=== PATIENT | female | born 1930 | race Caucasian/White ===

== ENCOUNTER → 2016-06-08 | Outpatient (CLI) | payer OTHER ==
[~2016-06-08] MED LIST: ADVIN25/60 INH; ATOR-54 PO; B-COTAB18 PO; CEFP100T7 PO; CHOL100010 PO; CHOL20007 PO; CLOP1TAB54 PO; CMD5 PO; DIGO0.1219 PO; FLUT0.15 NAE; FURO-85 PO; ISOS-11 PO; LISI-725 PO; MAGN400T6 PO; METO25TA3 PO; NITR0.4S UT; PANT1TAB3 PO; PHEN-876 PO; POTA1CAP2 PO; SENN8.6C PO; TPRSR/25 PO; TPRSR50 PO; TRAZ50TA35 PO; TYLOTC500 PO; VNTHFA/IN INH; WARF4TAB8 PO; ZNTT/150 PO
[2016-06-08 10:20] LABS: INR 3.4 (0.9-1.1); PROTHROMBIN TIME (PATIENT) 38.3 SECONDS (9.0-12.0)
== END ==
LOC: C.LABFOXMH 09:32
PROVIDERS: ATTEND Internal Medicine
DX: Z79.01 Long term (current) use of anticoagulants (principal); Z51.81 Encounter for therapeutic drug level monitoring

== ENCOUNTER → 2016-06-22 | Outpatient (CLI) | payer OTHER ==
[~2016-06-22] MED LIST changes: -B-COTAB18 PO; -CEFP100T7 PO; -CHOL20007 PO; -DIGO0.1219 PO; -METO25TA3 PO; -PANT1TAB3 PO; +PANT1TAB48 PO; -PHEN-876 PO; -WARF4TAB8 PO; -ZNTT/150 PO
[2016-06-22 10:04] LABS: PROTHROMBIN TIME (PATIENT) 56.7 SECONDS (9.0-12.0)
== END | disposition home or self-care (01) ==
LOC: C.LABFOXMH 09:07
PROVIDERS: ATTEND Internal Medicine
DX: Z51.81 Encounter for therapeutic drug level monitoring (principal); Z79.01 Long term (current) use of anticoagulants

== ENCOUNTER → 2016-06-29 | Outpatient (CLI) | payer OTHER ==
[2016-06-29 08:57] LABS: ALT/SGPT 24 U/L (12-78); BLOOD UREA NITROGEN 16 mg/dl (7-18); BUN/CREATININE RATIO 20.9 (10-20); CALCIUM 8.9 mg/dl (8.5-10.1); CARBON DIOXIDE 28 mmol/L (21-32); CHLORIDE 109 mmol/L (98-107); CREATININE 0.75 mg/dl (0.60-1.20); GLUCOSE 83 mg/dl (70-99); INR 2.4 (0.9-1.1); POTASSIUM 3.9 mmol/L (3.5-5.1); PROTHROMBIN TIME (PATIENT) 26.3 SECONDS (9.0-12.0); SODIUM 148 mmol/L (136-145)
[2016-06-29 09:00] LABS: ALB/GLOB RATIO 1.3 (0.9-2); ALKALINE PHOSPHATASE 62 U/L (45-117); AST/SGOT 24 U/L (15-37)
== END | disposition home or self-care (01) ==
LOC: C.LABFOXMH 08:29
PROVIDERS: ATTEND Internal Medicine
DX: Z51.81 Encounter for therapeutic drug level monitoring (principal); Z79.01 Long term (current) use of anticoagulants; I10 Essential (primary) hypertension

== ENCOUNTER → 2016-07-13 | Outpatient (CLI) | payer OTHER ==
[2016-07-13 09:53] LABS: INR 2.2 (0.9-1.1); PROTHROMBIN TIME (PATIENT) 24.9 SECONDS (9.0-12.0)
== END | disposition home or self-care (01) ==
LOC: C.LABFOXMH 09:00
PROVIDERS: ATTEND Internal Medicine
DX: Z51.81 Encounter for therapeutic drug level monitoring (principal); Z79.01 Long term (current) use of anticoagulants

== ENCOUNTER → 2016-07-27 | Outpatient (CLI) | payer OTHER ==
[2016-07-27 10:01] LABS: INR 1.8 (0.9-1.1); PROTHROMBIN TIME (PATIENT) 20.1 SECONDS (9.0-12.0)
== END ==
LOC: C.LABFOXMH 08:53
PROVIDERS: ATTEND Internal Medicine
DX: Z79.01 Long term (current) use of anticoagulants (principal)

== ENCOUNTER → 2016-08-10 | Outpatient (CLI) | payer OTHER ==
[2016-08-10 08:51] LABS: PROTHROMBIN TIME (PATIENT) 21.7 SECONDS (9.0-12.0)
== END ==
LOC: C.LABFOXMH 08:20
PROVIDERS: ATTEND Internal Medicine
DX: Z79.01 Long term (current) use of anticoagulants (principal)

== ENCOUNTER → 2016-08-17 | Outpatient (CLI) | payer OTHER | END | disposition home or self-care (01) | LOC: C.LABFOXMH 16:39 | PROVIDERS: ATTEND Internal Medicine | DX: R30.0 Dysuria (principal) ==

== ENCOUNTER → 2016-08-31 | Outpatient (CLI) | payer OTHER ==
[2016-08-31 09:52] LABS: INR 1.9 (0.9-1.1); PROTHROMBIN TIME (PATIENT) 20.7 SECONDS (9.0-12.0)
== END | disposition home or self-care (01) ==
LOC: C.LABFOXMH 09:02
PROVIDERS: ATTEND Internal Medicine
DX: Z79.01 Long term (current) use of anticoagulants (principal)

== ENCOUNTER → 2016-09-21 | Outpatient (CLI) | payer OTHER ==
[~2016-09-21] MED LIST changes: +B-COTAB18 PO; +CEFP100T7 PO; +CHOL20007 PO; +DIGO0.1219 PO; +METO25TA3 PO; +PHEN-876 PO; +WARF4TAB8 PO; +ZNTT/150 PO
[2016-09-21 09:40] LABS: INR 1.5 (0.9-1.1); PROTHROMBIN TIME (PATIENT) 16.2 SECONDS (9.0-12.0)
== END | disposition home or self-care (01) ==
LOC: C.LABFOXMH 08:45
PROVIDERS: ATTEND Internal Medicine
DX: Z79.01 Long term (current) use of anticoagulants (principal)

== ENCOUNTER → 2016-10-05 | Outpatient (CLI) | payer OTHER ==
[2016-10-05 09:05] LABS: BLOOD UREA NITROGEN 11 mg/dl (7-18); BUN/CREATININE RATIO 12.7 (10-20); CARBON DIOXIDE 32 mmol/L (21-32); CHLORIDE 103 mmol/L (98-107); CREATININE 0.83 mg/dl (0.60-1.20); GLUCOSE 99 mg/dl (70-99); INR 2.4 (0.9-1.1); POTASSIUM 3.7 mmol/L (3.5-5.1); SODIUM 142 mmol/L (136-145)
[2016-10-05 09:18] LABS: CALCIUM 9.1 mg/dl (8.5-10.1)
== END | disposition home or self-care (01) ==
LOC: C.LABFOXMH 08:33
PROVIDERS: ATTEND Internal Medicine
DX: Z51.81 Encounter for therapeutic drug level monitoring (principal); Z79.01 Long term (current) use of anticoagulants; I50.30 Unspecified diastolic (congestive) heart failure

== ENCOUNTER → 2016-10-08 | Outpatient (CLI) | payer OTHER ==
--- NOTE | 2016-10-08 15:11 | DIAGNOSTIC IMAGING REPORT ---
CHEST 2 VIEWS ROUTINE CLINICAL HISTORY: Cough. COMPARISON STUDY: Chest radiograph May 07, 2016. FINDINGS: An electronic device projects over the chest. Cardiomediastinal silhouette is stable. There is no evidence of pulmonary edema. There is no pneumothorax or pleural effusion. Mild reticulonodular interstitial thickening is noted within the right lung and left lower lung. There is no confluence consolidation. IMPRESSION: Mild scattered reticulonodular interstitial thickening which may reflect tree-in-bud opacities. No lobar consolidation. Electronically signed by: Charan Echavarria M.D. 10/08/2016 3:10 PM Dictated Date/Time: 10/08/2016 3:08 PM
== END | disposition home or self-care (01) ==
LOC: C.RADBC 14:27
PROVIDERS: ATTEND Internal Medicine
DX: R05 Cough (principal); R91.8 Other nonspecific abnormal finding of lung field

== ENCOUNTER → 2016-10-26 | Outpatient (CLI) | payer OTHER ==
[2016-10-26 11:11] LABS: INR 2.3 (0.9-1.1); PROTHROMBIN TIME (PATIENT) 25.1 SECONDS (9.0-12.0)
== END | disposition home or self-care (01) ==
LOC: C.LABFOXMH 09:37
PROVIDERS: ATTEND Internal Medicine
DX: Z51.81 Encounter for therapeutic drug level monitoring (principal); Z79.01 Long term (current) use of anticoagulants

== ENCOUNTER → 2016-11-16 | Outpatient (CLI) | payer OTHER ==
[2016-11-16 10:39] LABS: INR 2.3 (0.9-1.1); PROTHROMBIN TIME (PATIENT) 25.3 SECONDS (9.0-12.0)
== END | disposition home or self-care (01) ==
LOC: C.LABFOXMH 08:38
PROVIDERS: ATTEND Internal Medicine
DX: Z51.81 Encounter for therapeutic drug level monitoring (principal); Z79.01 Long term (current) use of anticoagulants

== ENCOUNTER → 2016-11-30 | Outpatient (CLI) | payer OTHER | END | disposition home or self-care (01) | LOC: C.LABFOXMH 14:57 | PROVIDERS: ATTEND Internal Medicine | DX: R35.0 Frequency of micturition (principal) ==

== ENCOUNTER → 2016-12-06 | Outpatient (CLI) | payer OTHER ==
[~2016-12-06] MED LIST changes: -B-COTAB18 PO; -CEFP100T7 PO; -CHOL20007 PO; -DIGO0.1219 PO; -METO25TA3 PO; -PHEN-876 PO; -WARF4TAB8 PO; -ZNTT/150 PO
[2016-12-06 08:55] LABS: BLOOD UREA NITROGEN 19 mg/dl (7-18); BUN/CREATININE RATIO 21.6 (10-20); CARBON DIOXIDE 30 mmol/L (21-32); CHLORIDE 107 mmol/L (98-107); CREATININE 0.88 mg/dl (0.60-1.20); GLUCOSE 92 mg/dl (70-99); SODIUM 143 mmol/L (136-145)
[2016-12-06 09:04] LABS: INR 1.7 (0.9-1.1); PARTIAL THROMBOPLASTIN RATIO 1.2; PROTHROMBIN TIME (PATIENT) 18.7 SECONDS (9.0-12.0)
[2016-12-06 09:09] LABS: HEMATOCRIT 41.9 % (37-47); MEAN CELL VOLUME 91.5 fL (80-100); MEAN CORPUSCULAR HEMOGLOBIN 29.9 pg (25-34); MEAN CORPUSCULAR HGB CONC 32.7 g/dl (32-36); PLATELET COUNT 146 K/uL (130-400); RED BLOOD COUNT 4.58 M/uL (4.2-5.4)
== END | disposition home or self-care (01) ==
LOC: C.LABFOXMH 07:54
PROVIDERS: ATTEND Internal Medicine Cardiovascular Disease
DX: Z01.818 Encounter for other preprocedural examination (principal)

== ENCOUNTER 2016-12-09 06:30 | Observation (INO) | payer OTHER ==
[~2016-12-09] VITALS: Ht 157.5 cm; Wt 47.0 kg
[2016-12-09] VITALS (13 sets, daily range): BP systolic 103–172; BP diastolic 62–86; PULSE 52–62; TEMP 36.4–36.8; O2SAT 93–100; Ht 157.5 cm; Wt 47.0 kg
[~2016-12-09 06:30] MED LIST changes: -TPRSR/25 PO
[2016-12-09] MEDS ORDERED: KEFZOL SPECIAL PROCEDURE STOCK 1 GM ADDVIAL IV ONE (07:37)
[2016-12-09] MEDS ORDERED: TPRSR/25 PO (07:41)
[2016-12-09] MEDS ORDERED: BACITRACIN 50000 UNIT VIAL ONE (08:27)
[2016-12-09] MEDS ORDERED: MIDAZOLAM HCL 1 MG/ML 2ML VIAL ONE (08:27)
[2016-12-09] MEDS ORDERED: BACITRACIN OINT 0.9 GM PKT ONE (08:27)
[2016-12-09] MEDS ORDERED: LIDOCAINE HCL 1% 20 ML VIAL ONE ×2 (08:27→09:30)
[2016-12-09] MEDS ORDERED: FENTANYL CITRATE INJ 50 MCG/1 ML 2 ML VIAL ONE (08:27)
--- NOTE | 2016-12-09 08:32 | History & Physical Bridge Note ---
H&P Re-Evaluation Bridge Note: I have examined the patient, reviewed the History & Physical and in the interval since the performance of the History & Physical I have noted the following changes of clinical significance: No changes noted. I reviewed the indications, procedure, risks and alternatives with her and her daughter and they understand and she agrees to proceed. Consent obtained.
--- NOTE | 2016-12-09 08:33 | Procedure Note ---
Pre-Mod Sedation Assessment General Date of Moderate Sedation: Dec 09, 2016. Vital Signs: Vital Signs Past 12 Hours Date Time Temp Pulse Resp B/P (MAP) Pulse Ox O2 Delivery O2 Flow Rate FiO2 12/09/16 07:12 36.4 52 16 154/72 97 Room Air Review Cardiovascular: regular rate, rhythm, + bradycardia Abdomen: normal bowel sounds Lungs: lungs clear Pre-Sedation Airway Assessment Oral Cavity: Capped Teeth Short Thick Neck: No Hx of Sleep Apnea: No Smoking Status: Never Smoker Procedure Planning Contraindications-for Mod Sed: None Yes Notes The planned sedation has been discussed with the patient and consent obtained. I have identified the patient, determined the appropriateness of sedation and have assessed the patient immediately prior to the procedure. All medicine(s) and interventions are by my order.
[2016-12-09] MEDS ORDERED: KETOROLAC TROMETHAMINE 10 MG TAB PO PRN (10:15)
[2016-12-09] MEDS ORDERED: NITROGLYCERIN 0.4 MG SL PER TAB CHARGE UT PRN (10:15)
[2016-12-09] MEDS ORDERED: TRAZODONE HCL 50 MG TAB PO PRN (10:15)
--- NOTE | 2016-12-09 10:16 | Procedure Note ---
Post-Mod Sedation Assessment General Date of Moderate Sedation Dec 09, 2016. Vital Signs: Vital Signs Past 12 Hours Date Time Temp Pulse Resp B/P (MAP) Pulse Ox O2 Delivery O2 Flow Rate FiO2 12/09/16 10:00 59 10 137/71 (93) 99 Mask 4 12/09/16 07:12 36.4 52 16 154/72 97 Room Air Review - Discharge Criteria Vital Signs Stable: Yes Alert/Oriented/Conversant: Yes Returned to Baseline Mental St: Yes Nausea Absent/Minimal: Yes Pain/Discomfort/Absent/Minimal: Yes Normal/Baseline Respirations: Yes Active Bleeding?: No
--- NOTE | 2016-12-09 10:17 | Cardiology Procedure Brief Nt ---
Preliminary Cardiology Note Procedure Date Dec 09, 2016. 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
[2016-12-09] MEDS ORDERED: KETOROLAC TROMETHAMINE 10 MG TAB PO ONE (10:38)
[2016-12-09] MEDS ORDERED: IV FLUIDS COMPLETED PRN (12:15)
[2016-12-09 13:34] LABS: INR 1.1 (0.9-1.1); PROTHROMBIN TIME (PATIENT) 11.6 SECONDS (9.0-12.0)
[2016-12-09] MEDS: METOPROLOL SUCC 25MG EXT REL TAB PO SCH (13:48)
[2016-12-09] MEDS ORDERED: WARFARIN SOD 5 MG TAB PO SCH (16:00)
[2016-12-09] MEDS: CEFAZOLIN IV 1,000 MG in DEXTROSE 5% 50ML 50 ML IV SCH (16:20)
[2016-12-09] MEDS: FLUTICASONE/SALMETEROL 250/50 (ADVAIR) 14 PUFF/1 INHALER INH SCH (21:00)
[2016-12-09] MEDS: ACETAMINOPHEN 325 MG TAB PO PRN (21:50)
[2016-12-10] MEDS: CEFAZOLIN IV 1,000 MG in DEXTROSE 5% 50ML 50 ML IV SCH ×2 (00:06→08:59)
[2016-12-10 04:30] VITALS: BP 174/91; PULSE 61; TEMP 36.8; O2SAT 96
[2016-12-10] MEDS: ACETAMINOPHEN 325 MG TAB PO PRN (06:33)
[2016-12-10 06:51] LABS: INR 1.1 (0.9-1.1); PROTHROMBIN TIME (PATIENT) 11.4 SECONDS (9.0-12.0)
[2016-12-10 07:52] VITALS: BP 161/89; PULSE 60; TEMP 36.4; O2SAT 93
[2016-12-10] MEDS: METOPROLOL SUCC 25MG EXT REL TAB PO SCH (07:56)
[2016-12-10] MEDS: FLUTICASONE/SALMETEROL 250/50 (ADVAIR) 14 PUFF/1 INHALER INH SCH (07:56)
[2016-12-10] MEDS ORDERED: LISINOPRIL 20 MG TAB PO SCH (09:00)
[2016-12-10] MEDS ORDERED: FUROSEMIDE 20 MG TAB PO SCH (09:00)
[2016-12-10] MEDS ORDERED: PANTOprazole SOD 40 MG TAB PO SCH (09:00)
[2016-12-10] MEDS ORDERED: CLOPIDOGREL BISULFATE 75 MG TAB PO SCH (09:00)
[2016-12-10] MEDS ORDERED: ATORVASTATIN 20 MG TAB PO SCH (09:00)
--- NOTE | 2016-12-10 09:29 | DIAGNOSTIC IMAGING REPORT ---
CHEST 2 VIEWS ROUTINE HISTORY:86 yearsFemaleEXACT TIME ORDERED Evaluate for pneumothorax and lead placement COMPARISON: Chest radiographs 10/08/2016. TECHNIQUE: Frontal and lateral views of the chest. FINDINGS: There has been interval removal of the previously described electronic device over the left chest. Interval placement of left pectoral dual-lead pacer with leads overlying the right atrial appendage and right ventricle. The leads appear to be intact. No postprocedural pneumothorax is identified. The cardiac silhouette is enlarged. Bronchiectasis with mild degree of background reticular opacities in a multilobar distribution again noted. The bones appear to be grossly intact. Mild hyperinflation. There is atherosclerosis of the aorta. IMPRESSION: 1. Interval placement of left pectoral dual-lead pacer with leads appearing to be in appropriate position. No postprocedural pneumothorax. 2. Pulmonary hyperinflation with unchanged bronchiectasis and chronic reticular opacities. The above report was generated using voice recognition software. It may contain grammatical, syntax or spelling errors. Electronically signed by: Jg Cowan 12/10/2016 9:28 AM Dictated Date/Time: 12/10/2016 9:25 AM
[2016-12-10] MEDS ORDERED: TPRSR/25 PO (09:30)
--- NOTE | 2016-12-10 09:55 | Discharge Instructions ---
Discharge Instructions Date of Service Dec 10, 2016. Admission Sick Sinus Syndrome Discharge Discharge Diagnosis / Problem: Loop recorder explantation and dual-chamber pacemaker implantation Discharge Goals Goal(s): Improve disease control Activity Recommendations Activity Limitations: as noted below ACTIVITY RECOMMENDATIONS: * Do not raise affected arm over head for 2 weeks. SPECIAL CARE INSTRUCTIONS: * If bleeding occurs, apply direct pressure to area for 5 minutes. * Call your doctor if you have severe pain, fever, drainage or bleeding at site. * Keep dressing on and dry for 48 hours then remove. * Keep any scheduled doctor's appointment. * Implant Card - hand held device with website information given. SKIN IRRITATION: * You may experience some redness and/or swelling in the area where radiation was administered. If any skin irritation occurs, please contact your family physician. FOLLOW UP VISIT: 12/13/2016 @ 10:00 am for incision check 12/29/2016 @ 1:00 pm for pacemaker check . Current Hospital Diet Patient's current hospital diet: AHA Diet (Heart Healthy) Discharge Diet Recommended Diet: AHA Diet (Heart Healthy) Pending Studies Studies pending at discharge: no Medical Emergencies . Who to Call and When: Medical Emergencies: If at any time you feel your situation is an emergency, please call 911 immediately. . Non-Emergent Contact Non-Emergency issues call your: Rag Baler . . "Provider Documentation" section prepared by Radha Hutchinson. . VTE Core Measure Inpt VTE Proph given/why not?: Treatment not indicated
--- NOTE | 2016-12-10 10:09 | Discharge Summary ---
Discharge Summary Admission Date: Dec 09, 2016 at 10:10 Discharge Date: Dec 10, 2016 Discharge Disposition: intermediate facility Primary Diagnosis: Sick sinus syndrome Secondary Diagnoses/Problems: Medical Problems: (1) Atrial fibrillation with RVR Status: Acute (2) Bradycardia Status: Acute (3) Bronchitis Status: Acute (4) Precordial chest pain Status: Acute Procedures: Loop recorder explantation and dual-chamber pacemaker implantation Discharge Instructions Last Recorded Wt (Kilograms): 47.000 Activity Recommendations: limitations as noted below Diet At Discharge: resume previous diet Allergies: Coded Allergies: Alendronate (Unverified Allergy, Mild, GI SYMPTOMS, 05/07/16) Prednisone (Unverified Allergy, Unknown, UNKOWN , 05/07/16) Additional Instructions: ACTIVITY RECOMMENDATIONS: * Do not raise affected arm over head for 2 weeks. SPECIAL CARE INSTRUCTIONS: * If bleeding occurs, apply direct pressure to area for 5 minutes. * Call your doctor if you have severe pain, fever, drainage or bleeding at site. * Keep dressing on and dry for 48 hours then remove. * Keep any scheduled doctor's appointment. * Implant Card - hand held device with website information given. SKIN IRRITATION: * You may experience some redness and/or swelling in the area where radiation was administered. If any skin irritation occurs, please contact your family physician. FOLLOW UP VISIT: Keep any scheduled doctor appointments. Special Care: Call your doctor if: * Temperature above 101 degrees * Pain not relieved by pain medicine ordered * There is increased drainage or redness from any incision * You have any unanswered questions or concerns. Avoid all tobacco products. If you need help to stop smoking, call [place]'s FREE QUITLINE at . This is a free call. Admission HPI The patient returns today for cardiology follow-up. She is accompanied by her daughter. They would like to discuss having the patient set up for implantation of a permanent pacemaker. They would like to discuss the indications, benefits, risks, and alternatives of the pacemaker with me. Patient states that she continues to have episodes of lightheadedness. These are more prominent after quick activities such as playing ping-pong. 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 This can last for several seconds. No syncope. No associated palpitations. She denies any palpitations. No orthopnea or PND. No chest pain or other anginal type pains. She does have occasional lower leg, ankle, and pedal edema. This improved with diuretic therapy. No symptoms suggestive of a CVA or TIA. No symptoms suggestive of a thromboembolic event. Stable appetite. No abdominal pain or nausea. Occasional bright red blood in her stools which she attributes to bleeding hemorrhoids. No black stools. No pulmonary complaints. No urinary complaints. No fevers or chills. She complains of dry skin. No other skin complaints. No HEENT complaints. Daughter states that her mother's cognitive function had decreased after her October 2015 admission. Since then her cognitive function has improved. The patient is again living in her apartment. She had been in assisted following her discharge in October. Admission Physical Exam General appearance is normal. No distress. Head: Normal. Eyes: Anicteric. Conjunctiva pale. No xanthelasma. Pupils equal and round. Neck: Jugular venous pressure less than 7 cm .Carotids 2/2 bilaterally. Normal upstroke. No bruits. Lungs: Clear. No rales or wheezes. Normal respiratory effort. Heart: PMI is normal.No lifts or heaves. Regular rate and rhythm. S1-S2 normal. No S3 or S4. No murmur or rub. Abdomen: Soft and nontender. Normal bowel sounds. No bruits. No palpable masses or organomegaly. Extremities:Trace pretibial edema. No cyanosis or clubbing. Neurologic: Alert and oriented x3. Motor grossly intact. Affect is normal. She walks with use of a cane. Pulses: Distal pulses palpable in all extremities. Skin: No rashes. Hospital Course Patient is an 86-year-old female with paroxysmal atrial fibrillation and sinus node dysfunction who underwent loop recorder explantation and dual-chamber pacemaker implantation on 12/09/[address] Mckeon. She tolerated the procedure well. CXR following device insertion showed no pneumothorax. Device check showed excellent sensing and pacing characteristics. She was hypertensive throughout her hospital stay, therefore, her Metoprolol succinate was increased from 100 to 150 mg daily. Her other medications remained unchanged. She was deemed stable for discharge on 12/10/2016. She will have follow-up for incision check in 3 days and device check in 1 month. Total time spent on discharge = This includes examination of the patient, discharge planning, medication reconciliation, and communication with other providers.
[2016-12-10 10:10] VITALS: BP 153/83; PULSE 60; TEMP 36.4; O2SAT 95
--- NOTE | 2016-12-10 17:31 | Cardiology Follow-Up ---
Subjective Date of Service: Dec 10, 2016. Pt evaluation today including: conversation w/ patient, physical exam, lab review, review of studies, review of inpatient medication list History of Present Illness Feeling well post-pacemaker implantation, no significant discomfort. Social History Smoking Status: Never Smoker History of Alcohol Use: Yes Review of Systems Respiratory: No shortness of breath Cardiac: No chest pain Objective Vital Signs Past 12 Hours Date Time Temp Pulse Resp B/P (MAP) Pulse Ox O2 Delivery O2 Flow Rate FiO2 12/10/16 10:10 36.4 60 18 95 Room Air 12/10/16 08:00 Room Air 12/10/16 07:52 36.4 60 16 161/89 (113) 93 Room Air Last Recorded Weight-Kilograms: 47.000 Physical Exam Constitutional: Level of Distress: NAD Lungs: Auscultation: breath sounds normal Extremities: no edema Pacemaker site is clean and dry, no hematoma or swelling. Data Laboratory Results: Last 24 Hours Test 12/10/16 06:01 Prothrombin Time 11.4 SECONDS Prothromb Time International Ratio 1.1 Imaging: Chest x-ray shows good lead position, no pneumothorax Telemetry reviewed: Normal pacemaker operation Pacemaker evaluation: Excellent pacing and sensing characteristics. Assessment and Plan Doing well post-pacemaker implantation, lead position looks good, pacer interrogation shows excellent function. Stable for discharge. Procedures: Loop recorder explantation and dual-chamber pacemaker implantation
--- NOTE | 2016-12-21 08:42 | [facility] Operative Report ---
Operative Report Date of Service Dec 09, 2016. Operative Report Procedure Date Dec 09, 2016. Pre-Procedure Diagnosis sick sinus syndrome Post-Procedure Diagnosis same Procedure(s) Performed Dual chamber pacemaker implantation Loop recorder explantation Staff Registered Nurse Dr. Mckeon Health Plan Advisor(s) none Estimated Blood Loss 20 cc Preliminary Findings Good lead position, good measurements Recommendations Monitor overnight Specimens Old loop recorder, return to Medtronic Anesthesia local with sedation Description of procedure After obtaining informed consent for the procedure, the patient was brought to the laboratory and prepped and draped in the standard sterile manner. The left prepectoral region was anesthetized with 1% lidocaine local anesthetic and left axillary venipuncture was performed by percutaneous technique and a guidewire placed through the left subclavian vein into the superior vena cava. The area was further infiltrated with 1% lidocaine local anesthetic and a 5 cm incision was made parallel to the left clavicle and 2 cm below it and carried down to the anterior pectoralis fascia. A pacemaker pocket was formed by blunt dissection anterior to the pectoralis fascia and a bacitracin-soaked sponge (50, 000 units in 50 cc normal saline solution) was placed in the pocket. An 8 [place] Medtronic lead introducer was placed over the guidewire into the left subclavian vein, the dilator and guidewire were removed and a bipolar active fixation steroid tipped ventricular lead was advanced through the introducer into the superior vena cava. A guidewire was placed through the introducer and the introducer was stripped from the lead and guidewire. Another 8 Swedish Medtronic lead introducer was placed over the guidewire into the left subclavian vein, the dilator and guidewire were removed and a bipolar active fixation steroid tipped atrial lead was advanced through the introducer into the superior vena cava. A guidewire was placed back through the introducer and the introducer was stripped from the lead and guidewire. Using a curved stylette the ventricular lead was advanced through the right ventricular outflow tract into the pulmonary artery and then using a straight stylette was positioned in the right ventricular apex. The screw was extended fixing the lead in position. Pacing and sensing thresholds were evaluated in bipolar configuration and are recorded on the implant data sheet. Using a curved stylette the atrial lead was positioned in the region of the atrial appendage and the screw extended fixing the lead in position. Pacing and sensing thresholds were evaluated in bipolar configuration and are recorded on the implant data sheet. Once the leads were in position they were attached to the anterior pectoralis fascia using 2 sutures of 2-0 silk around each lead collar. The bacitracin- soaked sponge was removed from the pocket, hemostasis was obtained, the pacemaker was attached to the leads and placed in the pocket with the leads coiled beneath it. The incision was closed with a running double subcutaneous closure of 3-0 V-Lock absorbable suture, followed by running subcuticular skin closure of 4-0 V-Lock absorbable suture. Bacitracin ointment was placed on the incision and a pressure dressing applied. The area of the loop recorder was within the sterile field, therefore the site was anesthetized with 1% lidocaine local anesthetic at the site of the implant scar. A 1 cm incision was made and carried down to the loop recorder. Loop recorder was dissected free of tissue and explanted. The incision was closed with a subcutaneous closure of 4-0 Vicryl followed by a subcuticular skin closure of 4-0 Vicryl. Bacitracin ointment was placed on the incision and a dressing applied. Complication(s) None Disposition Data Processing Auditor recovery I attest to the content of the Intraoperative Record and any orders documented therein. Any exceptions are noted below.
== END 2016-12-10 11:44 ==
LOC: C.ACU 06:30 → C.2T 10:10 → ENRESERV 11:04 → C.2T 17:40
PROVIDERS: ADMIT Internal Medicine Cardiovascular Disease; ATTEND Internal Medicine Cardiovascular Disease
DX: I49.5 Sick sinus syndrome (principal); I44.0 Atrioventricular block, first degree; I48.0 Paroxysmal atrial fibrillation; I25.10 Atherosclerotic heart disease of native coronary artery without angina pectoris; E78.5 Hyperlipidemia, unspecified; F41.8 Other specified anxiety disorders; J45.909 Unspecified asthma, uncomplicated; I42.9 Cardiomyopathy, unspecified; M15.9 Polyosteoarthritis, unspecified; M81.0 Age-related osteoporosis without current pathological fracture; Z86.711 Personal history of pulmonary embolism; Z79.01 Long term (current) use of anticoagulants; Z79.899 Other long term (current) drug therapy

== ENCOUNTER → 2016-12-11 | Outpatient (CLI) | payer OTHER ==
[~2016-12-11] MED LIST changes: -ISOS-11 PO; -MAGN400T6 PO; +TPRSR/25 PO; -TPRSR50 PO; -TYLOTC500 PO; -VNTHFA/IN INH
[2016-12-11 01:42] LABS: URINE APPEARANCE CLEAR (CLEAR); URINE BILIRUBIN NEG (NEG); URINE COLOR YELLOW; URINE EPITHELIAL CELL AUTO >30 /lpf (0-5); URINE NITRITE NEG (NEG); URINE SPECIFIC GRAVITY 1.009 (1.000-1.030); UROBILINOGEN NEG (NEG)
[2016-12-11 01:49] LABS: MANUAL MICROSCOPIC REQUIRED? NO; REVIEW REQ? NO
== END | disposition home or self-care (01) ==
LOC: C.LABFOXMH 15:21
PROVIDERS: ATTEND Internal Medicine
DX: N39.0 Urinary tract infection, site not specified (principal)

== ENCOUNTER → 2016-12-13 | Outpatient (CLI) | payer OTHER ==
[2016-12-13 10:04] LABS: INR 1.2 (0.9-1.1); PROTHROMBIN TIME (PATIENT) 13.4 SECONDS (9.0-12.0)
== END | disposition home or self-care (01) ==
LOC: C.LABFOXDH 09:16
PROVIDERS: ATTEND Internal Medicine
DX: I48.0 Paroxysmal atrial fibrillation (principal)

== ENCOUNTER → 2016-12-21 | Outpatient (CLI) | payer OTHER ==
[2016-12-21 08:50] LABS: INR 2.4 (0.9-1.1); PROTHROMBIN TIME (PATIENT) 26.8 SECONDS (9.0-12.0)
== END ==
LOC: C.LABFOXDH 08:08
PROVIDERS: ATTEND Internal Medicine
DX: I48.0 Paroxysmal atrial fibrillation (principal)

== ENCOUNTER → 2017-01-14 | Outpatient (CLI) | payer OTHER ==
[2017-01-14 09:23] LABS: INR 1.5 (0.9-1.1); PROTHROMBIN TIME (PATIENT) 16.1 SECONDS (9.0-12.0)
== END | disposition home or self-care (01) ==
LOC: C.LABFOXMH 08:53
PROVIDERS: ATTEND Nurse Practitioner Family
DX: Z79.01 Long term (current) use of anticoagulants (principal)

== ENCOUNTER → 2017-01-21 | Outpatient (CLI) | payer OTHER ==
[2017-01-21 10:10] LABS: PROTHROMBIN TIME (PATIENT) 34.1 SECONDS (9.0-12.0)
== END | disposition home or self-care (01) ==
LOC: C.LABFOXMH 09:23
PROVIDERS: ATTEND Internal Medicine
DX: Z79.01 Long term (current) use of anticoagulants (principal)

== ENCOUNTER → 2017-02-04 | Outpatient (CLI) | payer OTHER ==
[2017-02-04 10:33] LABS: BLOOD UREA NITROGEN 19 mg/dl (7-18); BUN/CREATININE RATIO 21.9 (10-20); CALCIUM 9.2 mg/dl (8.5-10.1); CARBON DIOXIDE 32 mmol/L (21-32); CHLORIDE 107 mmol/L (98-107); CREATININE 0.85 mg/dl (0.60-1.20); GLUCOSE 101 mg/dl (70-99); POTASSIUM 4.1 mmol/L (3.5-5.1); SODIUM 142 mmol/L (136-145)
[2017-02-04 10:38] LABS: INR 3.3 (0.9-1.1); PROTHROMBIN TIME (PATIENT) 36.8 SECONDS (9.0-12.0)
== END | disposition home or self-care (01) ==
LOC: C.LABFOXMH 09:53
PROVIDERS: ATTEND Nurse Practitioner Family
DX: R53.83 Other fatigue (principal); I10 Essential (primary) hypertension; Z79.01 Long term (current) use of anticoagulants

== ENCOUNTER → 2017-02-09 | Outpatient (CLI) | payer OTHER | LOC: C.LABFOXMH 14:29 | PROVIDERS: ATTEND Internal Medicine Hospice and Palliative Medicine | DX: R35.0 Frequency of micturition (principal) ==

== ENCOUNTER → 2017-02-11 | Outpatient (CLI) | payer OTHER ==
[2017-02-11 10:04] LABS: INR 3.3 (0.9-1.1); PROTHROMBIN TIME (PATIENT) 37.1 SECONDS (9.0-12.0)
== END ==
LOC: C.LABFOXMH 09:35
PROVIDERS: ATTEND Nurse Practitioner Family
DX: Z79.01 Long term (current) use of anticoagulants (principal)

== ENCOUNTER → 2017-02-25 | Outpatient (CLI) | payer OTHER ==
[2017-02-25 12:56] LABS: INR 2.6 (0.9-1.1); PROTHROMBIN TIME (PATIENT) 29.5 SECONDS (9.0-12.0)
== END ==
LOC: C.LABFOXMH 12:19
PROVIDERS: ATTEND Internal Medicine
DX: R42 Dizziness and giddiness (principal); Z79.01 Long term (current) use of anticoagulants; Z51.81 Encounter for therapeutic drug level monitoring

== ENCOUNTER → 2017-03-08 | Outpatient (CLI) | payer OTHER ==
[2017-03-08 09:59] LABS: INR 2.3 (0.9-1.1); PROTHROMBIN TIME (PATIENT) 25.8 SECONDS (9.0-12.0)
== END | disposition home or self-care (01) ==
LOC: C.LABFOXMH 09:32
PROVIDERS: ATTEND Nurse Practitioner Family
DX: Z51.81 Encounter for therapeutic drug level monitoring (principal); Z79.01 Long term (current) use of anticoagulants

== ENCOUNTER → 2017-03-11 | Outpatient (CLI) | payer OTHER | END | disposition home or self-care (01) | LOC: C.LABFOXAC 13:34 | PROVIDERS: ATTEND Internal Medicine Hospice and Palliative Medicine | DX: R35.0 Frequency of micturition (principal) ==

== ENCOUNTER → 2017-03-15 | Outpatient (CLI) | payer OTHER | END | disposition home or self-care (01) | LOC: C.LABFOXMH 10:32 | PROVIDERS: ATTEND Internal Medicine | DX: R35.0 Frequency of micturition (principal) ==

== ENCOUNTER → 2017-03-24 | Outpatient (CLI) | payer OTHER | END | disposition home or self-care (01) | LOC: C.LABFOXMH 14:43 | PROVIDERS: ATTEND Internal Medicine Hospice and Palliative Medicine | DX: R35.0 Frequency of micturition (principal) ==

== ENCOUNTER → 2017-03-29 | Outpatient (CLI) | payer OTHER ==
[~2017-03-29] MED LIST changes: +B-COTAB18 PO; +CEFP100T7 PO; +CHOL20007 PO; +DIGO0.1219 PO; +MAGN400T6 PO; +METO25TA3 PO; +PHEN-876 PO; +VNTHFA/IN INH; +WARF4TAB8 PO; +ZNTT/150 PO
[2017-03-29 09:53] LABS: INR 2.1 (0.9-1.1); PROTHROMBIN TIME (PATIENT) 23.4 SECONDS (9.0-12.0)
== END | disposition home or self-care (01) ==
LOC: C.LABFOXMH 09:29
PROVIDERS: ATTEND Internal Medicine
DX: Z51.81 Encounter for therapeutic drug level monitoring (principal); Z79.01 Long term (current) use of anticoagulants

== ENCOUNTER → 2017-03-30 | Outpatient (CLI) | payer OTHER ==
--- NOTE | 2017-03-30 12:34 | DIAGNOSTIC IMAGING REPORT ---
CT HEAD WITHOUT CONTRAST (CT) CLINICAL HISTORY: R41.3 Memory [id number] ISCHEMIA COMPARISON STUDY: No previous studies for comparison. TECHNIQUE: Axial CT of the brain is performed from the vertex to the skull base. IV contrast was not administered for this examination. A dose lowering technique was utilized adhering to the principles of ALARA. CT DOSE: 776.86 mGycm FINDINGS: No intra or extra-axial mass lesions are visualized. There is no CT evidence of acute cortical infarction. There is no evidence of midline shift. There is no acute hemorrhage. No calvarial fractures are visualized. There are patchy white matter hypodensities likely on a small vessel basis. There is no evidence of pathologic ventricular dilatation. There is no evidence of acute sinusitis IMPRESSION: No acute intracranial findings Electronically signed by: Odilon Miguel M.D. 03/30/2017 12:33 PM Dictated Date/Time: 03/30/2017 12:32 PM
--- NOTE | 2017-03-30 13:33 | DIAGNOSTIC IMAGING REPORT ---
BILATERAL CAROTID DOPPLER STUDY HISTORY: Cerebral ischemia. COMPARISON: Carotid Doppler 08/13/2013. TECHNIQUE: Real-time, grayscale, and color Doppler sonography of the carotid arteries was performed. Imaging reviewed in the transverse and longitudinal planes. All measurements were calculated based on NASCET criteria. FINDINGS: Antegrade flow is seen in the bilateral vertebral arteries. The brachial pressures are hemodynamically similar. The peak systolic velocity within the right ICA is 87 cm/s. The right systolic ratio is 1.8. The peak systolic velocity within the left ICA is 66 cm/s. The left systolic ratio is 1.3. IMPRESSION: No hemodynamically significant stenosis seen within the carotid arteries. Electronically signed by: Olivier Godoy M.D. 03/30/2017 1:31 PM Dictated Date/Time: 03/30/2017 1:30 PM
== END | disposition home or self-care (01) ==
LOC: C.CTS 11:51
PROVIDERS: ATTEND Psychiatry & Neurology Neurology
DX: I67.82 Cerebral ischemia (principal); R41.3 Other amnesia

== ENCOUNTER → 2017-04-19 | Outpatient (CLI) | payer OTHER ==
[~2017-04-19] MED LIST changes: -CEFP100T7 PO; -CHOL100010 PO; -FURO-85 PO; -LISI-725 PO; -PANT1TAB48 PO; -POTA1CAP2 PO; -TPRSR/25 PO
[2017-04-19 09:53] LABS: INR 2.6 (0.9-1.1)
== END | disposition home or self-care (01) ==
LOC: C.LABFOXMH 08:56
PROVIDERS: ATTEND Internal Medicine
DX: Z51.81 Encounter for therapeutic drug level monitoring (principal); Z79.01 Long term (current) use of anticoagulants

== ENCOUNTER → 2017-05-10 | Outpatient (CLI) | payer OTHER ==
[2017-05-10 10:17] LABS: INR 2.2 (0.9-1.1); PROTHROMBIN TIME (PATIENT) 22.8 SECONDS (9.0-12.0)
== END | disposition home or self-care (01) ==
LOC: C.LABFOXMH 09:06
PROVIDERS: ATTEND Internal Medicine
DX: Z79.01 Long term (current) use of anticoagulants (principal); Z51.81 Encounter for therapeutic drug level monitoring

== ENCOUNTER → 2017-05-27 | Outpatient (CLI) | payer OTHER | END | disposition home or self-care (01) | LOC: C.LABFOXMH 11:32 | PROVIDERS: ATTEND Internal Medicine Hospice and Palliative Medicine | DX: R42 Dizziness and giddiness (principal) ==

== ENCOUNTER → 2017-05-31 | Outpatient (CLI) | payer OTHER ==
[~2017-05-31] MED LIST changes: +ACET-1047 PO; +AMOX1TAB43 PO; +CLC100 PO; +ERGO500011 PO; +GUAI100S66 PO; +LDDP5 TD; +MELATAB2 PO; +NRV5 PO; +OXYC-57 PO; +RANI150T85 PO; +SACC250C3 PO; +ULT50X PO; -ZNTT/150 PO
[2017-05-31 08:22] LABS: INR 1.5 (0.9-1.1)
== END ==
LOC: C.LABFOXMH 08:00
PROVIDERS: ATTEND Internal Medicine
DX: Z51.81 Encounter for therapeutic drug level monitoring (principal); Z79.01 Long term (current) use of anticoagulants; R42 Dizziness and giddiness

== ENCOUNTER → 2017-06-14 | Outpatient (CLI) | payer OTHER ==
[~2017-06-14] MED LIST changes: -ACET-1047 PO; -AMOX1TAB43 PO; -CLC100 PO; -ERGO500011 PO; -GUAI100S66 PO; -LDDP5 TD; -MELATAB2 PO; -NRV5 PO; -OXYC-57 PO; -RANI150T85 PO; -SACC250C3 PO; -ULT50X PO; +ZNTT/150 PO
[2017-06-14 10:13] LABS: INR 2.6 (0.9-1.1)
== END | disposition home or self-care (01) ==
LOC: C.LABFOXMH 09:07
PROVIDERS: ATTEND Internal Medicine
DX: Z51.81 Encounter for therapeutic drug level monitoring (principal); Z79.01 Long term (current) use of anticoagulants

== ENCOUNTER 2017-06-30 12:20 | Inpatient (IN) | payer OTHER ==
[~2017-06-30] VITALS: Ht 157.5 cm; Wt 51.3 kg
[2017-06-30] MEDS ORDERED: ACETAMINOPHEN 325 MG TAB PO STA (12:56)
[2017-06-30] MEDS ORDERED: GUAI100S16 PO (13:29)
[2017-06-30] MEDS ORDERED: MELATAB2 PO (13:29)
--- NOTE | 2017-06-30 13:45 | DIAGNOSTIC IMAGING REPORT ---
CERVICAL SPINE W/O CT DOSE: 1566.45 mGy.cm HISTORY: Trauma. Pain. Fall, neck and low back/tailbone pain TECHNIQUE: Multiaxial CT images of the cervical spine were performed and reformatted in the sagittal and coronal plane without the use of contrast. A dose lowering technique was utilized adhering to the principles of ALARA. COMPARISON: None. FINDINGS: No fractures. No subluxation. Prevertebral soft tissues and the C1-C2 interval are intact. No pneumothorax. Generalized degenerative change. No evidence for compression deformity. IMPRESSION: No fractures within the cervical spine. Generalized degenerative change. No acute process. The above report was generated using voice recognition software. It may contain grammatical, syntax or spelling errors. Electronically signed by: Malcolm Sweeney M.D. 06/30/2017 1:44 PM Dictated Date/Time: 06/30/2017 1:42 PM
--- NOTE | 2017-06-30 13:50 | DIAGNOSTIC IMAGING REPORT ---
CT OF THE HEAD WITHOUT CONTRAST CLINICAL HISTORY: Fall. COMPARISON STUDY: Head CT March 30, 2017. TECHNIQUE: Helical axial images of the head were obtained without IV contrast. Automated exposure control was utilized for the study. A dose lowering technique was utilized adhering to the principles of ALARA. FINDINGS: No acute intracranial hemorrhage, midline shift or mass effect is present. Ventricular system is stable. Basilar cisterns are patent. There are no extra axial collections. Guzman-white differentiation is maintained. Mild white matter hypodensity suggests small vessel disease. There is no calvarial fracture. IMPRESSION: 1. No acute intracranial findings. 2. No calvarial fracture. Electronically signed by: Charan Echavarria M.D. 06/30/2017 1:49 PM Dictated Date/Time: 06/30/2017 1:39 PM
--- NOTE | 2017-06-30 13:57 | EMERGENCY ROOM VISIT NOTE ---
History First contact with patient: 12:46 Chief Complaint: FALL Stated Complaint: FALL History of Present Illness The patient is a 86 year old female who presents to the Emergency Room via ambulance with complaints of "fall". The patient states that earlier today she was walking from [facility] to the [facility] for breakfast, when she tripped on the ground, noting that she was off of the sidewalk and stepped into the swell. She states that she fell backward on her buttocks. She now complains of pain in the tailbone, and notes that the left side of her neck feels tight. She denies any chest pain, shortness of breath, syncope. She did not lose consciousness. She did not strike her head. She states that when she lies flat the pain in the tailbone is very minimal however when she goes to move or takes a deep breath the pain in the tailbone is excruciating. She rates that pain currently as a 10/10. She did have Tylenol earlier today. Review of Systems A complete 10-point Review of Systems was discussed with the patient, with pertinent positives and negatives listed in the History of Present Illness. All remaining Review of Systems questions can be considered negative unless otherwise specified. Past Medical/Surgical History Medical Problems: (1) Anticoagulant long-term use (2) chronic dizziness (3) Congestive heart failure (4) Coronary artery disease (5) Myocardial infarction (6) Pulmonary embolism (7) Retroperitoneal hemorrhage (8) Sick sinus syndrome Surgical Problems: (1) H/O cardiac catheterization (2) H/O percutaneous transluminal coronary angioplasty (3) Stented coronary artery Family History Diabetes mellitus FHx: heart disease Stroke Social History Smoking Status: Never Smoker Drug Use: none Marital Status: Housing Status: [facility] Occupation Status: unemployed, retired Current/Historical Medications Scheduled Atorvastatin (Lipitor), 20 MG PO QAM B-Complex Vitamins (Vitamin B Complex), 50 MG PO QAM Cholecalciferol (Vitamin D3), 2,000 UNITS PO DAILY Clopidogrel Bisulfate (Plavix), 75 MG PO QAM Digoxin (Digox), 125 MCG PO QAM Fluticasone Prop/Salmeterol (Advair Diskus 250/50 60 Dose), 1 PUFF INH BID Magnesium Oxide (Mag-Ox), 400 MG PO QAM Melatonin (Melatonin Maximum Strengt), 5 MG PO HS Metoprolol Succ (Toprol Xl) (Toprol-Xl), 25 MG PO BID Ranitidine (Zantac), 150 MG PO BID Sennosides (Senna), 8.6 MG PO 3XWK Warfarin Sod (Coumadin), 5 MG PO 4XWK Warfarin Sod (Jantoven), 4 MG PO 3XWK Scheduled PRN Albuterol Hfa (Ventolin Hfa), 2 PUFFS INH Q6H PRN for SOB/Wheezing Fluticasone Propionate (Nasal) (Flonase Allergy Relief), 1 SPRAY DWIGHT DAILY PRN for Seasonal Allergies Guaifenesin (Guaifenesin), 10 ML PO Q4H PRN for Cough Nitroglycerin (Nitrostat), 0.4 MG UT UD PRN for Chest Pain Phenazopyridine HCl (Pyridium), 200 MG PO TID PRN for Frequency/Burning w/ Urination Physical Exam Vital Signs Date Time Temp Pulse Resp B/P (MAP) Pulse Ox O2 Delivery O2 Flow Rate FiO2 06/30/17 15:25 70 15 93 06/30/17 15:20 68 18 92 06/30/17 15:15 70 24 92 06/30/17 15:10 69 21 93 06/30/17 15:05 66 21 93 06/30/17 15:00 68 13 91 06/30/17 14:55 66 16 92 06/30/17 14:50 70 24 91 06/30/17 14:45 93 Room Air 06/30/17 14:45 71 16 190/96 94 Room Air 06/30/17 14:45 69 15 06/30/17 14:40 70 20 06/30/17 14:35 70 20 06/30/17 14:30 70 16 94 06/30/17 14:27 69 06/30/17 14:24 190/96 06/30/17 12:34 36.5 71 18 196/102 94 Room Air Physical Exam VITAL SIGNS - Vital signs and nursing notes were reviewed. Stable. Hypertensive. GENERAL -86-year-old female appearing her stated age. Communicates well with provider and answers questions appropriately. SKIN - Gross examination of the entire body surface demonstrates no lacerations to the body surface. HEAD - Normocephalic, Atraumatic. No Sheldon's Sign or Raccoon's Eyes. No depressed skull fractures palpable. EYES - PERRL with EOMI bilaterally. Without subconjunctival hemorrhage. Palpebral conjunctiva pink and moist with no injection. EARS - No deformities of external structures noted on gross examination bilaterally. No hemotympanum present. No tympanic perforation noted. Handle of malleus, umbo, cone of light, pars tensa/flaccid all easily visualized. NOSE - Midline and without cyanosis. No epistaxis or clear watery discharge noted. Septum midline without deviation. No septal hematoma noted. No overlying ecchymosis noted. MOUTH/OROPHARYNX - Without perioral cyanosis. Tongue midline with equal elevation of palate bilaterally. No blood noted in the oropharynx. No tonsillar hypertrophy, erythema, or exudates noted. No dental fractures noted. NECK - no tenderness to palpation over the cervical spinous processes. No cervical paraspinal muscle tenderness noted. LUNGS - Chest wall symmetric without accessory muscle use, intercostals retractions, or central cyanosis. No flail chest or depressed fractures noted. No paradoxical chest wall movements noted. Normal vesicular breath sounds CTA B /L. No wheezes, rales, or rhonchi appreciated. CARDIAC - RRR with S1/S2. No murmur, rubs, or gallops appreciated. ABDOMEN - Abdominal contour normal and without pulsations or visible masses. BS normoactive all four quadrants. No rebound tenderness or guarding noted. EXTREMITIES - No gross deformities noted of the extremities. No tenderness to palpation of the extremities. +5/5 strength noted in UE/LE bilaterally. MUSCULOSKELETAL: There is tenderness to palpation overlying the tailbone. No other spinous tenderness. NEUROLOGIC - Cranial nerves II through XII grossly intact. Sensory intact to light touch throughout. PSYCH - A&Ox3 and cooperates fully with examiner. Pt is very pleasant and interacts well with examiner. Medical Decision & Procedures ER Provider Diagnostic Interpretation: CT OF THE HEAD WITHOUT CONTRAST CLINICAL HISTORY: Fall. COMPARISON STUDY: Head CT March 30, 2017. TECHNIQUE: Helical axial images of the head were obtained without IV contrast. Automated exposure control was utilized for the study. A dose lowering technique was utilized adhering to the principles of ALARA. FINDINGS: No acute intracranial hemorrhage, midline shift or mass effect is present. Ventricular system is stable. Basilar cisterns are patent. There are no extra axial collections. Guzman-white differentiation is maintained. Mild white matter hypodensity suggests small vessel disease. There is no calvarial fracture. IMPRESSION: 1. No acute intracranial findings. 2. No calvarial fracture. Electronically signed by: Charan Echavarria M.D. 06/30/2017 1:49 PM Dictated Date/Time: 06/30/2017 1:39 PM CERVICAL SPINE W/O CT DOSE: 1566.45 mGy.cm HISTORY: Trauma. Pain. Fall, neck and low back/tailbone pain TECHNIQUE: Multiaxial CT images of the cervical spine were performed and reformatted in the sagittal and coronal plane without the use of contrast. A dose lowering technique was utilized adhering to the principles of ALARA. COMPARISON: None. FINDINGS: No fractures. No subluxation. Prevertebral soft tissues and the C1-C2 interval are intact. No pneumothorax. Generalized degenerative change. No evidence for compression deformity. IMPRESSION: No fractures within the cervical spine. Generalized degenerative change. No acute process. The above report was generated using voice recognition software. It may contain grammatical, syntax or spelling errors. Electronically signed by: Malcolm Sweeney M.D. 06/30/2017 1:44 PM Dictated Date/Time: 06/30/2017 1:42 PM LUMBAR SPINE WITHOUT CLINICAL HISTORY: Fall, neck and low back/tailbone pain. COMPARISON STUDY: Lumbar spine radiographs January 08, 2015. FINDINGS: Moderate L3 compression fracture is unchanged. Grade I anterolisthesis of L4 and L5 is unchanged. There is no acute lumbar spine fracture. There is moderate multilevel degenerative disc disease and facet arthrosis. A right sacral ala fracture is partially imaged on this exam. This is better depicted on the CT of the pelvis. There is an associated presacral hematoma. Paravertebral soft tissues are otherwise unremarkable. IMPRESSION: 1. Acute right sacral ala fracture which is better depicted on the CT of the pelvis. Associated presacral hematoma. 2. No acute lumbar spine fracture. 3. Old L3 compression fracture. Electronically signed by: Charan Echavarria M.D. PELVIS CT CT DOSE: HISTORY: Pelvic pain. Fall, neck and low back/tailbone pain TECHNIQUE: Multiaxial CT images of the pelvis were performed and reformatted in the sagittal and coronal plane without the use of contrast. A dose lowering technique was utilized adhering to the principles of ALARA. COMPARISON: Abdomen and pelvis CT 04/03/2017. FINDINGS: Subtle nondisplaced fracture within the anterior cortex of the S2 vertebral body best seen on sagittal image 29. This extends into the right sacral ala no fracture or dislocation within the bilateral hips. Small amount of presacral/retroperitoneal hemorrhage adjacent to the right sacral fracture. This measures up to 1.2 cm in thickness. IMPRESSION: Nondisplaced sacral fracture as described above with a small amount of right presacral/retroperitoneal hemorrhage. Electronically signed by: Olivier Godoy M.D. Laboratory Results 06/30/17 14:30 Red Blood Count 4.83, Mean Corpuscular Volume 91.9, Mean Corpuscular Hemoglobin 30.8, Mean Corpuscular Hemoglobin Concent 33.6, Mean Platelet Volume 9.7, Neutrophils (%) (Auto) 72.3, Lymphocytes (%) (Auto) 14.4, Monocytes (%) (Auto) 10.3, Eosinophils (%) (Auto) 1.9, Basophils (%) (Auto) 0.2, Neutrophils # (Auto ) 4.13, Lymphocytes # (Auto) 0.82, Monocytes # (Auto) 0.59, Eosinophils # (Auto ) 0.11, Basophils # (Auto) 0.01 06/30/17 14:30 Test 06/30/17 14:30 06/30/17 15:11 White Blood Count 5.71 K/uL (4.8-10.8) Red Blood Count 4.83 M/uL (4.2-5.4) Hemoglobin 14.9 g/dL (12.0-16.0) Hematocrit 44.4 % (37-47) Mean Corpuscular Volume 91.9 fL (80-100) Mean Corpuscular Hemoglobin 30.8 pg (25-34) Mean Corpuscular Hemoglobin Concent 33.6 g/dl (32-36) Platelet Count 132 K/uL (130-400) Mean Platelet Volume 9.7 fL (7.4-10.4) Neutrophils (%) (Auto) 72.3 % Lymphocytes (%) (Auto) 14.4 % Monocytes (%) (Auto) 10.3 % Eosinophils (%) (Auto) 1.9 % Basophils (%) (Auto) 0.2 % Neutrophils # (Auto) 4.13 K/uL (1.4-6.5) Lymphocytes # (Auto) 0.82 K/uL (1.2-3.4) Monocytes # (Auto) 0.59 K/uL (0.11-0.59) Eosinophils # (Auto) 0.11 K/uL (0-0.5) Basophils # (Auto) 0.01 K/uL (0-0.2) RDW Standard Deviation 48.6 fL (36.4-46.3) RDW Coefficient of Variation 14.4 % (11.5-14.5) Immature Granulocyte % (Auto) 0.9 % Immature Granulocyte # (Auto) 0.05 K/uL (0.00-0.02) Anion Gap 6.0 mmol/L (3-11) Est Creatinine Clear Calc Drug Dose 46.8 ml/min Estimated GFR () 91.6 Estimated GFR (Non- 79.0 BUN/Creatinine Ratio 25.9 (10-20) Calcium Level 9.4 mg/dl (8.5-10.1) Total Bilirubin 0.9 mg/dl (0.2-1) Aspartate Amino Transf (AST/SGOT) 35 U/L (15-37) Alanine Aminotransferase (ALT/SGPT) 33 U/L (12-78) Alkaline Phosphatase 76 U/L (45-117) Total Protein 6.6 gm/dl (6.4-8.2) Albumin 3.6 gm/dl (3.4-5.0) Globulin 3.0 gm/dl (2.5-4.0) Albumin/Globulin Ratio 1.2 (0.9-2) Prothrombin Time 15.1 SECONDS (9.0-12.0) Prothromb Time International Ratio 1.4 (0.9-1.1) Activated Partial Thromboplast Time 30.1 SECONDS (21.0-31.0) Partial Thromboplastin Ratio 1.2 Medications Administered Medications (Trade) Dose Ordered Sig/Samia Route Start Time Stop Time Status Last Admin Dose Admin Acetaminophen (Tylenol Tab) 325 mg NOW STAT PO 06/30/17 12:56 06/30/17 12:58 DC 06/30/17 13:10 325 MG Sodium Chloride 500 ml @ 100 mls/hr Q5H STAT IV 06/30/17 14:17 06/30/17 19:16 DC 06/30/17 14:41 100 MLS/HR Morphine Sulfate (MoRPHine SULFATE INJ) 1 mg NOW STAT IV 06/30/17 14:17 06/30/17 14:20 DC 06/30/17 14:41 1 MG Medical Decision Patient was seen and evaluated as above. She presents to us today status post fall with pain in the sacral region. She notes no loss of consciousness or syncope. There is no chest pain or shortness of breath. She notes minimal pain in the left side of her neck posteriorly and in the sacral region. Benefits versus risk of obtaining imaging was discussed and the decision was made to obtain a CT scan the patient's head, C-spine, L-spine and pelvis. This was without the use of intravenous contrast. There is no acute process noted in the patient's head or neck however there is an S2 fracture with a small amount of hemorrhage. She is well on exam. IV access was initiated, and the above workup was also performed. There is no concern of leukocytosis or anemia. INR is 1.4. This appears to be subtherapeutic. She is also on Plavix. At this time I will refrain from reversing her coagulation secondary to her low INR. Patient's metabolic panel reveals no evidence of kidney or liver failure. Troponin negative. Urine reveals high pH, 1+ ketones, small amount of leukocyte esterase, greater than 30 epithelial cells and 3+ urine bacteria. This is likely a contaminated sample given the amount of epithelial cells however culture is pending. With the image revealing a fracture, the patient not doing well with ambulation despite Tylenol and morphine I do believe that inpatient management is warranted secondary to a ventilatory dysfunction, the amount of pain she is experiencing, and perhaps observation of the fracture with small hemorrhage to ensure that this does not progress. Potential repeat CT scan in the a.m. is recommended. I spoke with the attending physician, and subsequently the hospitalist, Dr. Braga. He will personally evaluated the patient. The patient will be admitted for further evaluation and management. Please refer to further documentation regarding her stay. In the evaluation and treatment of this patient the following differential diagnoses entertained: Fracture, dislocation, hemorrhage, among others. Patient's medication list was reviewed. Patient was found to be hypotensive I believe secondary to situational and the pain she is experiencing from the fracture today. Impression Primary Impression: Fall Additional Impression: Sacral fracture, closed Departure Information Referrals Alfreda Montalvo (PCP) Patient Instructions My [facility] Problem Qualifiers
--- NOTE | 2017-06-30 14:02 | DIAGNOSTIC IMAGING REPORT ---
LUMBAR SPINE WITHOUT CLINICAL HISTORY: Fall, neck and low back/tailbone pain. COMPARISON STUDY: Lumbar spine radiographs January 08, 2015. FINDINGS: Moderate L3 compression fracture is unchanged. Grade I anterolisthesis of L4 and L5 is unchanged. There is no acute lumbar spine fracture. There is moderate multilevel degenerative disc disease and facet arthrosis. A right sacral ala fracture is partially imaged on this exam. This is better depicted on the CT of the pelvis. There is an associated presacral hematoma. Paravertebral soft tissues are otherwise unremarkable. IMPRESSION: 1. Acute right sacral ala fracture which is better depicted on the CT of the pelvis. Associated presacral hematoma. 2. No acute lumbar spine fracture. 3. Old L3 compression fracture. Electronically signed by: Charan Echavarria M.D. 06/30/2017 2:00 PM Dictated Date/Time: 06/30/2017 1:52 PM
[2017-06-30] MEDS ORDERED: SODIUM CHLORIDE 0.9% 500ML 500 ML IV STA (14:17)
[2017-06-30] MEDS ORDERED: MoRPHine SULFATE 4 MG/ML 1 ML CARP\\VIAL IV STA ×2 (14:17→16:02)
--- NOTE | 2017-06-30 14:28 | EMERGENCY ROOM VISIT NOTE ---
ED Visit Note First contact with patient: 12:46 The patient was seen and examined with Nagi Cheema PA-C. I agree with the history, physical and findings. Please see the note for disposition and details.
[2017-06-30 14:42] LABS: BASO % 0.2 %; BASO ABS # 0.01 K/uL (0-0.2); EOS % 1.9 %; EOS ABS # 0.11 K/uL (0-0.5); HEMATOCRIT 44.4 % (37-47); HEMOGLOBIN 14.9 g/dL (12.0-16.0); IG# 0.05 K/uL (0.00-0.02); LYMPH % 14.4 %; LYMPH ABS # 0.82 K/uL (1.2-3.4); MEAN CELL VOLUME 91.9 fL (80-100); MEAN CORPUSCULAR HEMOGLOBIN 30.8 pg (25-34); MEAN CORPUSCULAR HGB CONC 33.6 g/dl (32-36); MEAN PLATELET VOLUME 9.7 fL (7.4-10.4); MONO % 10.3 %; MONO ABS # 0.59 K/uL (0.11-0.59); NEUT % 72.3 %; NEUT ABS # 4.13 K/uL (1.4-6.5); PLATELET COUNT 132 K/uL (130-400); RED CELL DISTRIBUTION WIDTH CV 14.4 % (11.5-14.5); RED CELL DISTRIBUTION WIDTH SD 48.6 fL (36.4-46.3); WHITE BLOOD COUNT 5.71 K/uL (4.8-10.8)
[2017-06-30 14:59] LABS: ALBUMIN 3.6 gm/dl (3.4-5.0); CALCIUM 9.4 mg/dl (8.5-10.1); CREATININE 0.67 mg/dl (0.60-1.20); POTASSIUM 3.6 mmol/L (3.5-5.1)
[2017-06-30 15:02] LABS: TOTAL PROTEIN 6.6 gm/dl (6.4-8.2)
[2017-06-30 15:33] LABS: INR 1.4 (0.9-1.1); PTT PATIENT 30.1 SECONDS (21.0-31.0)
[2017-06-30] MEDS ORDERED: ALBUTEROL HFA 8 GM INHALER INH PRN (16:00)
[2017-06-30] MEDS ORDERED: MAGNESIUM HYDROXIDE SUSP 30 ML UDC PO PRN (16:00)
[2017-06-30] MEDS ORDERED: NITROGLYCERIN 0.4 MG SL PER TAB CHARGE UT PRN (16:00)
[2017-06-30] MEDS ORDERED: ALUMINUM/MAGNESIUM/SIMETH (MAALOX MAX) 30 ML UDC PO PRN (16:00)
[2017-06-30] MEDS ORDERED: POLYETHYLENE (MIRALAX) 17 GM PACK PO PRN ×2 (16:00→16:30)
[2017-06-30] MEDS ORDERED: ONDANSETRON INJ 2 MG/ML 2 ML VIAL IV PRN (16:00)
--- NOTE | 2017-06-30 16:01 | History and Physical ---
History & Physical Date & Time of Service: Jun 30, 2017 at 15:56 Chief Complaint: FALL Primary Care Physician: Alfreda Montalvo History of Present Illness Source: patient, family 86 y/o F Hx systolic CHF, CAD, PAF, asthma, HTN, HPL. Pt is anticoagulated with Coumadin. She sustained a mechanical fall today and could not ambulate following. Trauma was primarily to her lower back. She arrived on the ER where a lumbar and pelvic CT confirmed a sacral fracture in addition to a small retroperitoneal hemorrhage. Her INR is fortunately subtherapeutic. She denies any symptoms preceding her fall such as palpitations, CP, SOB or lightheadedness. She does suffer from chronic vertigo. She may have c/o CP briefly after falling. 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 Family History Diabetes mellitus FHx: heart disease Stroke Brother with history of CVA Father with history of DM Social History Does not smoke - occasional ETOH - resides in assisted living Smoking Status: Never Smoker Drug Use: none Marital Status: Housing status: assisted living Occupational Status: unemployed, retired Immunizations History of Influenza Vaccine: Yes Influenza Vaccine Date: Feb 23, 2010 History of Tetanus Vaccine?: Yes History of Pneumococcal: Yes Pneumococcal Date: Mar 10, 2007 History of Hepatitis B Vaccine: No Multi-Drug Resistant Organisms History of MDRO: Yes Type of MDRO: MRSA Allergies Coded Allergies: Alendronate (Unverified Allergy, Mild, GI SYMPTOMS, 06/30/17) Prednisone (Unverified Allergy, Unknown, UNKOWN , 06/30/17) Home Medications Scheduled Atorvastatin (Lipitor), 20 MG PO QAM B-Complex Vitamins (Vitamin B Complex), 50 MG PO QAM Cholecalciferol (Vitamin D3), 2,000 UNITS PO DAILY Clopidogrel Bisulfate (Plavix), 75 MG PO QAM Digoxin (Digox), 125 MCG PO QAM Fluticasone Prop/Salmeterol (Advair Diskus 250/50 60 Dose), 1 PUFF INH BID Magnesium Oxide (Mag-Ox), 400 MG PO QAM Melatonin (Melatonin Maximum Strengt), 5 MG PO HS Metoprolol Succ (Toprol Xl) (Toprol-Xl), 25 MG PO BID Ranitidine (Zantac), 150 MG PO BID Sennosides (Senna), 8.6 MG PO 3XWK Warfarin Sod (Coumadin), 5 MG PO 4XWK Warfarin Sod (Jantoven), 4 MG PO 3XWK Scheduled PRN Albuterol Hfa (Ventolin Hfa), 2 PUFFS INH Q6H PRN for SOB/Wheezing Fluticasone Propionate (Nasal) (Flonase Allergy Relief), 1 SPRAY DWIGHT DAILY PRN for Seasonal Allergies Guaifenesin (Guaifenesin), 10 ML PO Q4H PRN for Cough Nitroglycerin (Nitrostat), 0.4 MG UT UD PRN for Chest Pain Phenazopyridine HCl (Pyridium), 200 MG PO TID PRN for Frequency/Burning w/ Urination Review of Systems Constitutional: No fever, No chills, No sweats Eyes: No worsening of vision ENT: No hearing loss, No unusual epistaxis, No nasal symptoms Respiratory: No cough, No sputum, No wheezing Cardiovascular: No chest pain, No orthopnea, No PND Abdomen: No pain, No nausea, No vomiting Musculoskeletal: + joint pain (Back pain as above ) Genitourinary - Female: No dysuria, No urinary frequency, No urinary urgency Neurologic: + memory loss (chronic), + weakness, + vertigo (chronic), No paralysis Psychiatric: No depression symptoms Endocrine: No fatigue Hematologic / Lymphatic: No abnormal bleeding/bruising Integumentary: No rash Allergic / Immunologic: No environmental allergies Physical Exam Vital Signs Date Time Temp Pulse Resp B/P (MAP) Pulse Ox O2 Delivery O2 Flow Rate FiO2 06/30/17 14:45 93 Room Air 06/30/17 14:45 71 16 190/96 94 Room Air 06/30/17 14:27 69 06/30/17 12:34 36.5 71 18 196/102 94 Room Air General Appearance: WD/WN, no apparent distress Head: normocephalic Eyes: normal inspection, EOMI ENT: normal ENT inspection, pharynx normal Neck: supple, no JVD Respiratory/Chest: chest non-tender, lungs clear, normal breath sounds Cardiovascular: regular rate, rhythm, no edema, no gallop Abdomen/GI: normal bowel sounds, non tender, soft Back: normal inspection, no CVA tenderness Extremities/Musculoskelatal: normal inspection, no calf tenderness, normal capillary refill, + pertinent finding (There was no tenderness to palpation of the lower back) Neurologic/Psych: engineer design and construction II-XII nml as tested, no motor/sensory deficits, alert Skin: normal color Diagnostics Laboratory Results Results Past 24 Hours Test 06/30/17 14:30 06/30/17 15:11 Range/Units White Blood Count 5.71 4.8-10.8 K/uL Red Blood Count 4.83 4.2-5.4 M/uL Hemoglobin 14.9 12.0-16.0 g/dL Hematocrit 44.4 37-47 % Mean Corpuscular Volume 91.9 80-100 fL Mean Corpuscular Hemoglobin 30.8 25-34 pg Mean Corpuscular Hemoglobin Concent 33.6 32-36 g/dl Platelet Count 132 130-400 K/uL Mean Platelet Volume 9.7 7.4-10.4 fL Neutrophils (%) (Auto) 72.3 % Lymphocytes (%) (Auto) 14.4 % Monocytes (%) (Auto) 10.3 % Eosinophils (%) (Auto) 1.9 % Basophils (%) (Auto) 0.2 % Neutrophils # (Auto) 4.13 1.4-6.5 K/uL Lymphocytes # (Auto) 0.82 1.2-3.4 K/uL Monocytes # (Auto) 0.59 0.11-0.59 K/uL Eosinophils # (Auto) 0.11 0-0.5 K/uL Basophils # (Auto) 0.01 0-0.2 K/uL RDW Standard Deviation 48.6 36.4-46.3 fL RDW Coefficient of Variation 14.4 11.5-14.5 % Immature Granulocyte % (Auto) 0.9 % Immature Granulocyte # (Auto) 0.05 0.00-0.02 K/uL Sodium Level 139 136-145 mmol/L Potassium Level 3.6 3.5-5.1 mmol/L Chloride Level 106 98-107 mmol/L Carbon Dioxide Level 28 21-32 mmol/L Anion Gap 6.0 3-11 mmol/L Blood Urea Nitrogen 17 7-18 mg/dl Creatinine 0.67 0.60-1.20 mg/dl Est Creatinine Clear Calc Drug Dose 46.8 ml/min Estimated GFR () 91.6 Estimated GFR (Non- 79.0 BUN/Creatinine Ratio 25.9 10-20 Random Glucose 87 70-99 mg/dl Calcium Level 9.4 8.5-10.1 mg/dl Total Bilirubin 0.9 0.2-1 mg/dl Aspartate Amino Transf (AST/SGOT) 35 15-37 U/L Alanine Aminotransferase (ALT/SGPT) 33 12-78 U/L Alkaline Phosphatase 76 45-117 U/L Total Protein 6.6 6.4-8.2 gm/dl Albumin 3.6 3.4-5.0 gm/dl Globulin 3.0 2.5-4.0 gm/dl Albumin/Globulin Ratio 1.2 0.9-2 Prothrombin Time 15.1 9.0-12.0 SECONDS Prothromb Time International Ratio 1.4 0.9-1.1 Activated Partial Thromboplast Time 30.1 21.0-31.0 SECONDS Partial Thromboplastin Ratio 1.[address] lumbar: 1. Acute right sacral ala fracture which is better depicted on the CT of the pelvis. Associated presacral hematoma. 2. No acute lumbar spine fracture. 3. Old L3 compression fracture. CT pelvis: Nondisplaced sacral fracture as described above with a small amount of right presacral/retroperitoneal hemorrhage. Normal EKG Impression Assessment and Plan 86 y/o F Hx systolic CHF, CAD, PAF, asthma, HTN, HPL. Pt is anticoagulated with Coumadin. She sustained a mechanical fall today and could not ambulate following. Trauma was primarily to her lower back. She arrived on the ER where a lumbar and pelvic CT confirmed a sacral fracture in addition to a small retroperitoneal hemorrhage. Her INR is fortunately subtherapeutic. She denies any symptoms preceding her fall such as palpitations, CP, SOB or lightheadedness. 1) Fall, low back pain, sacral fracture, retroperitoneal hematoma. The pt cannot currently ambulate and will need transfer to rehab. PT/OT eval is requested. As she developed a small hematoma, we will re-image AM to evaluate for expansion. Her Coumadin and Plavix are held. INR is subtherapeutic on admission. 2) CAD - per daughter, after falling she may have c/o CP - there are no EKG changes to support ischemia - we will check a trop. Resume Plavix at earliest time - cont Statin, Bblocker 3) CHF - euvolemic on admission - received IVF in ER - does not normally require diuretics - monitor volume status - cont Metoprolol 4) PAF - paced rhythm currently - resume COumdin when possible - cont B yudi , Dig Full code - SCDs Total time for this admit including review pf labs, meds, imaging, records - discussion with pt, daughter and ER attending - 33 min Level of Care Med/Surg Resuscitation Status FULL RESUSCITATION VTE Prophylaxis VTE Risk Assessment Done? Y/N: Yes Risk Level: Moderate Given or contraindicated: SCD's
[2017-06-30 16:23] VITALS: Ht 157.5 cm; Wt 51.3 kg
[2017-06-30] MEDS ORDERED: IV FLUIDS COMPLETED PRN (16:30)
[2017-06-30] MEDS ORDERED: DOCUSATE SODIUM 100 MG CAP PO ONE (16:30)
[2017-06-30] MEDS ORDERED: OXYCODONE/ACETAMINOPHEN 5-325 TAB ONE (17:01)
[2017-06-30] MEDS: OXYCODONE/ACETAMINOPHEN 5-325 TAB PO PRN ×2 (17:06→23:59)
[2017-06-30 17:30] VITALS: BP_SYST 201; BP_SYST 206; BP_DIAS 104; BP_DIAS 95; PULSE 74; TEMP 37.3; O2SAT 92
[2017-06-30 17:52] VITALS: BP 189/93
[2017-06-30] MEDS: FLUTICASONE/SALMETEROL 250/50 (ADVAIR) 14 PUFF/1 INHALER INH SCH (20:58)
[2017-06-30] MEDS: RANITIDINE HCL 150 MG TAB PO SCH (21:01)
[2017-06-30] MEDS: METOPROLOL SUCC 25MG EXT REL TAB PO SCH (21:01)
[2017-06-30] MEDS: DOCUSATE SODIUM 100 MG CAP PO SCH (21:02)
[2017-06-30] MEDS: TRAZODONE HCL 50 MG TAB PO SCH (21:02)
[2017-06-30] MEDS ORDERED: SODIUM CHLORIDE 0.65% NA SOLN 45 ML (OCEAN) ONE (21:27)
[2017-06-30 22:21] VITALS: BP 202/81; PULSE 72; TEMP 37; O2SAT 90
[2017-06-30] MEDS ORDERED: HydrALAZINE HCL 20 MG/ML VIAL IV. PRN (23:30)
[2017-06-30 23:41] VITALS: BP 182/93; PULSE 76
[2017-07-01] VITALS (7 sets, daily range): BP systolic 131–176; BP diastolic 75–92; PULSE 66–85; TEMP 36.8–37.3; O2SAT 91–94
--- NOTE | 2017-07-01 08:18 | DIAGNOSTIC IMAGING REPORT ---
CT SCAN OF THE PELVIS WITHOUT IV CONTRAST CLINICAL HISTORY: Sacral fracture. Follow-up retroperitoneal hemorrhage. COMPARISON STUDY: Pelvic CT dated 04/03/2017 and 06/30/2017. TECHNIQUE: CT scan of the pelvis is performed from the pelvic inlet to the proximal femora. Images are reviewed in the axial, sagittal, and coronal planes. IV contrast was not administered for this examination. A dose lowering technique was utilized adhering to the principles of ALARA. CT DOSE: 160.93 mGy.cm FINDINGS: The skeletal structures are osteopenic. Again seen is a nondistracted fracture of S2 which also involves the right sacral ala. No new fracture is seen. The remainder of the bony pelvis and the proximal femora appear maintained. Lumbosacral spondylosis is partially imaged. There is trace presacral/retroperitoneal hemorrhage identified, not significantly changed from previous. There is advanced atherosclerotic calcification of the visualized abdominal aorta and the iliac vessels. No intramuscular hematoma is suggested within the psoas muscles. The bladder wall appears circumferentially thickened. The uterus and adnexa are normal as visualized. The cervix appears enlarged, similar to previous. There is evidence of pelvic floor prolapse. No pelvic sidewall, inguinal, or iliac chain adenopathy is seen. The visualized bowel loops are normal in caliber. IMPRESSION: 1. Unchanged appearance of a nondistracted right sacral fracture as above. 2. Trace presacral/retroperitoneal blood is unchanged from previous. No enlarging hematoma is identified. 3. Mild circumferential bladder wall thickening is suggested. Correlation with urinalysis will be required. Dictated: 07/01/2017 8:01 AM Transcribed: 07/01/2017 8:18 AM Satinder Electronically signed by: Agus Jo M.D. 07/01/2017 8:23 AM Dictated Date/Time: 07/01/2017 8:01 AM
[2017-07-01] MEDS: ACETAMINOPHEN 325 MG TAB PO PRN (08:38)
[2017-07-01] MEDS: MAGNESIUM OXIDE 400 MG TAB PO SCH (08:40)
[2017-07-01] MEDS: RANITIDINE HCL 150 MG TAB PO SCH ×2 (08:40→21:05)
[2017-07-01] MEDS: DOCUSATE SODIUM 100 MG CAP PO SCH ×2 (08:40→21:05)
[2017-07-01] MEDS: METOPROLOL SUCC 25MG EXT REL TAB PO SCH ×2 (08:40→21:05)
[2017-07-01] MEDS: ATORVASTATIN 20 MG TAB PO SCH (08:41)
[2017-07-01] MEDS: FLUTICASONE/SALMETEROL 250/50 (ADVAIR) 14 PUFF/1 INHALER INH SCH ×2 (08:41→21:04)
[2017-07-01] MEDS ORDERED: NURSING VERBAL MED ORDER ONE (12:30)
[2017-07-01] MEDS: TRAMADOL HCL 50 MG TAB PO PRN ×2 (14:19→23:52)
--- NOTE | 2017-07-01 16:44 | Orthopedic Consultation ---
Orthopedic Consultation Date of Consultation: Jul 01, 2017. Attending Physician: Xander Manzo MD Reason for Consultation: Sacral fx History of Present Illness Ayanna is a 86 y/o female who was walking from [facility] when she fell. She was unable to get up and was brought by ambulance to the ER. She had ct scans which showed a right sided sacral ala fx and hematoma. She complains of pain in the sacral area at this time. She has had some neck pain. Denies hip or groin pain. Past Medical/Surgical History Medical Problems: (1) Atrial fibrillation with RVR Status: Acute (2) Bradycardia Status: Acute (3) Bronchitis Status: Acute (4) Fall Status: Acute (5) Precordial chest pain Status: Acute (6) Sacral fracture, closed Status: Acute (7) Urinary tract infection Status: Acute Family History Diabetes mellitus FHx: heart disease Stroke Social History Smoking Status: Never Smoker Drug Use: none Marital Status: Housing Status: [facility] Occupation Status: unemployed, retired Allergies Coded Allergies: Alendronate (Unverified Allergy, Mild, GI SYMPTOMS, 06/30/17) Prednisone (Unverified Allergy, Unknown, UNKOWN , 06/30/17) Home Medications Scheduled Atorvastatin (Lipitor), 20 MG PO QAM B-Complex Vitamins (Vitamin B Complex), 50 MG PO QAM Cholecalciferol (Vitamin D3), 2,000 UNITS PO DAILY Clopidogrel Bisulfate (Plavix), 75 MG PO QAM Digoxin (Digox), 125 MCG PO QAM Fluticasone Prop/Salmeterol (Advair Diskus 250/50 60 Dose), 1 PUFF INH BID Magnesium Oxide (Mag-Ox), 400 MG PO QAM Melatonin (Melatonin Maximum Strengt), 5 MG PO HS Metoprolol Succ (Toprol Xl) (Toprol-Xl), 25 MG PO BID Ranitidine (Zantac), 150 MG PO BID Sennosides (Senna), 8.6 MG PO 3XWK Warfarin Sod (Coumadin), 5 MG PO 4XWK Warfarin Sod (Jantoven), 4 MG PO 3XWK Scheduled PRN Albuterol Hfa (Ventolin Hfa), 2 PUFFS INH Q6H PRN for SOB/Wheezing Fluticasone Propionate (Nasal) (Flonase Allergy Relief), 1 SPRAY DWIGHT DAILY PRN for Seasonal Allergies Guaifenesin (Guaifenesin), 10 ML PO Q4H PRN for Cough Nitroglycerin (Nitrostat), 0.4 MG UT UD PRN for Chest Pain Phenazopyridine HCl (Pyridium), 200 MG PO TID PRN for Frequency/Burning w/ Urination Current Inpatient Medications Current Inpatient Medications Medications (Trade) Dose Ordered Sig/Samia Route Start Time Stop Time Status Last Admin Dose Admin Albuterol (Ventolin Hfa Inhaler) 2 puffs Q6H PRN INH 06/30/17 16:00 07/30/17 15:59 Atorvastatin Calcium (Lipitor Tab) 20 mg QAM PO 07/01/17 09:00 07/31/17 08:59 07/01/17 08:41 20 MG Digoxin (Lanoxin Tab) 0.125 mg DAILY@1600 PO 07/01/17 16:00 07/31/17 15:59 Salmeterol Xinafoate/ Fluticasone (Advair Diskus 250/50 Inh) 1 puff BID INH 06/30/17 21:00 07/30/17 20:59 07/01/17 08:41 1 PUFF Magnesium Oxide (Mag-Ox Tab) 400 mg QAM PO 07/01/17 09:00 07/31/17 08:59 07/01/17 08:40 400 MG Metoprolol Succinate (Toprol Xl Tab) 25 mg BID PO 06/30/17 21:00 07/30/17 20:59 07/01/17 08:40 25 MG Nitroglycerin (Nitrostat Tab) 0.4 mg UD PRN UT 06/30/17 16:00 07/30/17 15:59 Ranitidine HCl (zANTac TAB) 150 mg BID PO 06/30/17 21:00 07/30/17 20:59 07/01/17 08:40 150 MG Acetaminophen (Tylenol Tab) 650 mg Q4H PRN PO 06/30/17 16:00 07/30/17 15:59 07/01/17 08:38 650 MG Al Hydrox/Mg Hydrox/Simethicone (Maalox Max Susp) 15 ml Q4H PRN PO 06/30/17 16:00 07/30/17 15:59 Magnesium Hydroxide (Milk Of Magnesia Susp) 30 ml Q6H PRN PO 06/30/17 16:00 07/30/17 15:59 Polyethylene (Miralax Powder Packet) 17 gm DAILY PRN PO 06/30/17 16:00 07/30/17 15:59 Ondansetron HCl (Zofran Inj) 4 mg Q6H PRN IV 06/30/17 16:00 07/30/17 15:59 Miscellaneous (Iv Fluids Completed) 1 ea PRN PRN N/A 06/30/17 16:30 06/30/18 16:29 Oxycodone/ Acetaminophen (Percocet 5-325mg Tab) 1 tab Q4H PRN PO 06/30/17 16:30 07/14/17 16:29 06/30/17 23:59 1 TAB Docusate Sodium (coLACE CAP) 100 mg BID PO 06/30/17 21:00 07/30/17 20:59 07/01/17 08:40 100 MG Trazodone HCl (Desyrel Tab) 50 mg HSZ PO 06/30/17 22:00 07/30/17 21:59 06/30/17 21:02 50 MG Hydralazine HCl (HydrALAZINE INJ) 5 mg Q6H PRN IV. 06/30/17 23:30 07/30/17 23:29 06/30/17 23:42 5 MG Tramadol HCl (Ultram Tab) 50 mg Q6H PRN PO 07/01/17 13:15 07/31/17 13:14 07/01/17 14:19 50 MG Physical Exam Date Time Temp Pulse Resp B/P (MAP) Pulse Ox O2 Delivery O2 Flow Rate FiO2 07/01/17 15:31 36.8 74 16 169/92 (117) 92 Room Air 07/01/17 11:45 Room Air 07/01/17 08:00 94 Room Air 07/01/17 07:39 36.8 66 15 176/78 (110) 94 Room Air 07/01/17 04:57 71 131/75 (93) 06/30/17 23:41 76 182/93 (122) 06/30/17 23:30 Room Air 06/30/17 23:04 Room Air 06/30/17 22:21 37.0 72 18 202/81 (121) 90 Room Air 06/30/17 17:52 189/93 (125) 06/30/17 17:30 201/104 (136) 06/30/17 17:30 37.3 74 16 206/95 (132) 92 Room Air 06/30/17 17:28 89 169/81 96 She is alert, NAD. She has some pain of her neck. She has painless ROM of BUE. No swelling or tenderness. She has no groin pain with ROM of Bilat hips. Good hip motion. She does have some pain around the sacrum with motion of her hips. CT scan of the cervical, lumbar spine, and pelvis were reviewed and show an old lumbar compression fx. She has right sided sacral ala fx and hematoma. No other fractures are seen. Laboratory Results Last 24 Hours Test 06/30/17 18:17 Troponin I < 0.015 ng/ml Assessment & Plan Assessment: Right sacral ala fracture Plan: She was seen and examined by Dr. Weber today as well. We discussed the ct scan results and treatment with her and her son. This is a stable type of pelvis fracture. She can WBAT and will likely need a walker for a period of time , possibly 3 months. We did tell them that this can take 3 months to heal but it is okay to weightbear. We'd recommend KATYA's and SCD's for dvt prophylaxis. She is already on coumadin and plavix. She can follow up in clinic in approx 1 month.
[2017-07-01] MEDS: DIGOXIN 0.125 MG TAB PO SCH (16:46)
--- NOTE | 2017-07-01 20:40 | Progress Note ---
Subjective Date of Service: Jul 01, 2017. Subjective Pt evaluation today including: conversation w/ patient, physical exam, chart review, lab review, review of studies, review of inpatient medication list Pain: adequate PO Intake: tolerated oral intake well Voiding: no voiding problems Problem List Medical Problems: (1) Atrial fibrillation with RVR Status: Acute (2) Bradycardia Status: Acute (3) Bronchitis Status: Acute (4) Fall Status: Acute (5) Precordial chest pain Status: Acute (6) Sacral fracture, closed Status: Acute (7) Urinary tract infection Status: Acute Review of Systems Constitutional: No see HPI, No fever, No chills, No sweats, No weight loss, No weakness, No fatigue, No problem reported Eyes: No see HPI, No worsening of vision, No eye pain, No redness, No discharge , No diplopia, No problem reported ENT: No see HPI, No hearing loss, No unusual epistaxis, No nasal symptoms, No sore throat, No tinnitus, No dental problems, No trouble swallowing, No problem reported Respiratory: No see HPI, No cough, No sputum, No wheezing, No shortness of breath, No dyspnea on exertion, No dyspnea at rest, No hemoptysis, No problem reported Cardiac: No see HPI, No chest pain, No orthopnea, No PND, No edema, No claudication, No palpitations, No problem reported Breast: No see HPI, No breast lump, No change in shape, No nipple discharge, No breast pain, No problem reported Abdomen: No see HPI, No pain, No nausea, No vomiting, No diarrhea, No constipation, No GI bleeding, No problem reported Musculoskeletal: + joint pain, + problem reported (back pain), No see HPI, No muscle pain, No swelling, No calf pain Female : No see HPI, No dysuria, No urinary frequency, No hematuria, No incontinence, No abnormal vaginal bleeding, No vaginal discharge, No problem reported Neurologic: No see HPI, No memory loss, No paralysis, No weakness, No numbness/ tingling, No vertigo, No balance problems, No problem reported Psychiatric: No see HPI, No depression symptoms, No anhedonism, No anxiety, No insomnia, No substance abuse, No problem reported Heme: No see HPI, No abnormal bleeding/bruising, No clotting problems, No swollen lymph nodes, No night sweats, No problem reported Endo: No see HPI, No fatigue, No excessive thirst, No excessive urination, No problem reported Skin: No see HPI, No rash, No itch, No new/changing skin lesions, No color change, No bleeding, No problem reported Objective Vital Signs Date Time Temp Pulse Resp B/P (MAP) Pulse Ox O2 Delivery O2 Flow Rate FiO2 07/01/17 16:46 78 07/01/17 16:44 78 07/01/17 15:31 36.8 74 16 169/92 (117) 92 Room Air 07/01/17 11:45 Room Air 07/01/17 08:00 94 Room Air 07/01/17 07:39 36.8 66 15 176/78 (110) 94 Room Air 07/01/17 04:57 71 131/75 (93) 06/30/17 23:41 76 182/93 (122) 06/30/17 23:30 Room Air 06/30/17 23:04 Room Air 06/30/17 22:21 37.0 72 18 202/81 (121) 90 Room Air Physical Exam General Appearance: WD/WN, no apparent distress Eyes: normal inspection, EOMI ENT: normal ENT inspection, hearing grossly normal Neck: supple Respiratory/Chest: chest non-tender, lungs clear, normal breath sounds, no respiratory distress, no accessory muscle use Cardiovascular: regular rate, rhythm, no edema, no gallop, no JVD, no murmur Abdomen: normal bowel sounds, non tender, soft, no organomegaly, no pulsatile mass Extremities: normal range of motion, non-tender, normal inspection, no pedal edema, no calf tenderness Neurologic/Psychiatric: ear flap binder II-XII nml as tested, no motor/sensory deficits, alert, normal mood/affect, oriented x 3 Skin: normal color, warm/dry, no rash Assessment and Plan 86 year old female with history of coronary artery disease, paroxysmal atrial fibrillation and Coumadin, asthma, hypertension, dyslipidemia and systolic congestive heart failure. Patient had a mechanical fall and came to the ED with lower back pain. CT scan confirmed sacral fracture and a small retroperitoneal hematoma. Her INR was 1.3 and Coumadin was held, patient was admitted to medical floor Assessment Retroperitoneal hematoma status post fall Sacral fracture status post fall, likely osteoporosis contributed to the fracture Status post mechanical fall from ground level Coronary artery disease Systolic congestive heart failure currently stable Paroxysmal atrial fibrillation on Coumadin, currently subtherapeutic Plan Orthopedic consult appreciated Recommended weightbearing as tolerated and possibly using a walker No orthopedic intervention is required at this point We'll start patient on vitamin D supplement We'll order physical therapy/occupational therapy Continue holding Coumadin/Plavix Repeat CT scan of abdomen was noted, no change in hematoma size Type and cross without transfusion Continue statin and beta yudi SCD boot for DVT prophylaxis Continued [facility] stay due to: ambulation difficulties, multiple IV medications needed
[2017-07-01] MEDS ORDERED: ERGOCALCIFEROL 50,000 INTER.UNIT CAP PO SCH (22:15)
[2017-07-01] MEDS: TRAZODONE HCL 50 MG TAB PO SCH (22:16)
[2017-07-02 06:07] VITALS: BP 161/81
[2017-07-02] MEDS: TRAMADOL HCL 50 MG TAB PO PRN (06:18)
[2017-07-02 07:10] VITALS: BP 172/91; PULSE 81; TEMP 36.7; O2SAT 92
[2017-07-02] MEDS: DOCUSATE SODIUM 100 MG CAP PO SCH ×2 (07:39→21:38)
[2017-07-02] MEDS: FLUTICASONE/SALMETEROL 250/50 (ADVAIR) 14 PUFF/1 INHALER INH SCH ×2 (07:39→21:38)
[2017-07-02] MEDS: ATORVASTATIN 20 MG TAB PO SCH (07:39)
[2017-07-02] MEDS: METOPROLOL SUCC 25MG EXT REL TAB PO SCH ×2 (07:40→21:38)
[2017-07-02] MEDS: MAGNESIUM OXIDE 400 MG TAB PO SCH (07:40)
[2017-07-02] MEDS: RANITIDINE HCL 150 MG TAB PO SCH ×2 (07:40→21:38)
[2017-07-02 08:00] VITALS: O2SAT 92
[2017-07-02 08:04] LABS: BASO % 0.3 %; BASO ABS # 0.02 K/uL (0-0.2); EOS % 3.4 %; EOS ABS # 0.25 K/uL (0-0.5); HEMATOCRIT 42.5 % (37-47); HEMOGLOBIN 14.8 g/dL (12.0-16.0); IG# 0.02 K/uL (0.00-0.02); LYMPH % 5.1 %; LYMPH ABS # 0.37 K/uL (1.2-3.4); MEAN CELL VOLUME 90.8 fL (80-100); MEAN CORPUSCULAR HEMOGLOBIN 31.6 pg (25-34); MEAN CORPUSCULAR HGB CONC 34.8 g/dl (32-36); MEAN PLATELET VOLUME 9.8 fL (7.4-10.4); MONO ABS # 1.09 K/uL (0.11-0.59); NEUT % 75.9 %; NEUT ABS # 5.52 K/uL (1.4-6.5); PLATELET COUNT 118 K/uL (130-400); RED CELL DISTRIBUTION WIDTH CV 14.2 % (11.5-14.5); RED CELL DISTRIBUTION WIDTH SD 47.7 fL (36.4-46.3); WHITE BLOOD COUNT 7.27 K/uL (4.8-10.8)
[2017-07-02 08:12] LABS: INR 2.1 (0.9-1.1)
[2017-07-02 08:33] LABS: ALBUMIN 3.2 gm/dl (3.4-5.0); CALCIUM 9.1 mg/dl (8.5-10.1); CREATININE 0.66 mg/dl (0.60-1.20); POTASSIUM 3.7 mmol/L (3.5-5.1)
[2017-07-02 08:36] LABS: TOTAL PROTEIN 6.4 gm/dl (6.4-8.2)
[2017-07-02] MEDS ORDERED: AMOXICILLIN/CLAVULANATE TAB 875 MG TAB PO ONE (10:30)
--- NOTE | 2017-07-02 10:46 | Hospitalist Progress Note ---
Hospitalist Progress Note Date of Service Jul 02, 2017. Subjective Pt evaluation today including: conversation w/ patient, conversation w/ family Voiding: no voiding problems Pt states pain in sacral region worse with cough and movement, pain meds help. Son is at bedside. When asked her name, she tells me her full maiden name and has to be reminded by her son that she goes by her name. All Other Systems: Reviewed and Negative Objective Vital Signs Date Time Temp Pulse Resp B/P (MAP) Pulse Ox O2 Delivery O2 Flow Rate FiO2 07/02/17 08:00 92 Room Air 07/02/17 07:10 36.7 81 16 172/91 (118) 92 Room Air 07/02/17 06:07 161/81 (107) 07/01/17 23:35 Room Air 07/01/17 23:05 37.3 85 18 163/78 (106) 91 Room Air 07/01/17 21:03 79 173/80 (111) 07/01/17 16:46 78 07/01/17 16:44 78 07/01/17 15:31 36.8 74 16 169/92 (117) 92 Room Air 07/01/17 11:45 Room Air Physical Exam General Appearance: no apparent distress, + thin Eyes: normal inspection, sclerae normal ENT: hearing grossly normal Neck: trachea midline Respiratory/Chest: lungs clear, normal breath sounds, no respiratory distress, no accessory muscle use Cardiovascular: regular rate, rhythm, no edema, no gallop, no murmur Abdomen: normal bowel sounds, non tender, soft, no organomegaly Extremities: non-tender, normal inspection, no pedal edema, no calf tenderness Neurologic/Psychiatric: alert, normal mood/affect Skin: normal color, warm/dry, no rash Laboratory Results Last 24 Hours Test 07/02/17 07:47 White Blood Count 7.27 K/uL Red Blood Count 4.68 M/uL Hemoglobin 14.8 g/dL Hematocrit 42.5 % Mean Corpuscular Volume 90.8 fL Mean Corpuscular Hemoglobin 31.6 pg Mean Corpuscular Hemoglobin Concent 34.8 g/dl Platelet Count 118 K/uL Mean Platelet Volume 9.8 fL Neutrophils (%) (Auto) 75.9 % Lymphocytes (%) (Auto) 5.1 % Monocytes (%) (Auto) 15.0 % Eosinophils (%) (Auto) 3.4 % Basophils (%) (Auto) 0.3 % Neutrophils # (Auto) 5.52 K/uL Lymphocytes # (Auto) 0.37 K/uL Monocytes # (Auto) 1.09 K/uL Eosinophils # (Auto) 0.25 K/uL Basophils # (Auto) 0.02 K/uL RDW Standard Deviation 47.7 fL RDW Coefficient of Variation 14.2 % Immature Granulocyte % (Auto) 0.3 % Immature Granulocyte # (Auto) 0.02 K/uL Prothrombin Time 21.8 SECONDS Prothromb Time International Ratio 2.1 Sodium Level 137 mmol/L Potassium Level 3.7 mmol/L Chloride Level 101 mmol/L Carbon Dioxide Level 31 mmol/L Anion Gap 6.0 mmol/L Blood Urea Nitrogen 13 mg/dl Creatinine 0.66 mg/dl Est Creatinine Clear Calc Drug Dose 47.5 ml/min Estimated GFR () 92.1 Estimated GFR (Non- 79.4 BUN/Creatinine Ratio 18.9 Random Glucose 106 mg/dl Calcium Level 9.1 mg/dl Magnesium Level 2.3 mg/dl Total Bilirubin 1.2 mg/dl Aspartate Amino Transf (AST/SGOT) 19 U/L Alanine Aminotransferase (ALT/SGPT) 21 U/L Alkaline Phosphatase 69 U/L Total Protein 6.4 gm/dl Albumin 3.2 gm/dl Globulin 3.2 gm/dl Albumin/Globulin Ratio 1.0 Assessment and Plan Pt is an 86 year old female with history of coronary artery disease, paroxysmal atrial fibrillation on Coumadin, asthma, hypertension, dyslipidemia and systolic congestive heart failure. Patient had a mechanical fall and came to the ED with lower back pain. CT scan confirmed sacral fracture and a small retroperitoneal hematoma. Her INR was 1.3 and Coumadin was held, patient was admitted to medical floor Retroperitoneal hematoma status post fall/Sacral fracture status post mechanical fall, likely osteoporosis contributed to the fracture -stable hematoma on repeat pelvis CT the following day, H&H remains stable Orthopedic consult appreciated Recommended weightbearing as tolerated and using a walker x 3 months at least F/u in Ortho office in [address] Reggie Weber No orthopedic intervention is required at this point - started patient on vitamin D supplement 90320 units once weekly x 8 weeks -consider outpt evaluation for Prolia or Forteo for osteoporosis tx given h/o allergy to Fosamax -PT/OT recommending SNF placement -Continue holding Coumadin/Plavix today and if H/H remains stable, can restart likely tomorrow. INR 2.4 today but expect will drop tomorrow since being held CAD/Chronic systolic CHF-stable, no acute issues -continue home meds-Toprol XL, atorvastatin -holding Plavix for now HTN-uncontrolled BPs here could be secondary to pain -continue Toprol -IV hydralazine prn -may need to add amlodipine if not improving with pain control PAF on Coumadin, with PPM-in regular rhythm here, has atrial pacer, coumadin held for retroperitoneal hematoma as above. -continue Toprol, digoxin -restart coumadin tomorrow if H/H remains stable as above UTI POA, unclear if contributed to fall or not. With thickened bladder on pelvis CT. Proteus spp on Ur cx -treat with 3 day course of Augmentin SCD boot for DVT prophylaxis Dispo-to SNF after 3 midnight stay on Tuesday to [facility] FULL CODE
[2017-07-02] MEDS: OXYCODONE/ACETAMINOPHEN 5-325 TAB PO PRN (15:02)
[2017-07-02] MEDS: DIGOXIN 0.125 MG TAB PO SCH (15:03)
[2017-07-02 15:06] VITALS: BP 178/77; PULSE 69; TEMP 36.8; O2SAT 91
[2017-07-02] MEDS: AMOXICILLIN/CLAVULANATE TAB 875 MG TAB PO SCH (17:57)
[2017-07-02 21:36] VITALS: BP 134/76; PULSE 69
[2017-07-02] MEDS: TRAZODONE HCL 50 MG TAB PO SCH (21:38)
[2017-07-02 22:47] VITALS: BP 129/70; PULSE 79; TEMP 36.7; O2SAT 92
[2017-07-03] MEDS: TRAMADOL HCL 50 MG TAB PO PRN ×4 (03:21→23:49)
[2017-07-03 06:10] LABS: BASO % 0.1 %; BASO ABS # 0.01 K/uL (0-0.2); EOS ABS # 0.41 K/uL (0-0.5); HEMATOCRIT 42.4 % (37-47); HEMOGLOBIN 14.2 g/dL (12.0-16.0); IG# 0.02 K/uL (0.00-0.02); LYMPH % 8.2 %; LYMPH ABS # 0.56 K/uL (1.2-3.4); MEAN CELL VOLUME 91.6 fL (80-100); MEAN CORPUSCULAR HEMOGLOBIN 30.7 pg (25-34); MEAN CORPUSCULAR HGB CONC 33.5 g/dl (32-36); MEAN PLATELET VOLUME 9.9 fL (7.4-10.4); MONO % 18.9 %; MONO ABS # 1.29 K/uL (0.11-0.59); NEUT % 66.5 %; NEUT ABS # 4.53 K/uL (1.4-6.5); PLATELET COUNT 116 K/uL (130-400); RED CELL DISTRIBUTION WIDTH CV 14.4 % (11.5-14.5); RED CELL DISTRIBUTION WIDTH SD 48.6 fL (36.4-46.3); WHITE BLOOD COUNT 6.82 K/uL (4.8-10.8)
[2017-07-03 06:40] LABS: INR 1.5 (0.9-1.1)
[2017-07-03 07:10] VITALS: BP 155/81; PULSE 72; TEMP 37.2; O2SAT 92
[2017-07-03] MEDS ORDERED: FLUTICASONE PROPIONATE NA SPR 16 GM BTL NAE PRN (08:45)
[2017-07-03] MEDS: FLUTICASONE/SALMETEROL 250/50 (ADVAIR) 14 PUFF/1 INHALER INH SCH ×2 (09:27→20:33)
[2017-07-03] MEDS: AMOXICILLIN/CLAVULANATE TAB 875 MG TAB PO SCH ×2 (09:28→17:59)
[2017-07-03] MEDS: RANITIDINE HCL 150 MG TAB PO SCH ×2 (09:28→20:33)
[2017-07-03] MEDS: DOCUSATE SODIUM 100 MG CAP PO SCH ×2 (09:28→20:33)
[2017-07-03] MEDS: METOPROLOL SUCC 25MG EXT REL TAB PO SCH ×2 (09:28→20:34)
[2017-07-03] MEDS: MAGNESIUM OXIDE 400 MG TAB PO SCH (09:29)
[2017-07-03] MEDS: ATORVASTATIN 20 MG TAB PO SCH (09:29)
[2017-07-03] MEDS ORDERED: VITAMIN B COMPLEX TAB PO SCH (09:30)
[2017-07-03] MEDS: CHOLECALCIFEROL 1000 INTER.UNIT TAB PO SCH (09:34)
[2017-07-03] MEDS: POLYETHYLENE (MIRALAX) 17 GM PACK PO SCH (10:29)
[2017-07-03] MEDS: DOCUSATE SODIUM/SENNA 50/8.6MG TAB PO SCH ×2 (10:29→20:33)
[2017-07-03] MEDS ORDERED: SACCHAROMYCES BOUL (FLORASTOR) 250 MG CAP PO ONE (12:22)
[2017-07-03 14:55] VITALS: BP 131/76; PULSE 74; TEMP 37; O2SAT 92
[2017-07-03] MEDS: DIGOXIN 0.125 MG TAB PO SCH (15:52)
[2017-07-03 16:00] VITALS: O2SAT 92
[2017-07-03] MEDS ORDERED: WARFARIN SOD 5 MG TAB PO SCH (16:00)
--- NOTE | 2017-07-03 17:30 | Hospitalist Progress Note ---
Hospitalist Progress Note Date of Service Jul 03, 2017. Subjective Pt evaluation today including: conversation w/ patient, conversation w/ family (daughter at bedside) Pt having a lot of pain in sacral region especially with ambulating. Did have a BM just recently. Is ed[place] po. No N/V, no CP or SOB. Hgb remains stable All Other Systems: Reviewed and Negative Objective Vital Signs Date Time Temp Pulse Resp B/P (MAP) Pulse Ox O2 Delivery O2 Flow Rate FiO2 07/03/17 16:00 92 Room Air 07/03/17 15:52 76 07/03/17 14:55 37.0 74 18 131/76 (94) 92 Room Air 07/03/17 07:30 Room Air 07/03/17 07:10 37.2 72 16 155/81 (105) 92 Room Air 07/02/17 23:30 Room Air 07/02/17 22:47 36.7 79 16 129/70 (89) 92 Room Air 07/02/17 21:36 69 134/76 (95) 07/02/17 20:10 Room Air Physical Exam General Appearance: WD/WN, no apparent distress Eyes: normal inspection, sclerae normal ENT: hearing grossly normal Neck: trachea midline Respiratory/Chest: lungs clear, normal breath sounds, no respiratory distress, no accessory muscle use Cardiovascular: regular rate, rhythm, no edema, no gallop, no murmur Abdomen: normal bowel sounds, non tender, soft Extremities: normal inspection, no pedal edema, no calf tenderness Neurologic/Psychiatric: alert, normal mood/affect Skin: normal color, warm/dry, no rash Laboratory Results Last 24 Hours Test 07/03/17 05:43 White Blood Count 6.82 K/uL Red Blood Count 4.63 M/uL Hemoglobin 14.2 g/dL Hematocrit 42.4 % Mean Corpuscular Volume 91.6 fL Mean Corpuscular Hemoglobin 30.7 pg Mean Corpuscular Hemoglobin Concent 33.5 g/dl Platelet Count 116 K/uL Mean Platelet Volume 9.9 fL Neutrophils (%) (Auto) 66.5 % Lymphocytes (%) (Auto) 8.2 % Monocytes (%) (Auto) 18.9 % Eosinophils (%) (Auto) 6.0 % Basophils (%) (Auto) 0.1 % Neutrophils # (Auto) 4.53 K/uL Lymphocytes # (Auto) 0.56 K/uL Monocytes # (Auto) 1.29 K/uL Eosinophils # (Auto) 0.41 K/uL Basophils # (Auto) 0.01 K/uL RDW Standard Deviation 48.6 fL RDW Coefficient of Variation 14.4 % Immature Granulocyte % (Auto) 0.3 % Immature Granulocyte # (Auto) 0.02 K/uL Prothrombin Time 15.2 SECONDS Prothromb Time International Ratio 1.5 Assessment and Plan Pt is an 86 year old female with history of coronary artery disease, paroxysmal atrial fibrillation on Coumadin, asthma, hypertension, dyslipidemia and systolic congestive heart failure. Patient had a mechanical fall and came to the ED with lower back pain. CT scan confirmed left S2 ala sacral fracture and a small retroperitoneal hematoma. Her INR was 1.3 and Coumadin was held, patient was admitted to medical floor Retroperitoneal hematoma status post fall/Sacral fracture right S2 ala status post mechanical fall, likely osteoporosis contributed to the fracture -stable hematoma on repeat pelvis CT the following day, H&H continues to remain stable Orthopedic consult appreciated Recommended weightbearing as tolerated and using a walker x 3 months at least F/u in Ortho office in [address] Reggie Weber No orthopedic intervention is required at this point - started patient on vitamin D supplement 81949 units once weekly x 8 weeks -consider outpt evaluation for Prolia or Forteo for osteoporosis tx given h/o allergy to Fosamax -PT/OT recommending SNF placement -ok to restart Coumadin/Plavix today -follow INR CAD/Chronic systolic CHF-stable, no acute issues -continue home meds-Toprol XL, atorvastatin -restart Plavix HTN-uncontrolled BPs here could be secondary to pain, now improving -continue Toprol -IV hydralazine prn -may need to add amlodipine if not improving with pain control PAF on Coumadin, with PPM-in regular rhythm here, has atrial pacer, coumadin was held for retroperitoneal hematoma as above. -continue Toprol, digoxin -restarting coumadin as above UTI POA, unclear if contributed to fall or not. With thickened bladder on pelvis CT. Proteus spp on Ur cx -treat with 3 day course of Augmentin, today day #2/3 SCDs, Coumadin for DVT prophylaxis Dispo-to SNF after 3 midnight stay on Tuesday to [facility], will need litter transport arranged FULL CODE
[2017-07-03 20:30] VITALS: BP 152/79; PULSE 78
[2017-07-03] MEDS: TRAZODONE HCL 50 MG TAB PO SCH (21:41)
[2017-07-03 23:25] VITALS: BP 151/77; PULSE 77; TEMP 36.9; O2SAT 91
[2017-07-04] MEDS: TRAMADOL HCL 50 MG TAB PO PRN (06:21)
[2017-07-04 07:21] LABS: BASO % 0.6 %; BASO ABS # 0.03 K/uL (0-0.2); EOS % 6.6 %; EOS ABS # 0.35 K/uL (0-0.5); HEMATOCRIT 39.8 % (37-47); HEMOGLOBIN 13.7 g/dL (12.0-16.0); IG# 0.04 K/uL (0.00-0.02); LYMPH % 11.1 %; LYMPH ABS # 0.59 K/uL (1.2-3.4); MEAN CELL VOLUME 91.3 fL (80-100); MEAN CORPUSCULAR HEMOGLOBIN 31.4 pg (25-34); MEAN CORPUSCULAR HGB CONC 34.4 g/dl (32-36); MONO % 18.2 %; MONO ABS # 0.97 K/uL (0.11-0.59); NEUT % 62.7 %; NEUT ABS # 3.34 K/uL (1.4-6.5); PLATELET COUNT 122 K/uL (130-400); RED CELL DISTRIBUTION WIDTH CV 14.4 % (11.5-14.5); RED CELL DISTRIBUTION WIDTH SD 48.4 fL (36.4-46.3); WHITE BLOOD COUNT 5.32 K/uL (4.8-10.8)
[2017-07-04 07:32] LABS: INR 1.2 (0.9-1.1)
[2017-07-04] MEDS: DOCUSATE SODIUM/SENNA 50/8.6MG TAB PO SCH (07:46)
[2017-07-04] MEDS: OXYCODONE/ACETAMINOPHEN 5-325 TAB PO PRN (07:46)
[2017-07-04] MEDS: ATORVASTATIN 20 MG TAB PO SCH (07:46)
[2017-07-04] MEDS: MAGNESIUM OXIDE 400 MG TAB PO SCH (07:46)
[2017-07-04] MEDS: CHOLECALCIFEROL 1000 INTER.UNIT TAB PO SCH (07:46)
[2017-07-04] MEDS: POLYETHYLENE (MIRALAX) 17 GM PACK PO SCH (07:47)
[2017-07-04] MEDS: RANITIDINE HCL 150 MG TAB PO SCH (07:47)
[2017-07-04] MEDS: FLUTICASONE/SALMETEROL 250/50 (ADVAIR) 14 PUFF/1 INHALER INH SCH (07:47)
[2017-07-04] MEDS: AMOXICILLIN/CLAVULANATE TAB 875 MG TAB PO SCH (07:47)
[2017-07-04] MEDS: METOPROLOL SUCC 25MG EXT REL TAB PO SCH (07:47)
[2017-07-04] MEDS: DOCUSATE SODIUM 100 MG CAP PO SCH (07:48)
[2017-07-04 07:51] LABS: CALCIUM 8.7 mg/dl (8.5-10.1); CREATININE 0.51 mg/dl (0.60-1.20); POTASSIUM 3.9 mmol/L (3.5-5.1)
[2017-07-04 07:52] VITALS: BP 184/95; PULSE 68; TEMP 36.8; O2SAT 91
[2017-07-04] MEDS: ACETAMINOPHEN 325 MG TAB PO PRN (08:45)
[2017-07-04] MEDS ORDERED: CLOPIDOGREL BISULFATE 75 MG TAB PO SCH (09:00)
[2017-07-04] MEDS ORDERED: SACCHAROMYCES BOUL (FLORASTOR) 250 MG CAP PO SCH (09:00)
[2017-07-04] MEDS ORDERED: VITAMIN B COMPLEX TAB PO SCH (09:00)
[2017-07-04] MEDS ORDERED: AMOX1TAB43 PO (10:03)
[2017-07-04] MEDS ORDERED: SACC250C3 PO (10:03)
[2017-07-04] MEDS ORDERED: CLC100 PO (10:03)
[2017-07-04] MEDS ORDERED: ULT50X PO ×3 (10:03→10:26)
[2017-07-04] MEDS ORDERED: OXYC-57 PO ×3 (10:03→10:26)
[2017-07-04] MEDS ORDERED: ACET-1047 PO (10:03)
[2017-07-04] MEDS ORDERED: ERGO500011 PO (10:03)
--- NOTE | 2017-07-04 10:14 | Clinical Documentation Query ---
CLINICAL DOCUMENTATION QUERY Dr. ARROYO, In your clinical opinion is this patient being managed for: ( ) Metabolic encephalopathy ( ) Not Agree ( ) Other explanation of clinical findings (Please Explain) ( ) Unable to determine (Please Define) ( ) Need to Discuss The medical record reflects the following clinical findings, treatment, and risk factors. Clinical Indicators: 87 yo female presenting after a fall. Subsequently diagnosed with a UTI. Social work and nursing documentation indicating pt presented with some confusion early in hospital stay. Treatment: IV fluids, augmentin Risk Factors: UTI Please clarify and document your clinical opinion in the progress notes and discharge summary. Terms such as "probable", "suspected", "likely", "questionable", "possible", or "still to be ruled out" are acceptable. IF IN AGREEMENT, YOU MUST DOCUMENT ABOVE DIAGNOSTIC STATEMENT IN DAILY PROGRESS NOTES AND DISCHARGE SUMMARY. This document is not part of the patient's record. Thank You, Arleth Altman RN [phone]
[2017-07-04 10:30] VITALS: BP 122/70
[2017-07-04] MEDS ORDERED: AMLODIPINE BESYLATE 5 MG TAB PO ONE (10:38)
[2017-07-04] MEDS ORDERED: LIDODERM (LIDOCAINE) PATCH 5% TD ONE (10:38)
--- NOTE | 2017-07-04 10:38 | Discharge Instructions ---
Discharge Instructions Date of Service Jul 04, 2017. Admission Reason for Admission: Retroperitoneal Hemorrhage. Sacral Fracture,Closed Discharge Discharge Diagnosis / Problem: Closed Sacral Fx with Retroperitoneal Hemorrhage Discharge Goals Goal(s): Decrease discomfort, Improve function, Increase independence Activity Recommendations Activity Level: Assistance Required Therapies: Physical Therapy, Occupational Therapy Weightbearing Status: Left weightbearing (as tolerated), Right weightbearing ( as tolerated) . Additional Information Patient informed of condition: Yes Advance Directives: Yes DNR: No Level of Care: Skilled Communicable Disease: No Prognosis: Improving Instructions / Follow-Up Instructions / Follow-Up Pt is an 86 year old female with history of coronary artery disease, paroxysmal atrial fibrillation on Coumadin, asthma, hypertension, dyslipidemia and systolic congestive heart failure. Patient had a mechanical fall and came to the ED with lower back pain. CT scan confirmed left S2 ala sacral fracture and a small retroperitoneal hematoma.Her INR was 1.3 and Coumadin was held, patient was admitted to medical floor Retroperitoneal Hematoma with Sacral Fracture R S2 Ala S/P Mechanical Fall Complicated by Likely Osteoporosis Contribution: - Stable hematoma on repeat pelvic CT - H&H remains stable - will continue Coumadin and Plavix -- INR subtherapeutic and will need INR and CBC checked in 1-2 days and Coumadin adjusted accordingly - Orthopedics following - plan to utilize walker at least for 3 months but is weightbearing as tolerated -- F/U with orthopedics in 1 month - Dr. Weber - [place] [address] units once weekly for 7 more weeks - take this on Tuesday - Recommend outpatient follow-up for evaluation of Prolia or Forteo for osteoporosis due to allergy to Flomax - Can continue to use padded dressing on sacral region if necessary given hematoma CAD/Chronic Systolic CHF: STABLE - Continue Toprol XL and Atorvastatin as previously prescribed - Resumed Plavix HTN: BPs have been running high - possibly pain response - Continue medications as above - Will start low dose amlodipine for better BP control PAF on Coumadin, with PPM S/P Atrial Pacer - NSR currently - Toprol XL and Digoxin as previously prescribed - Trend INRs given subtherapeutic - Continue Coumadin, no need for bridge therapy as she is in NSR UTI POA - unclear if contributed to fall or not. With thickened bladder on pelvis CT. Proteus spp on Ur cx - Needs last dose of Augmentin tonight on 07/04 and will complete course Disposition: - Recommend INR and CBC check in 1-2 days - F/U with PCP in 5-7 days if possible Current Hospital Diet Patient's current hospital diet: AHA Diet (Heart Healthy) Discharge Diet Recommended Diet: AHA Diet (Heart Healthy) Procedures Procedures Performed: CT Pelvis x [address] Cervical spine CT Head Pending Studies Studies pending at discharge: no Physician Orders On Transfer Special Precautions: Fall risk Vital Signs: Routine Weigh: Routine Medical Emergencies . Who to Call and When: Medical Emergencies: If at any time you feel your situation is an emergency, please call 911 immediately. . Non-Emergent Contact Non-Emergency issues call your: Primary Care Provider Call Non-Emergent contact if: you have a fever, your pain is concerning you, you have any medication questions . . "Provider Documentation" section prepared by Eboni Rivera. . Core Measure Problem Core Measures: None [place] Drug Monitoring Program Search Results: patient reviewed within database, no issues identified
[2017-07-04 10:39] VITALS: BP 122/70; PULSE 68; TEMP 36.8; O2SAT 91
[2017-07-04] MEDS ORDERED: LDDP5 TD (10:41)
[2017-07-04] MEDS ORDERED: NRV5 PO (10:41)
[2017-07-04] MEDS ORDERED: NURSING VERBAL MED ORDER ONE (12:30)
[2017-07-04] MEDS ORDERED: WARFARIN SOD 4 MG TAB PO SCH (16:00)
--- NOTE | 2017-07-04 23:02 | Discharge Summary ---
Discharge Summary Date of Service Jul 04, 2017. Discharge Summary Admission Date: Jul 01, 2017 at 14:14 Discharge Date: Jul 04, 2017 Discharge Disposition: custodial facility Principal Diagnosis: Retroperitoneal Hematoma and Non-Displaced Sacral Fx Problems/Secondary Diagnoses: UTI 1) CAD - ant AR 2009 - 95% LAD stenosis prior to cath - may have had an additional AR - refused further catheterization per cardiology records 2) Chronic systolic CHF - EF 35% echo 2015 3) Paroxysmal AF on half-way anticoagulation 4) Atrial pacer 5) Multiple near-syncopal episodes and chronic vertigo 6) HPL 7) HTN 8) Asthma 9) Depression 10) History of PE 11) GERD 12) 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 This extends into the right sacral ala no fracture or dislocation within the bilateral hips. Small amount of presacral/retroperitoneal hemorrhage adjacent to the right sacral fracture. This measures up to 1.2 cm in thickness. IMPRESSION: Nondisplaced sacral fracture as described above with a small amount of right presacral/retroperitoneal hemorrhage. CT SCAN OF THE PELVIS WITHOUT IV CONTRAST FINDINGS: The skeletal structures are osteopenic. Again seen is a nondistracted fracture of S2 which also involves the right sacral ala. No new fracture is seen. The remainder of the bony pelvis and the proximal femora appear maintained. Lumbosacral spondylosis is partially imaged. There is trace presacral/retroperitoneal hemorrhage identified, not significantly changed from previous. There is advanced atherosclerotic calcification of the visualized abdominal aorta and the iliac vessels. No intramuscular hematoma is suggested within the psoas muscles. The bladder wall appears circumferentially thickened. The uterus and adnexa are normal as visualized. The cervix appears enlarged, similar to previous. There is evidence of pelvic floor prolapse. No pelvic sidewall, inguinal, or iliac chain adenopathy is seen. The visualized bowel loops are normal in caliber. IMPRESSION: 1. Unchanged appearance of a nondistracted right sacral fracture as above. 2. Trace presacral/retroperitoneal blood is unchanged from previous. No enlarging hematoma is identified. 3. Mild circumferential bladder wall thickening is suggested. Correlation with urinalysis will be required. LUMBAR SPINE WITHOUT FINDINGS: Moderate L3 compression fracture is unchanged. Grade I anterolisthesis of L4 and L5 is unchanged. There is no acute lumbar spine fracture. There is moderate multilevel degenerative disc disease and facet arthrosis. A right sacral ala fracture is partially imaged on this exam. This is better depicted on the CT of the pelvis. There is an associated presacral hematoma. Paravertebral soft tissues are otherwise unremarkable. IMPRESSION: 1. Acute right sacral ala fracture which is better depicted on the CT of the pelvis. Associated presacral hematoma. 2. No acute lumbar spine fracture. 3. Old L3 compression fracture. Consultations: 1. Orthopedics 2. PT/OT Medication Reconciliation New Medications: Acetaminophen (Mapap) 325 Mg Tab 650 MG PO Q4H PRN for Pain or Fever for 14 Days, #112 TAB Amlodipine Besylate (Amlodipine Besylate) 5 Mg Tab 5 MG PO QAM for 14 Days, #14 TAB Amoxicillin & Pot Clavulanate (Amoxicillin/Clavulanate P) 1 Tab Tab 875 MG PO BIDM, #1 TAB Take last dose tonight on 07/04. Docusate Sodium (Docusate Sodium) 100 Mg Cap 100 MG PO BID for 14 Days, #28 CAP Ergocalciferol (Vitamin D 83984 Unit) 50,000 Unit Cap 82910 INTERUNIT PO Q7D, #7 CAP Take on Sundays Lidocaine (Lidocaine) 1 Patch Tdsy 1 PATCH TD QAM for 14 Days, #14 PATCH Oxycodone/Acetaminophen 5MG/325MG (Percocet 5MG/325MG) Tab 1 TAB PO Q4H PRN for Pain for 3 Days, #10 TAB For severe pain. Saccharomyces Boulardii (Florastor) 250 Mg Cap 250 MG PO DAILY for 7 Days, #7 CAP Tramadol HCl (Tramadol HCl) 50 Mg Tab 50 MG PO Q6H PRN for Pain for 3 Days, #12 TAB For moderate pain. Continued Medications: Albuterol Hfa (Ventolin Hfa) 200 Puffs/33021 Mcg Aers 2 PUFFS INH Q6H PRN for SOB/Wheezing, #1 INHALER Atorvastatin (Lipitor) 20 Mg Tab 20 MG PO QAM B-Complex Vitamins (Vitamin B Complex) 1 Tab Tab 50 MG PO QAM Cholecalciferol (Vitamin D3) 2,000 Unit Tab 2000 UNITS PO DAILY for 90 Days, TAB 3 Refills Clopidogrel Bisulfate (Plavix) 75 Mg Tab 75 MG PO QAM Digoxin (Digox) 125 Mcg Tab 125 MCG PO QAM Fluticasone Prop/Salmeterol (Advair Diskus 250/50 60 Dose) 1 Ea Aerp 1 PUFF INH BID, INHALER Fluticasone Propionate (Nasal) (Flonase Allergy Relief) 50 Mcg/Act Spr 1 SPRAY DWIGHT DAILY PRN for Seasonal Allergies Guaifenesin (Guaifenesin) Unknown Strength Syp 10 ML PO Q4H PRN for Cough Magnesium Oxide (Mag-Ox) 400 Mg Tab 400 MG PO QAM, TAB Melatonin (Melatonin Maximum Strengt) 5 Mg Tab 5 MG PO HS, TAB 1 Refill Metoprolol Succ (Toprol Xl) (Toprol-Xl) 25 Mg Tabcr 25 MG PO BID, #30 TAB Nitroglycerin (Nitrostat) 0.4 Mg Sub 0.4 MG UT UD PRN for Chest Pain Phenazopyridine HCl (Pyridium) 200 Mg Tab 200 MG PO TID PRN for Frequency/Burning w/Urination, #6 TAB Ranitidine (Zantac) 150 Mg Tab 150 MG PO BID, TAB Sennosides (Senna) 8.6 Mg Cap 8.6 MG PO 3XWK TUESDAY, TUESDAY, TUESDAY Warfarin Sod (Coumadin) 5 Mg Tab 5 MG PO 4XWK MORNINGS-TUESDAY, TUESDAY, TUESDAY, TUESDAY Warfarin Sod (Jantoven) 4 Mg Tab 4 MG PO 3XWK, TAB MORNINGS-TUESDAY, TUESDAY, TUESDAY Discharge Exam General/Constitutional: Denies fever/chills, fatigue, weakness ENT: Denies visual changes, nasal drainage, hearing loss, sore throat, trouble swallowing Cardiovascular: Denies chest pain, palpitations, edema Respiratory: Denies cough, sputum, SOB, wheezing, orthopnea GI: Denies nausea, vomiting, abdominal pain, constipation, diarrhea, melena/ hematochezia : Denies dysuria, frequency, hematuria Musculoskeletal: + low back pain; Denies swelling Neurologic: Denies dizziness/lightheadedness, numbness/tingling, weakness, saddle paresthesias, loss of bowel/bladder Hematologic/Lymphatic: Denies bleeding/clotting abnormalities Skin: Denies rash, itch, new skin changes, easy bruising General Appearance: WDWN in NAD HEENT: Head is normocephalic/atraumatic Neck: Supple; Trachea midline; Neg JVD; Neg lymphadenopathy Heart: RRR with no M/G/R Lungs: CTA in all lung parekh bilaterally; Respirations unlabored; Neg accessory muscle use Abdomen: Soft, non-tender, non-distended; Positive BS x 4 quadrants Extremities: Neg cyanosis or edema Neurological: Speech clear; Gross motor/sensory function intact; Neg focal neurologic deficits; gait is slow but steady no witness imbalances Psychiatric: Appropriate mood/affect Skin: Normal Color; Warm/Dry; Neg rashes, ecchymosis, lacerations/ulcerations Hospital Course ADMISSION: 86 y/o F Hx systolic CHF, CAD, PAF, asthma, HTN, HPL. Pt is anticoagulated with Coumadin. She sustained a mechanical fall today and could not ambulate following. Trauma was primarily to her lower back. She arrived on the ER where a lumbar and pelvic CT confirmed a sacral fracture in addition to a small retroperitoneal hemorrhage. Her INR is fortunately subtherapeutic. She denies any symptoms preceding her fall such as palpitations, CP, SOB or lightheadedness. She does suffer from chronic vertigo. She may have c/o CP briefly after falling. HOSPITAL COURSE: Ms. Cohen was admitted for a mechanical fall resulting in a non-displaced sacral fx S2 ala and retroperitoneal hematoma. Likely osteoporosis playing a role in injury. No surgical intervention at this point from orthopedics. Recommended to ambulate with walker for at least 3 months and can weightbear as tolerated. Hematoma on F/U imaging is stable and Plavix and Coumadin resumed. She was started on Vitamin D 69073 units weekly x 8 weeks total. Could consider evaluation for possible Prolia or Forteo given allergy to Fosamax. Home medications continued as previously prescribed. Due to significant hypertension she was also started on Amlodipine 5 mg daily. She was also found to have a UTI which may have possibly contributed to a fall and she will complete a course of Augmentin. She required a 3 midnight stay to qualify for SNF and she was discharged to [facility] for rehab. Total Time Spent: Greater than 30 minutes This includes examination of the patient, discharge planning, medication reconciliation, and communication with other providers. Discharge Instructions Please refer to the electronic Patient Visit Report (Discharge Instructions) for additional information. Additional Copies To Alfreda Montalvo; Gray Keller M.D. Reviewed: Pt Seen/Exam by Me History Physician Distribution Analyst Supervision Note: I interviewed and examined the patient. Discussed with BRENDAN Rivera and agree with findings and plan as documented in the note. Any exceptions or clarifications are listed here: Pt having much improvement in her pain today. Had a BM today as well. Is ready for discharge. Hgb remains stable. Vitals reviewed NAD, sitting in chair RRR no mgr CTAB no wcr Abd +BS soft NT ND Ext no edema Pt is an 86 year old female with history of coronary artery disease, paroxysmal atrial fibrillation on Coumadin, asthma, hypertension, dyslipidemia and systolic congestive heart failure. Patient had a mechanical fall and came to the ED with lower back pain. CT scan confirmed left S2 ala sacral fracture and a small retroperitoneal hematoma. Her INR was 1.3 and Coumadin was held, patient was admitted to medical floor Retroperitoneal hematoma status post fall/Sacral fracture right S2 ala status post mechanical fall, likely osteoporosis contributed to the fracture -stable hematoma on repeat pelvis CT the following day, H&H continues to remain stable Orthopedic consult appreciated Recommended weightbearing as tolerated and using a walker x 3 months at least F/u in Ortho office in [address] Reggie Weber No orthopedic intervention is required at this point - started patient on vitamin D supplement 65684 units once weekly x 8 weeks -consider outpt evaluation for Prolia or Forteo for osteoporosis tx given h/o allergy to Fosamax -PT/OT recommending SNF placement - restarted Coumadin/Plavix and needs f/u INR and CBC in 2-3 days CAD/Chronic systolic CHF-stable, no acute issues -continue home meds-Toprol XL, atorvastatin -restart Plavix HTN-uncontrolled BPs here could be secondary to pain, now improving -continue Toprol -IV hydralazine prn -may need to add amlodipine if not improving with pain control PAF on Coumadin, with PPM-in regular rhythm here, has atrial pacer, coumadin was held for retroperitoneal hematoma as above. -continue Toprol, digoxin -restarted coumadin as above UTI POA, unclear if contributed to fall or not. With thickened bladder on pelvis CT. Proteus spp on Ur cx -treat with 3 day course of Augmentin, today day #3 [facility] Documented By: Helene Larsen
[2017-07-05] MEDS ORDERED: AMLODIPINE BESYLATE 5 MG TAB PO SCH (09:00)
[2017-07-05] MEDS ORDERED: LIDODERM (LIDOCAINE) PATCH 5% TD SCH (09:00)
== END 2017-07-04 14:44 | DRG 543 ==
LOC: EDBD 12:20 → C.EDB 12:21 → C.MSW 15:55 → EDBEDREQ 16:02 → ENRESERV 16:51 → OBSVTOIN 07-01 14:14
PROVIDERS: ADMIT Internal Medicine; ATTEND Family Medicine
DX: M84.48XA Pathological fracture, other site, initial encounter for fracture (principal); I50.20 Unspecified systolic (congestive) heart failure; S36.892A Contusion of other intra-abdominal organs, initial encounter; N39.0 Urinary tract infection, site not specified; I25.10 Atherosclerotic heart disease of native coronary artery without angina pectoris; I48.0 Paroxysmal atrial fibrillation; J45.909 Unspecified asthma, uncomplicated; I10 Essential (primary) hypertension; Z83.3 Family history of diabetes mellitus; Z82.49 Family history of ischemic heart disease and other diseases of the circulatory system; I25.2 Old myocardial infarction; N18.3 Chronic kidney disease, stage 3 (moderate)

== ENCOUNTER → 2017-07-08 | Outpatient (CLI) | payer OTHER ==
[~2017-07-08] MED LIST changes: +ACET-1047 PO; +AMOX1TAB43 PO; +CLC100 PO; +ERGO500011 PO; +GUAI100S16 PO; +LDDP5 TD; +MELATAB2 PO; +NRV5 PO; +OXYC-57 PO; +SACC250C3 PO; -TRAZ50TA35 PO; +ULT50X PO
[2017-07-08 08:45] LABS: HEMATOCRIT 42.9 % (37-47); HEMOGLOBIN 14.8 g/dL (12.0-16.0); MEAN CELL VOLUME 89.6 fL (80-100); MEAN CORPUSCULAR HEMOGLOBIN 30.9 pg (25-34); MEAN CORPUSCULAR HGB CONC 34.5 g/dl (32-36); MEAN PLATELET VOLUME 9.7 fL (7.4-10.4); PLATELET COUNT 198 K/uL (130-400); RED CELL DISTRIBUTION WIDTH CV 13.8 % (11.5-14.5); RED CELL DISTRIBUTION WIDTH SD 45.6 fL (36.4-46.3); WHITE BLOOD COUNT 6.07 K/uL (4.8-10.8)
[2017-07-08 08:53] LABS: INR 2.7 (0.9-1.1)
== END | disposition home or self-care (01) ==
LOC: C.LABFOXAE 07:39
PROVIDERS: ATTEND Internal Medicine
DX: D64.9 Anemia, unspecified (principal); I48.2 Chronic atrial fibrillation

== ENCOUNTER → 2017-07-11 | Outpatient (CLI) | payer OTHER ==
[2017-07-11 10:17] LABS: INR 3.4 (0.9-1.1)
== END | disposition home or self-care (01) ==
LOC: C.LABFOXAE 09:27
PROVIDERS: ATTEND Internal Medicine
DX: D64.9 Anemia, unspecified (principal); I48.2 Chronic atrial fibrillation

== ENCOUNTER → 2017-07-12 | Outpatient (CLI) | payer OTHER ==
[~2017-07-12] MED LIST changes: +RANI150T85 PO; -ZNTT/150 PO
[2017-07-12 09:16] LABS: INR 3.4 (0.9-1.1)
== END | disposition home or self-care (01) ==
LOC: C.LABFOXAE 08:52
PROVIDERS: ATTEND Internal Medicine
DX: D64.9 Anemia, unspecified (principal); I48.2 Chronic atrial fibrillation

== ENCOUNTER → 2017-07-12 | Outpatient (CLI) | payer OTHER ==
[2017-07-12 15:47] LABS: HEMATOCRIT 43.2 % (37-47); HEMOGLOBIN 14.8 g/dL (12.0-16.0); MEAN CELL VOLUME 90.2 fL (80-100); MEAN CORPUSCULAR HEMOGLOBIN 30.9 pg (25-34); MEAN CORPUSCULAR HGB CONC 34.3 g/dl (32-36); MEAN PLATELET VOLUME 9.1 fL (7.4-10.4); PLATELET COUNT 290 K/uL (130-400); RED CELL DISTRIBUTION WIDTH CV 14.1 % (11.5-14.5); RED CELL DISTRIBUTION WIDTH SD 46.4 fL (36.4-46.3); WHITE BLOOD COUNT 7.79 K/uL (4.8-10.8)
[2017-07-12 15:59] LABS: BLOOD UREA NITROGEN 18 mg/dl (7-18); CALCIUM 9.1 mg/dl (8.5-10.1); CARBON DIOXIDE 27 mmol/L (21-32); CREATININE 0.68 mg/dl (0.60-1.20); GLUCOSE 92 mg/dl (70-99); POTASSIUM 4.3 mmol/L (3.5-5.1); SODIUM 132 mmol/L (136-145)
== END | disposition home or self-care (01) ==
LOC: C.LABFOXAE 15:19
PROVIDERS: ATTEND Internal Medicine
DX: I10 Essential (primary) hypertension (principal)

== ENCOUNTER → 2017-07-14 | Outpatient (CLI) | payer OTHER ==
[2017-07-14 08:30] LABS: INR 1.6 (0.9-1.1)
== END | disposition home or self-care (01) ==
LOC: C.LABFOXAE 08:01
PROVIDERS: ATTEND Internal Medicine
DX: I48.2 Chronic atrial fibrillation (principal); D64.9 Anemia, unspecified

== ENCOUNTER → 2017-07-25 | Outpatient (CLI) | payer OTHER ==
[2017-07-25 08:44] LABS: INR 3.4 (0.9-1.1)
== END | disposition home or self-care (01) ==
LOC: C.LABFOXAE 07:50
PROVIDERS: ATTEND Internal Medicine Hospice and Palliative Medicine
DX: I48.2 Chronic atrial fibrillation (principal)

== ENCOUNTER → 2017-07-28 | Outpatient (CLI) | payer OTHER ==
[2017-07-28 08:31] LABS: INR 2.1 (0.9-1.1)
== END ==
LOC: C.LABFOXAE 07:54
PROVIDERS: ATTEND Internal Medicine
DX: I48.2 Chronic atrial fibrillation (principal)

== ENCOUNTER → 2017-08-01 | Outpatient (CLI) | payer OTHER ==
[2017-08-01 08:44] LABS: INR 1.8 (0.9-1.1)
== END | disposition home or self-care (01) ==
LOC: C.LABFOXDH 07:51
PROVIDERS: ATTEND Nurse Practitioner Family
DX: R79.1 Abnormal coagulation profile (principal)

== ENCOUNTER → 2017-08-04 | Outpatient (CLI) | payer OTHER ==
[2017-08-04 09:56] LABS: INR 2.1 (0.9-1.1)
== END | disposition home or self-care (01) ==
LOC: C.LABFOXDH 09:21
PROVIDERS: ATTEND Internal Medicine
DX: R79.1 Abnormal coagulation profile (principal)

== ENCOUNTER → 2017-08-11 | Outpatient (CLI) | payer OTHER ==
[2017-08-11 10:08] LABS: INR 1.7 (0.9-1.1)
== END | disposition home or self-care (01) ==
LOC: C.LABFOXDH 07:47
PROVIDERS: ATTEND Nurse Practitioner Family
DX: I48.0 Paroxysmal atrial fibrillation (principal)

== ENCOUNTER → 2017-08-18 | Outpatient (CLI) | payer OTHER ==
[2017-08-18 09:16] LABS: INR 1.9 (0.9-1.1)
== END | disposition home or self-care (01) ==
LOC: C.LABFOXDH 08:47
PROVIDERS: ATTEND Internal Medicine Hospice and Palliative Medicine
DX: I48.0 Paroxysmal atrial fibrillation (principal); M80.00XA Age-related osteoporosis with current pathological fracture, unspecified site, initial encounter for fracture

== ENCOUNTER → 2017-08-22 | Outpatient (CLI) | payer OTHER | LOC: C.MAMM 09:51 | PROVIDERS: ATTEND Internal Medicine | DX: M81.0 Age-related osteoporosis without current pathological fracture (principal) ==

== ENCOUNTER → 2017-08-29 | Outpatient (CLI) | payer OTHER ==
[2017-08-29 09:08] LABS: INR 1.3 (0.9-1.1)
== END ==
LOC: C.LABFOXDH 08:44
PROVIDERS: ATTEND Internal Medicine
DX: I48.0 Paroxysmal atrial fibrillation (principal)

== ENCOUNTER → 2017-09-05 | Outpatient (CLI) | payer OTHER ==
[2017-09-05 11:52] LABS: INR 1.4 (0.9-1.1)
== END | disposition home or self-care (01) ==
LOC: C.LABFOXDH 09:43
PROVIDERS: ATTEND Internal Medicine Hospice and Palliative Medicine
DX: I48.0 Paroxysmal atrial fibrillation (principal)

== ENCOUNTER → 2017-09-07 | Outpatient (CLI) | payer OTHER ==
[~2017-09-07] MED LIST changes: -GUAI100S16 PO; +GUAI100S66 PO
[2017-09-07 10:05] LABS: INR 1.1 (0.9-1.1)
== END | disposition home or self-care (01) ==
LOC: C.LABFOXDH 08:38
PROVIDERS: ATTEND Internal Medicine
DX: R79.1 Abnormal coagulation profile (principal)

== ENCOUNTER → 2017-09-15 | Outpatient (CLI) | payer OTHER ==
[2017-09-15 10:07] LABS: INR 1.4 (0.9-1.1)
== END | disposition home or self-care (01) ==
LOC: C.LABFOXDH 09:01
PROVIDERS: ATTEND Internal Medicine Hospice and Palliative Medicine
DX: I48.91 Unspecified atrial fibrillation (principal)

== ENCOUNTER → 2017-09-15 | Outpatient (CLI) | payer OTHER | END | disposition home or self-care (01) | LOC: C.PAPS 09:41 | PROVIDERS: ATTEND Obstetrics & Gynecology | DX: N81.4 Uterovaginal prolapse, unspecified (principal) ==

== ENCOUNTER → 2017-09-22 | Outpatient (CLI) | payer OTHER ==
[2017-09-22 09:42] LABS: INR 1.7 (0.9-1.1)
== END | disposition home or self-care (01) ==
LOC: C.LABFOXDH 09:23
PROVIDERS: ATTEND Internal Medicine
DX: I48.91 Unspecified atrial fibrillation (principal)

== ENCOUNTER → 2017-09-29 | Outpatient (CLI) | payer OTHER ==
[2017-09-29 09:04] LABS: INR 1.7 (0.9-1.1)
== END | disposition home or self-care (01) ==
LOC: C.LABFOXDH 08:43
PROVIDERS: ATTEND Internal Medicine Hospice and Palliative Medicine
DX: I48.91 Unspecified atrial fibrillation (principal)

== ENCOUNTER → 2017-10-06 | Outpatient (CLI) | payer OTHER ==
[~2017-10-06] MED LIST changes: -PHEN-876 PO
== END | disposition home or self-care (01) ==
LOC: C.LABFOXDH 08:19
PROVIDERS: ATTEND Nurse Practitioner Family
DX: I48.91 Unspecified atrial fibrillation (principal)

== ENCOUNTER → 2017-10-17 | Outpatient (CLI) | payer OTHER ==
[2017-10-17 09:46] LABS: INR 1.8 (0.9-1.1)
== END | disposition home or self-care (01) ==
LOC: C.LABFOXDH 08:51
PROVIDERS: ATTEND Internal Medicine
DX: I48.0 Paroxysmal atrial fibrillation (principal)

== ENCOUNTER → 2017-10-24 | Outpatient (CLI) | payer OTHER ==
[2017-10-24 09:19] LABS: INR 2.2 (0.9-1.1)
== END ==
LOC: C.LABFOXDH 08:48
PROVIDERS: ATTEND Internal Medicine
DX: I48.2 Chronic atrial fibrillation (principal)

== ENCOUNTER → 2018-01-10 | Outpatient (CLI) | payer OTHER | END | disposition home or self-care (01) | LOC: C.LABFOXDH 08:00 | PROVIDERS: ATTEND Internal Medicine | DX: I48.0 Paroxysmal atrial fibrillation (principal) ==

== ENCOUNTER 2019-05-08 03:54 | Inpatient (IN) ==
[2019-05-08] MEDS ORDERED: SODIUM CHLORIDE 0.9% 1000ML 1,000 ML IV SCH (04:30)
[2019-05-08] MEDS ORDERED: fentaNYL citrate 100 MCG/2 ML VIAL IV ONE (04:37)
[2019-05-08 04:40] LABS: Eosinophils # (auto) 0.05 K/uL (0-0.5); Eosinophils % (auto) 1.2 %; Hematocrit (blood only) 45.8 % (37-47); Hemoglobin 15.3 g/dL (12.0-16.0); Immature Granulocytes # (auto) 0.04 K/uL (0.00-0.02); Lymphocytes # (auto) 1.07 K/uL (1.2-3.4); Lymphocytes % (auto) 25.5 %; Mean Corpuscular Hemoglobin 31.1 pg (25-34); Mean Corpuscular Hgb Conc 33.4 g/dL (32-36); Mean Corpuscular Volume 93.1 fL (80-100); Mean Platelet Volume 9.6 fL (7.4-10.4); Monocytes # (auto) 0.47 K/uL (0.11-0.59); Monocytes % (auto) 11.2 %; Neutrophils # (auto) 2.56 K/uL (1.4-6.5); Neutrophils % (auto) 61.1 %; Platelet Count 173 K/uL (130-400); RDW Coefficient of Variation 13.5 % (11.5-14.5); RDW Standard Deviation 46.1 fL (36.4-46.3); Red Blood Count 4.92 M/uL (4.2-5.4); White Blood Count 4.19 K/uL (4.8-10.8)
[2019-05-08 04:51] LABS: Partial Thromboplastin Ratio 0.9; Partial Thromboplastin Time 24.7 Seconds (21.0-31.0); Prothrombin Time 10.6 Seconds (9.0-12.0)
[2019-05-08 04:59] LABS: BUN Creatinine Ratio 19.2 (10-20); Calcium 9.2 mg/dl (8.5-10.1); Creatinine Clr Calc Pharmacy 39.7 ml/min; Est GFR (African American) 80.6; Est GFR (Non-African American) 69.5; Potassium 3.9 mmol/L (3.5-5.1)
[2019-05-08 05:13] LABS: Appearance Urine Slightly Cloudy (Clear); Bilirubin Urine Negative (Negative); Blood Urine Negative (Negative); Color Urine Yellow; Glucose Urine UA Negative (Negative); Ketones Urine Negative (Negative); Leukocyte Esterase Urine Negative (Negative); Nitrite Urine Positive (Negative); Protein Urine Negative (Negative); Urobilinogen Urine Negative (Negative)
[2019-05-08 05:25] LABS: Bacteria Urine 2+ (Negative); Epithelial Cell Urine 0-5 /lpf (0-5); RBC Urine 0-4 /hpf (0-4)
[2019-05-08] MEDS ORDERED: LEVALBUTEROL HCL 0.63 MG/3 ML NEB INH PRN (05:38)
[2019-05-08] MEDS ORDERED: SIMETHICONE 80 MG CHEW PO PRN (05:38)
[2019-05-08] MEDS ORDERED: DICLOFENAC SOD 1% GEL 100 GM TUBE EXT PRN (05:38)
[2019-05-08] MEDS ORDERED: MECLIZINE HCL 25 MG TAB PO PRN (05:38)
[2019-05-08] MEDS ORDERED: bisacodyL 10 MG SUPP PR PRN (05:38)
[2019-05-08] MEDS ORDERED: ALBUTEROL HFA 8 GM INHALER INH PRN (05:38)
[2019-05-08] MEDS ORDERED: NITROGLYCERIN SL 0.4 MG/TAB TAB SL PRN (05:45)
--- NOTE | 2019-05-08 05:53 | History & Physical Report ---
Date of Service May 08, 2019 Assessment & Plan (1) Hip fracture, left: 88yo F PMH dementia, afib on eliquis, CAD s/p stent placement 2009, CHF (latest EF 35%), SSS s/p pacemaker placement, h/o PE (on eliquis), chronic vertigo with excess falls and near-syncopal events admitted for acute L hip fracture. L hip fracture -Received fentanyl in ER -Home tramadol and tylenol for pain, escalate in daytime prn -Ortho consulted, appreciate recs -Will keep NPO and hold eliquis/plavix for potential surgery; resume as deemed fit by day team -Will need PT/OT as appropriate; has not been ordered at this time -Head CT/Cervical spine CT reads pending CHF -Per previous documentation, most recent EF of 35% -No s/s of exacerbation -Continue home medications Afib/SSS -On eliquis; held currently as above -Currently rate controlled. -Pacemaker in situ CAD s/p stenting 2009 -Cont home meds Dyspnea -Chronic; cont home inhalers Dementia -Watch for symptoms of delirium while in hospital Code: DNR per foxtrini papers/living will Dispo: admit to [facility] DVTP: SCDs until plan for ppx determined (2) Congestive heart failure: (3) Atrial fibrillation: (4) Stented coronary artery: (5) Dyspnea: (6) CAD (coronary artery disease): (7) Atrial flutter with rapid ventricular response: (8) Weakness: (9) Pre-syncope: (10) Dementia: (11) Dysphagia: History of Present Illness Chief Complaint: L hip pain Primary Care Provider: Gray Keller MD 88yo F PMH dementia, afib on eliquis, CAD s/p stent placement 2009, CHF latest EF 35%, SSS s/p pacemaker placement, h/o PE, chronic vertigo with excess falls and near-syncopal events presents from [facility] after mechanical fall this morning. Patient unable to provide history, therefore information from [facility] and ER staff. Patient got up to use restroom this AM and reports she used her wheelchair/walker to get to the bathroom, but on her way fell from a standing position onto the ground/onto her L hip. Resulted in immediate L hip pain. Patient transported to ER where imaging confirmed a L hip fracture. Labwork otherwise grossly negative. Abnormal UA will be sent for culture. Allergies Allergy/AdvReac Type Severity Reaction Status Date / Time alendronate sodium Allergy Mild GI SYMPTOMS Verified 05/08/19 05:11 prednisone Allergy Unknown UNKOWN Verified 05/08/19 05:11 Home Medications Home Medications Medication Instructions Recorded Confirmed Type Lactobacillus acidophilus 1 tab PO DAILY 11/14/18 05/08/19 History acetaminophen [Tylenol] 650 mg PO TID PRN MDD 3g/24hr 11/14/18 05/08/19 History albuterol sulfate 2 inh INHALATION Q6H PRN 11/14/18 05/08/19 History apixaban [Eliquis] 2.5 mg PO BID 11/14/18 05/08/19 History atorvastatin 20 mg PO QPM 11/14/18 05/08/19 History bisacodyl [Dulcolax (bisacodyl)] 10 mg NV .Q48 PRN 11/14/18 05/08/19 History cholecalciferol (vitamin D3) 2,000 unit PO QAM 11/14/18 05/08/19 History [Vitamin D3] clopidogrel 75 mg PO QAM 11/14/18 05/08/19 History diclofenac sodium [Voltaren] 4 g TOPICAL BID PRN 11/14/18 05/08/19 History digoxin [Digox] 125 mcg PO QAM 11/14/18 05/08/19 History fluticasone propionate 2 spray INTRANASAL HS 11/14/18 05/08/19 History guaifenesin [Mucinex] 600 mg PO BID PRN 11/14/18 05/08/19 History levalbuterol HCl [Xopenex] 0.63 mg INHALATION QID PRN 11/14/18 05/08/19 History magnesium hydroxide [Milk of 30 ml PO .Q48H 11/14/18 05/08/19 History Magnesia] magnesium oxide 400 mg PO QPM 11/14/18 05/08/19 History melatonin 5 mg PO HS 11/14/18 05/08/19 History metoprolol tartrate 50 mg PO BID 11/14/18 05/08/19 History miscellaneous medical supply 11/14/18 03/06/19 History [Ocusoft Eyelid Cleansing Pads] [id number] 1,000 mg PO QAM 11/14/18 05/08/19 History [Airborne (lysine HCl)] [id number] 333 mg PO BID PRN 11/14/18 05/08/19 History [Airborne (ascorbate sodium)] nitroglycerin [Nitrostat] 0.4 mg SUBLINGUAL UD 11/14/18 05/08/19 History phenylephrine-witch susana 1 applic TOPICAL Q8H PRN 11/14/18 05/08/19 History [Preparation H(pe, witch susana)] ranitidine HCl 150 mg PO BID 11/14/18 05/08/19 History sennosides [senna] 8.6 mg PO 3XWK 11/14/18 05/08/19 History simethicone 80 mg PO TID PRN 11/14/18 05/08/19 History sodium chloride [Saline Nasal] 1 spray INTRANASAL Q6H PRN 11/14/18 05/08/19 History sodium phosphates [Fleet Enema] 118 ml NV Q72H 11/14/18 05/08/19 History wheat dextrin [Benefiber Sugar 3 g PO DAILY 11/14/18 05/08/19 History Free (dextrin)] witch susana [Tucks (witch susana)] 50 % TOPICAL Q8 PRN 11/14/18 05/08/19 History denosumab 60 mg/mL subcutaneous 60 mg SQ .COMPLEX ml 01/15/19 05/08/19 History syringe ascorbic acid (vitamin C) 500 mg 500 mg PO DAILY 01/29/19 05/08/19 History tablet amlodipine 2.5 mg tablet 2.5 mg PO DAILY 03/06/19 05/08/19 History Baby Shampoo 1 applic TOPICAL BID PRN 05/08/19 05/08/19 History fluticasone propion-salmeterol 1 inh INHALATION BID 05/08/19 05/08/19 History [Advair Diskus] hydrocortisone 1 applic TOPICAL BID PRN 05/08/19 05/08/19 History hydrocortisone 1 applic TOPICAL UD PRN MDD 14 05/08/19 05/08/19 History doses per month meclizine 25 mg PO TID PRN 05/08/19 05/08/19 History tramadol 25 mg PO Q4 PRN 05/08/19 05/08/19 History tramadol 25 mg PO QAM 05/08/19 05/08/19 History Past Med/Surg History Medical History Atrial fibrillation (Acute) CAD (coronary artery disease) (Acute) CAD (coronary artery disease) (Chronic) Congestive heart failure Dementia Heart attack (Resolved) Myocardial infarction (Acute) Pulmonary embolism (Resolved) Vertigo Vision disturbance (Chronic) Surgical History H/O cardiac catheterization (Resolved) H/O heart surgery H/O lumpectomy History of tonsillectomy Status post breast lumpectomy Status post placement of cardiac pacemaker Stented coronary artery (Chronic) Family History Father Diabetes Brother Stroke Father Diabetes Brother Stroke syndrome Social History Preferred Language: Upper Sorbian Communication Ability: Effective Jammer [place]er Required: No Beliefs That Will Affect Care: None marital status: / Current Living Situation: Personal Care Facility Feels Safe at Home: Yes Safety Concerns: Feels Safe At This Time Smoking Status: Never smoker Do You Dip or Chew Tobacco: No ; Hx Alcohol Use: No Hx Substance Use: No Review of Systems Review of Systems: Unobtainable due to cognitive status Physical Exam Physical Exam: General: Chronically ill-appearing female in no significant distress. HEENT: No scleral icterus, PERRLA, neck supple. Atraumatic. Cardiovascular: Regular rate and irregularly irregular rhythm, no extra sounds. Pulmonary: Clear to auscultation bilaterally, normal work of breathing. Abdomen: Soft, nontender, nondistended, positive bowel sounds. Musculoskeletal: Atraumatic, no peripheral edema. Pain with movement of L leg. Neurologic: Patient awake alert and oriented x self and place, No other neurological deficits noted. Skin: Warm, dry, no rash. Abrasion on L elbow noted Results & Data Vital Signs (Past 12 Hours) Vital Signs Temp Pulse Resp BP Pulse Ox 05/08/19 05:14 80 19 188/91 H 93 05/08/19 04:30 68 18 180/91 H 95 05/08/19 04:02 98.2 F 66 14 183/96 H 95 05/08/19 04:00 67 20 182/94 H 94 Laboratory Results 05/08/19 05/08/19 05/08/19 Range/Units 04:55 04:47 04:28 WBC (4.8-10.8) K/uL RBC (4.2-5.4) M/uL Hgb (12.0-16.0) g/dL Hct (37-47) % MCV (80-100) fL MCH (25-34) pg MCHC (32-36) g/dL RDW Std Deviation (36.4-46.3) fL RDW Coeff of Oleg (11.5-14.5) % Plt Count (130-400) K/uL MPV (7.4-10.4) fL Immature Gran % (Auto) % Neut % (Auto) % Lymph % (Auto) % [place] % (Auto) % Eos % (Auto) % Baso % (Auto) % Immature Gran # (Auto) (0.00-0.02) K/uL Neut # (Auto) (1.4-6.5) K/uL Lymph # (Auto) (1.2-3.4) K/uL [place] # (Auto) (0.11-0.59) K/uL Eos # (Auto) (0-0.5) K/uL Baso # (Auto) (0-0.2) K/uL PT (9.0-12.0) Seconds INR (0.9-1.1) APTT (21.0-31.0) Seconds PTT Ratio Sodium 137 (136-145) mmol/L Potassium 3.9 (3.5-5.1) mmol/L Chloride 103 (98-107) mmol/L Carbon Dioxide 31 (21-32) mmol/L Anion Gap 3.0 (3-11) BUN 15 (7-18) mg/dl Creatinine 0.76 (0.6-1.2) mg/dl Est Cr Clr Drug Dosing 39.7 ml/min Est GFR ( Amer) 80.6 Est GFR (Non-Af Amer) 69.5 BUN/Creatinine Ratio 19.2 (10-20) Glucose 107 H (70-99) mg/dl Calcium 9.2 (8.5-10.1) mg/dl Urine Color Yellow Urine Appearance Slightly Cloudy (Clear) Urine pH 8.0 H (4.5-7.5) Ur Specific [place] 1.010 (1.000-1.030) Urine Protein Negative (Negative) Urine Glucose (UA) Negative (Negative) Urine Ketones Negative (Negative) Urine Blood Negative (Negative) Urine Nitrite Positive A (Negative) Urine Bilirubin Negative (Negative) Urine Urobilinogen Negative (Negative) Ur Leukocyte Esterase Negative (Negative) Urine RBC 0-4 (0-4) /hpf Urine WBC 10-30 H (0-5) /hpf Ur Epithelial Cells 0-5 (0-5) /lpf Urine Bacteria 2+ H (Negative) Blood Type O Positive Antibody Screen NEGATIVE 05/08/19 05/08/19 Range/Units 04:28 04:28 WBC 4.19 L (4.8-10.8) K/uL RBC 4.92 (4.2-5.4) M/uL Hgb 15.3 (12.0-16.0) g/dL Hct 45.8 (37-47) % MCV 93.1 (80-100) fL MCH 31.1 (25-34) pg MCHC 33.4 (32-36) g/dL RDW Std Deviation 46.1 (36.4-46.3) fL RDW Coeff of Oleg 13.5 (11.5-14.5) % Plt Count 173 (130-400) K/uL MPV 9.6 (7.4-10.4) fL Immature Gran % (Auto) 1.0 % Neut % (Auto) 61.1 % Lymph % (Auto) 25.5 % [place] % (Auto) 11.2 % Eos % (Auto) 1.2 % Baso % (Auto) 0.0 % Immature Gran # (Auto) 0.04 H (0.00-0.02) K/uL Neut # (Auto) 2.56 (1.4-6.5) K/uL Lymph # (Auto) 1.07 L (1.2-3.4) K/uL [place] # (Auto) 0.47 (0.11-0.59) K/uL Eos # (Auto) 0.05 (0-0.5) K/uL Baso # (Auto) 0.00 (0-0.2) K/uL PT 10.6 (9.0-12.0) Seconds INR 1.0 (0.9-1.1) APTT 24.7 (21.0-31.0) Seconds PTT Ratio 0.9 Sodium (136-145) mmol/L Potassium (3.5-5.1) mmol/L Chloride (98-107) mmol/L Carbon Dioxide (21-32) mmol/L Anion Gap (3-11) BUN (7-18) mg/dl Creatinine (0.6-1.2) mg/dl Est Cr Clr Drug Dosing ml/min Est GFR ( Amer) Est GFR (Non-Af Amer) BUN/Creatinine Ratio (10-20) Glucose (70-99) mg/dl Calcium (8.5-10.1) mg/dl Urine Color Urine Appearance (Clear) Urine pH (4.5-7.5) Ur Specific [place] (1.000-1.030) Urine Protein (Negative) Urine Glucose (UA) (Negative) Urine Ketones (Negative) Urine Blood (Negative) Urine Nitrite (Negative) Urine Bilirubin (Negative) Urine Urobilinogen (Negative) Ur Leukocyte Esterase (Negative) Urine RBC (0-4) /hpf Urine WBC (0-5) /hpf Ur Epithelial Cells (0-5) /lpf Urine Bacteria (Negative) Blood Type Antibody Screen Code Status & VTE Plan Code Status DNR as per living will VTE Prophylaxis Plan VTE Prophylaxis will be ordered: Yes Supervising Physician Co-Signing Physician Notes Patient was seen and examined by myself at bedside. During my face to face encounter, i obtained a history and physical examination. I later returned and discussed the case with the patient's daughter. My exam did not differ from above note. I agree with above note except for the following: Patient will be admitted to med/surg fr her subcapital fracture of her left femur. At the moment will limit her plavix and eliquis. May consider heparin infusion depending on when surgery will be held. Still awaiting input from ortho in regards to surgery. 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 The patient is known to Dr. Thompson and the [place] [facility] group. Daughter would like cardiology involved if we ultimately decide on switching her medications. Resident Activity Tracking Resident Involvement: Resident Care Provided Care Provided: Adult [facility] Medicine
[2019-05-08] MEDS ORDERED: ALUMINUM/MAGNESIUM SUSP 30 ML UDC PO PRN (06:25)
[2019-05-08] MEDS ORDERED: POLYETHYLENE (MIRALAX) 17 GM PACK PO PRN (06:25)
[2019-05-08] MEDS ORDERED: MAGNESIUM HYDROXIDE SUSP 30 ML UDC PO PRN (06:25)
[2019-05-08] MEDS ORDERED: ONDANSETRON INJ 2 MG/ML 2 ML VIAL IV PRN (06:25)
--- NOTE | 2019-05-08 06:31 | CT Scan Report ---
CT head/brain wo con CLINICAL HISTORY: Head pain status post head trauma COMPARISON STUDY: 11/14/2018 TECHNIQUE: Axial CT of the brain is performed from the vertex to the skull base. IV contrast was not administered for this examination. A dose lowering technique was utilized adhering to the principles of ALARA. CT DOSE: FINDINGS: No intra or extra-axial mass lesions are visualized. There is no CT evidence of acute cortical infarc tion. There is no evidence of midline shift. There is no acute hemorrhage. No calvarial fractures ar e visualized. There are moderately extensive white matter hypodensities likely on a small vessel basis. There is no evidence of pathologic ventricular dilatation. There is no evidence of acute sinusitis IMPRESSION: No acute intracranial findings Electronically signed by: Odilon iMguel M.D. 05/08/2019 6:30 AM
--- NOTE | 2019-05-08 06:41 | XRay Report ---
XR hip LT min 2V CLINICAL HISTORY: Left hip pain status post trauma COMPARISON: 11/14/2013 DISCUSSION: The bones are osteopenic. There is an acute subcapital left hip fracture. There is no dis location IMPRESSION: Subcapital left hip fracture. Electronically signed by: Odilon Miguel M.D. 05/08/2019 6:39 AM
[2019-05-08] MEDS: ACETAMINOPHEN 325 MG TAB PO PRN (06:42)
[2019-05-08] MEDS: TRAMADOL HCL 50 MG TABLET PO PRN (06:43)
--- NOTE | 2019-05-08 06:46 | XRay Report ---
XR chest 1V portable CLINICAL HISTORY: Chest pain status post trauma COMPARISON STUDY: 11/14/2018 FINDINGS: The cardiac and mediastinal contours remain stable. There is aortic tortuosity. There is a left subclavian dual-chamber central venous pacemaker. There is mild chronic interstitial thickening. There is no acute lobar consolidation. There are no pleural effusions. There is no overt failure. Th ere is mild biapical pleural thickening. There is no pneumothorax.[ IMPRESSION: No active disease in the chest. Electronically signed by: Odilon Miguel M.D. 05/08/2019 6:44 AM
--- NOTE | 2019-05-08 07:05 | CT Scan Report ---
CT SCAN OF THE CERVICAL SPINE CLINICAL HISTORY: Fall. COMPARISON STUDY: CT of the cervical spine dated 06/30/2017. TECHNIQUE: CT scan of the cervical spine is performed from the skull base to the upper thoracic spine . Images are reviewed in the axial, sagittal, and coronal planes. IV contrast was not administered fo r this examination. A dose lowering technique was utilized adhering to the principles of ALARA. CT DOSE: 944.29 mGy.cm FINDINGS: Skeletal structures: The skeletal structures are osteopenic. There is no evidence of fracture or subl uxation involving the cervical spine. Vertebral body height is maintained. There is minimal retrolist hesis at C3-C4 and C4-C5. Minimal anterolisthesis is noted at C6-C7. Small anterior osteophytes are s een throughout. The odontoid process and lateral masses are intact. The atlantoaxial articulation is preserved noting advanced productive degenerative change. The spinous processes appear intact. There is moderate multilevel cervical spondylosis. Uncovertebral and facet arthropathy contribute to neural foraminal stenosis at several levels. Intervertebral discs: Moderate disc space narrowing is seen at all levels between C3-C4 and C5-C6. Central canal: A posterior disc osteophyte complex at C5-C6 may contribute to mild acquired compromis e of the central canal. Soft tissues: The prevertebral and paraspinous soft tissues are within normal limits. Pacemaker leads are noted in the left lower neck. Calvarium: The visualized calvarium at the skull base appears intact. Brain parenchyma: Partially visualized brain parenchyma the skull base is within normal limits. Sinuses and mastoids: The visualized paranasal sinuses are clear. The mastoid air cells are well pneu matized. Lung apices: Apical pleural parenchymal scarring is noted. Apical lung parenchyma is otherwise clear as visualized. IMPRESSION: 1. There is no evidence of fracture or subluxation involving the cervical spine. 2. Osteopenia and spondylotic change as above. Electronically signed by: Agus Jo M.D. 05/08/2019 7:04 AM
--- NOTE | 2019-05-08 07:11 | Emergency Department Note ---
Entered by Orlando Morin acting as a scribe for History of Present Illness General Chief complaint: Fall Stated complaint: FALL/HIP PAIN Time Seen by Provider: 05/08/19 04:06 Source: patient and other (nurse) Limitations: other (dementia) History of Present Illness Onset (ago): day(s) (this morning) Location: left (hip) Pain Consistency: + constant Exacerbated By: + other (coughing) Associated symptoms: + other (Positive for pain in the back of the head and a chronic cough. Negative for abdominal pain.) The patient is an 88 year old female who presents to the emergency department with complaints of constant left hip pain following a fall occurring this morning. Per nurse, the patient is a resident at [facility]. She states that the patient fell when she was walking to the bathroom this morning. She notes that staff heard her fall and got to her right away. The patient states that she has a chronic cough, and she notes that she has pain in her left hip when she coughs. She reports that she also has pain in the back of her head. She denies any abdominal pain. She reports that the patient has a history of dementia and Afib. She states that the patient is on Eliquis. HPI limited secondary to dementia. Home Medications Home Medications Medication Instructions Recorded Confirmed Type Lactobacillus acidophilus 1 tab PO DAILY 11/14/18 05/08/19 History acetaminophen [Tylenol] 650 mg PO TID PRN MDD 3g/24hr 11/14/18 05/08/19 History albuterol sulfate 2 inh INHALATION Q6H PRN 11/14/18 05/08/19 History apixaban [Eliquis] 2.5 mg PO BID 11/14/18 05/08/19 History atorvastatin 20 mg PO QPM 11/14/18 05/08/19 History bisacodyl [Dulcolax (bisacodyl)] 10 mg ID .Q48 PRN 11/14/18 05/08/19 History cholecalciferol (vitamin D3) 2,000 unit PO QAM 11/14/18 05/08/19 History [Vitamin D3] clopidogrel 75 mg PO QAM 11/14/18 05/08/19 History diclofenac sodium [Voltaren] 4 g TOPICAL BID PRN 11/14/18 05/08/19 History digoxin [Digox] 125 mcg PO QAM 11/14/18 05/08/19 History fluticasone propionate 2 spray INTRANASAL HS 11/14/18 05/08/19 History guaifenesin [Mucinex] 600 mg PO BID PRN 11/14/18 05/08/19 History levalbuterol HCl [Xopenex] 0.63 mg INHALATION QID PRN 11/14/18 05/08/19 History magnesium hydroxide [Milk of 30 ml PO .Q48H 11/14/18 05/08/19 History Magnesia] magnesium oxide 400 mg PO QPM 11/14/18 05/08/19 History melatonin 5 mg PO HS 11/14/18 05/08/19 History metoprolol tartrate 50 mg PO BID 11/14/18 05/08/19 History miscellaneous medical supply 11/14/18 03/06/19 History [Ocusoft Eyelid Cleansing Pads] [id number] 1,000 mg PO QAM 11/14/18 05/08/19 History [Airborne (lysine HCl)] [id number] 333 mg PO BID PRN 11/14/18 05/08/19 History [Airborne (ascorbate sodium)] nitroglycerin [Nitrostat] 0.4 mg SUBLINGUAL UD 11/14/18 05/08/19 History phenylephrine-witch susana 1 applic TOPICAL Q8H PRN 11/14/18 05/08/19 History [Preparation H(pe, witch susana)] ranitidine HCl 150 mg PO BID 11/14/18 05/08/19 History sennosides [senna] 8.6 mg PO 3XWK 11/14/18 05/08/19 History simethicone 80 mg PO TID PRN 11/14/18 05/08/19 History sodium chloride [Saline Nasal] 1 spray INTRANASAL Q6H PRN 11/14/18 05/08/19 History sodium phosphates [Fleet Enema] 118 ml ID Q72H 11/14/18 05/08/19 History wheat dextrin [Benefiber Sugar 3 g PO DAILY 11/14/18 05/08/19 History Free (dextrin)] witch susana [Tucks (witch susana)] 50 % TOPICAL Q8 PRN 11/14/18 05/08/19 History denosumab 60 mg/mL subcutaneous 60 mg SQ .COMPLEX ml 01/15/19 05/08/19 History syringe ascorbic acid (vitamin C) 500 mg 500 mg PO DAILY 01/29/19 05/08/19 History tablet amlodipine 2.5 mg tablet 2.5 mg PO DAILY 03/06/19 05/08/19 History Baby Shampoo 1 applic TOPICAL BID PRN 05/08/19 05/08/19 History fluticasone propion-salmeterol 1 inh INHALATION BID 05/08/19 05/08/19 History [Advair Diskus] hydrocortisone 1 applic TOPICAL BID PRN 05/08/19 05/08/19 History hydrocortisone 1 applic TOPICAL UD PRN MDD 14 05/08/19 05/08/19 History doses per month meclizine 25 mg PO TID PRN 05/08/19 05/08/19 History tramadol 25 mg PO Q4 PRN 05/08/19 05/08/19 History tramadol 25 mg PO QAM 05/08/19 05/08/19 History Allergies Allergy/AdvReac Type Severity Reaction Status Date / Time alendronate sodium Allergy Mild GI SYMPTOMS Verified 05/08/19 05:11 prednisone Allergy Unknown UNKOWN Verified 05/08/19 05:11 Past Med/Surg History Medical History Atrial fibrillation (Acute) CAD (coronary artery disease) (Acute) CAD (coronary artery disease) (Chronic) Congestive heart failure Dementia Heart attack (Resolved) Myocardial infarction (Acute) Pulmonary embolism (Resolved) Vertigo Vision disturbance (Chronic) Surgical History H/O cardiac catheterization (Resolved) H/O heart surgery H/O lumpectomy History of tonsillectomy Status post breast lumpectomy Status post placement of cardiac pacemaker Stented coronary artery (Chronic) Family History Father Diabetes Brother Stroke Father Diabetes Brother Stroke syndrome Social History Preferred Language: Macedonian Communication Ability: Effective Network Engineer Required: No Beliefs That Will Affect Care: None marital status: / Current Living Situation: Personal Care Facility Feels Safe at Home: Yes Safety Concerns: Feels Safe At This Time Smoking Status: Never smoker Hx Alcohol Use: No Hx Substance Use: No Review of Systems See HPI for pertinent positives & negatives. and A total of 10 systems reviewed and were otherwise negative Physical Exam Vital Signs Vital Signs - 24 hr 05/08/19 04:00 05/08/19 04:02 05/08/19 04:30 Temperature 36.8 C Temperature Source Oral Pulse Rate 67 66 68 Pulse Rate from SpO2 Sensor 67 69 Respiratory Rate 20 14 18 Respiratory Effort / Characteristics Non-Labored Spontaneous Respiratory Depth Normal Blood Pressure 182/94 H 183/96 H 180/91 H Blood Pressure Mean 107 125 112 Pulse Oximetry 94 95 95 Oxygen Delivery Method Room Air Room Air Room Air Oxygen Flow Rate Sepsis Recent Fever Within 48 Hours No Sepsis Action Taken by Nursing No Action Required 05/08/19 05:14 05/08/19 05:30 Temperature Temperature Source Pulse Rate 80 66 Pulse Rate from SpO2 Sensor 71 66 Respiratory Rate 19 14 Respiratory Effort / Characteristics Respiratory Depth Blood Pressure 188/91 H 176/92 H Blood Pressure Mean 121 112 Pulse Oximetry 93 98 Oxygen Delivery Method Nasal Cannula Oxygen Flow Rate 2 Sepsis Recent Fever Within 48 Hours Sepsis Action Taken by Nursing HEENT: Head - normocephalic. Cephalohematoma in mid occiput. Pupils are equal, round, and reactive to light. Extraocular eye muscles are intact and sclera are anicteric. Ears - bilaterally patent canals with no evidence of hemotympanum. Nose - moist nasal mucosa without evidence of trauma or discharge. Mouth - moist buccal mucosa with no trauma to the teeth or signs of malocclusion. Neck: The neck is supple and there is no pain to palpation over the posterior cervical spine and no obvious step-offs or deformities. There is no JVD or tracheal deviation. Chest: There are no signs of deformities, contusions or abrasions to the chest wall. There is no obvious crepitus or paradoxical chest rise. Heart: Regular, rate, and rhythm. There is a normal S1 and S2 with no murmurs, clicks, or gallops appreciated. Lungs: Clear to auscultation bilaterally with no wheezes, rales, or rhonchi. Abdomen: Soft, completely nontender, nondistended, with good bowel sounds. There is no sign of trauma such as contusions, abrasions or penetrations. There are no palpable pulsatile masses or hepatosplenomegaly. There is no guarding, rigidity, or rebound noted. Pelvis: Stable to rock and compression. Extremities: No obvious deformities, contusions, or edema. There are easily palpable peripheral pulses. Skin tear that is bleeding to left elbow. Neuro: The patient is awake and alert and easily able to follow commands. Muscle strength is 5 out of 5 in all 4 extremities. Otherwise, neuro exam is unremarkable. Course Course 0416: The patient was evaluated in room B9. A complete history and physical examination were performed. Nursing notes and previous electronic medical records were reviewed. IV lock was established and labs were drawn as above. 0442: Fentanyl Citrate 30mcg IV 0443: Sodium Chloride 1000 mls @ 75 mls/hr IV 0502: I rechecked the patient. She had some relief of her pain with fentanyl. She is going to CT. 0503: Upon reevaluation, the patient is stable. I discussed the findings and the treatment plan with the patient. She expresses agreement and understanding. I spoke with Dr. Shrestha of the [facility] Hospitalist Service. The patient will be evaluated for further management. 0535: The patient's daughters at the bedside. I spoke with her and answered questions. Consultations Consultation #1: I reviewed the patient's case with Dr. Shrestha - Hospitalist, [facility]. He will evaluate the patient for further management. Time: 05:03 Administered Medications Acetaminophen (Tylenol) 650 mg PO Q4H PRN PRN Reason: pain/fever Stop: 06/07/19 06:24 Last Admin: 05/08/19 06:42 Dose: 650 mg Documented by: [id number] Sodium Chloride (Nss 1000ml) 1,000 mls @ 75 mls/hr IV .[id number] ANGELINA Stop: 05/08/19 17:49 Last Admin: 05/08/19 04:43 Dose: 75 mls/hr Documented by: [id number] Tramadol HCl (Ultram) 25 mg PO Q4 PRN PRN Reason: Pain Stop: 06/07/19 05:37 Last Admin: 05/08/19 06:43 Dose: 25 mg Documented by: [id number] Discontinued Medications Fentanyl Citrate (Fentanyl Citrate) 30 mcg IV NOW ONE Stop: 05/08/19 04:38 Last Admin: 05/08/19 04:42 Dose: 30 mcg Documented by: [id number] Medical Decision Making Differential Diagnosis Differential diagnoses include: head injury, C spine injury, left hip fracture, pelvis fracture, mechanical fall, and syncope. Medical Records Attestation: I reviewed the patient's medical records. Home Medications Current Medication List: was personally reviewed by me Laboratory Data Attestation: I reviewed the patient's lab results. Result diagrams: 05/08/19 04:28 05/08/19 04:28 Lab Results 05/08/19 05/08/19 05/08/19 Range/Units 04:28 04:28 04:28 WBC 4.19 L (4.8-10.8) K/uL RBC 4.92 (4.2-5.4) M/uL Hgb 15.3 (12.0-16.0) g/dL Hct 45.8 (37-47) % MCV 93.1 (80-100) fL MCH 31.1 (25-34) pg MCHC 33.4 (32-36) g/dL RDW Std Deviation 46.1 (36.4-46.3) fL RDW Coeff of Oleg 13.5 (11.5-14.5) % Plt Count 173 (130-400) K/uL MPV 9.6 (7.4-10.4) fL Immature Gran % (Auto) 1.0 % Neut % (Auto) 61.1 % Lymph % (Auto) 25.5 % [place] % (Auto) 11.2 % Eos % (Auto) 1.2 % Baso % (Auto) 0.0 % Immature Gran # (Auto) 0.04 H (0.00-0.02) K/uL Neut # (Auto) 2.56 (1.4-6.5) K/uL Lymph # (Auto) 1.07 L (1.2-3.4) K/uL [place] # (Auto) 0.47 (0.11-0.59) K/uL Eos # (Auto) 0.05 (0-0.5) K/uL Baso # (Auto) 0.00 (0-0.2) K/uL PT 10.6 (9.0-12.0) Seconds INR 1.0 (0.9-1.1) APTT 24.7 (21.0-31.0) Seconds PTT Ratio 0.9 Sodium 137 (136-145) mmol/L Potassium 3.9 (3.5-5.1) mmol/L Chloride 103 (98-107) mmol/L Carbon Dioxide 31 (21-32) mmol/L Anion Gap 3.0 (3-11) BUN 15 (7-18) mg/dl Creatinine 0.76 (0.6-1.2) mg/dl Est Cr Clr Drug Dosing 39.7 ml/min Est GFR ( Amer) 80.6 Est GFR (Non-Af Amer) 69.5 BUN/Creatinine Ratio 19.2 (10-20) Glucose 107 H (70-99) mg/dl Calcium 9.2 (8.5-10.1) mg/dl Urine Color Urine Appearance (Clear) Urine pH (4.5-7.5) Ur Specific [place] (1.000-1.030) Urine Protein (Negative) Urine Glucose (UA) (Negative) Urine Ketones (Negative) Urine Blood (Negative) Urine Nitrite (Negative) Urine Bilirubin (Negative) Urine Urobilinogen (Negative) Ur Leukocyte Esterase (Negative) Urine RBC (0-4) /hpf Urine WBC (0-5) /hpf Ur Epithelial Cells (0-5) /lpf Urine Bacteria (Negative) Blood Type Antibody Screen 05/08/19 05/08/19 Range/Units 04:47 04:55 WBC (4.8-10.8) K/uL RBC (4.2-5.4) M/uL Hgb (12.0-16.0) g/dL Hct (37-47) % MCV (80-100) fL MCH (25-34) pg MCHC (32-36) g/dL RDW Std Deviation (36.4-46.3) fL RDW Coeff of Oleg (11.5-14.5) % Plt Count (130-400) K/uL MPV (7.4-10.4) fL Immature Gran % (Auto) % Neut % (Auto) % Lymph % (Auto) % [place] % (Auto) % Eos % (Auto) % Baso % (Auto) % Immature Gran # (Auto) (0.00-0.02) K/uL Neut # (Auto) (1.4-6.5) K/uL Lymph # (Auto) (1.2-3.4) K/uL [place] # (Auto) (0.11-0.59) K/uL Eos # (Auto) (0-0.5) K/uL Baso # (Auto) (0-0.2) K/uL PT (9.0-12.0) Seconds INR (0.9-1.1) APTT (21.0-31.0) Seconds PTT Ratio Sodium (136-145) mmol/L Potassium (3.5-5.1) mmol/L Chloride (98-107) mmol/L Carbon Dioxide (21-32) mmol/L Anion Gap (3-11) BUN (7-18) mg/dl Creatinine (0.6-1.2) mg/dl Est Cr Clr Drug Dosing ml/min Est GFR ( Amer) Est GFR (Non-Af Amer) BUN/Creatinine Ratio (10-20) Glucose (70-99) mg/dl Calcium (8.5-10.1) mg/dl Urine Color Yellow Urine Appearance Slightly Cloudy (Clear) Urine pH 8.0 H (4.5-7.5) Ur Specific [place] 1.010 (1.000-1.030) Urine Protein Negative (Negative) Urine Glucose (UA) Negative (Negative) Urine Ketones Negative (Negative) Urine Blood Negative (Negative) Urine Nitrite Positive A (Negative) Urine Bilirubin Negative (Negative) Urine Urobilinogen Negative (Negative) Ur Leukocyte Esterase Negative (Negative) Urine RBC 0-4 (0-4) /hpf Urine WBC 10-30 H (0-5) /hpf Ur Epithelial Cells 0-5 (0-5) /lpf Urine Bacteria 2+ H (Negative) Blood Type O Positive Antibody Screen NEGATIVE Imaging Data Attestation: I personally reviewed and interpreted this imaging study as follows: My Impression: LEFT HIP X-RAY: Femoral neck fracture. No obvious pelvis fracture. CHEST X-RAY: Implanted pacemaker. Chronic interstitial changes, nothing acute. Radiologist's Impression: Radiology results as stated below per my review and the radiologist's interpretation: CT HEAD: COMPARISON: Head CT dated 11/14/18. Severe chronic small vessel ischemic change. No ICH, mass effect, or edema. No skull fracture. Radiologist: Heron Mcconnell MD. CT C SPINE: COMPARISON: CTA Neck dated 11/14/18, CT C SPINE dated 06/30/17. No evidence of fracture or malalignment. Suble widening of the disc space C6/C7 anteriorly, chronic. Radiologist: Heron Mcconnell MD. ECG Data Attestation: I personally reviewed and interpreted this ECG as follows: Indication: + weakness Rate (beats per minute): 70 Rhythm: + normal sinus ECG Intervals/blocks: + First degree AV block and + Right Bundle branch block ECG ST segments: no ST depression and no ST elevation Blood Pressure Blood Pressure Findings: Elevated blood pressure Blood Pressure Disposition: further management by hospitalist Head Trauma GCS Score: 15 MDM Narrative The patient is an 88 year old female who presents to the emergency department with complaints of constant left hip pain following a fall occurring this morning. The patient resides at [facility]. She suffers from mild dementia. Unfortunately, she suffered a fall overnight and is now complaining of left hip pain. The patient takes Eliquis for A. fib. She did strike her head. CT scan of the brain and cervical spine were negative for acute traumatic injuries. The patient does have a left hip fracture. The case was discussed with the [facility] Hospitalist and they will evaluate for further management and consult orthopedics. I kept the patient and her daughter abreast of the situation. The patient received 30 mcg of IV fentanyl which cause her to become lethargic and slightly hypoxic. Supplemental O2 was applied. The daughter explains that it is not unusual for her to have reaction to medications like that. Impression & Plan Closed fracture of left hip, Fall Discharge Plan Visit Data *Final* Discharge Date/Time: 05/08/19 06:04 Chief Complaint: Fall Stated Complaint: FALL/HIP PAIN ED Provider: Vanessa Pastor Discharge Problem: Closed fracture of left hip, Fall Patient Disposition: Admitted As Inpatient Discharge Instructions Interventions: ED Discharge Assessment Last Done: 05/08/19 06:04 Discharge Problem: Closed fracture of left hip Qualifiers: Encounter type: initial encounter Qualified Code(s): S72.002A - Fracture of unspecified part of neck of left femur, initial encounter for closed fracture Fall Qualifiers: Encounter type: initial encounter Qualified Code(s): W19.XXXA - Unspecified fall, initial encounter The scribe's documentation has been prepared under my direction and personally reviewed by me in its entirety. I confirm that the note above accurately reflects all work, treatment, procedures, and medical decision making performed by me.
[2019-05-08] MEDS: FLUTICASONE/SALMETEROL 250/50 (ADVAIR) 14 PUFF/1 INHALER INH SCH ×2 (08:04→22:51)
[2019-05-08] MEDS: AMLODIPINE BESYLATE 5 MG TAB PO SCH (08:05)
[2019-05-08] MEDS: METOPROLOL TARTRATE 50 MG TAB PO SCH ×2 (08:05→22:01)
--- NOTE | 2019-05-08 08:19 | XRay Report ---
XR femur LT 2V routine CLINICAL HISTORY: left hip fracture COMPARISON STUDY: Left hip 05/08/2019. FINDINGS: The bones are osteopenic. Redemonstration of the impacted left femoral subcapital neck frac ture. No dislocation. No additional fractures within the mid to distal left femur. No significant kne e effusion. IMPRESSION: 1. Redemonstration of the left femoral neck fracture. 2. No additional fractures identified within the mid to distal left femur. Electronically signed by: Olivier Godoy M.D. 05/08/2019 8:18 AM
[2019-05-08] MEDS ORDERED: TRAMADOL HCL 50 MG TABLET PO SCH (09:00)
[2019-05-08] MEDS: MoRPHine SULFATE 2 MG/ML CARP IV PRN ×4 (09:14→22:54)
[2019-05-08] MEDS: cefTRIAXone SODIUM 1,000 MG in DEXTROSE 5% 50 ML IV SCH (11:27)
[2019-05-08] MEDS: D5W AND 1/2NSS 1,000 ML IV SCH (13:21)
--- NOTE | 2019-05-08 13:39 | History & Physical Bridge Note ---
Date of Service May 08, 2019 History & Physical Bridge Note I have examined the patient, reviewed the History & Physical and in the interval since the performance of the History & Physical I have noted the following changes of clinical significance: Pt needed improved paincontrol after admission. Added IV morphine which helped. Daughter reports pt is surprisingly fairly lucid on the morphine. has pain with any movement. Normally gets around with her walker without CP or SOB and has good quality of life. Has a h/o presyncopal episodes Discussed case with Cardiology as well as Ortho. VSS RRR no MGR CTAB no wcr Abd +BS soft NT ND Ext LLE shortened and internally rotated, moans with pain with palpation over left hip, 2+ DP pulses bilat Skin no rashes or ecchymosis 88 yo female with a h/o previous systolic CHF now resolved, PAF on Eliquis, CAD s/p stents 8 years ago, dementia, osteoporosis, SSS s/p PPM, here with fall and left hip fracture -added morphine IV -can eat today, NPO after midnight for Ortho Surgery tomorrow -continue to hold Eliquis and Plavix and restart after surgery when can -add D5W1/2NS at 50mL/hr
--- NOTE | 2019-05-08 13:47 | Cardiology Consultation ---
Date of Consultation May 08, 2019 Assessment & Plan (1) CAD (coronary artery disease): She has remote history of myocardial infarction. She is not currently having symptoms consistent with angina or coronary insufficiency. Her percutaneous intervention was quite remote at this point it would seem reasonable to discontinue her Plavix to facilitate her operation. Control of her blood pressure, pulse, maintenance of good oxygenation and hemoglobin levels are standard recommendations in the perioperative period (2) Pacemaker: Normal device function. No arrhythmias identified with the exception of intermittent atrial fibrillation. Controlled ventricular rates. She is not pacemaker dependent no specific precautions are required in the intraoperative period. No reprogramming necessary. (3) Atrial fibrillation: She has intermittent episodes of atrial fibrillation which are not symptomatic. Overall ventricular rates appear to be well controlled. She has been maintained on systemic anticoagulation which can be interrupted to facilitate her surgery. Reinstitution of anticoagulation at the earliest opportunity postoperatively would be advisable. (4) Cardiomyopathy: This appears to be resolved on most recent echocardiogram. She does not describe symptoms consistent with decompensated heart failure. No findings on examination consistent with congestive heart failure. History of Present Illness Reason for Consultation: Preoperative evaluation Requesting Physician: Chava Attending Physician: Helene Larsen MD History of Present Illness The patient is an 88-year-old woman with a history of coronary artery disease having suffered an acute anterior myocardial infarction in 2009. She also has a history of an ischemic cardiomyopathy currently resolved, pulmonary embolus, sick sinus syndrome and paroxysmal atrial fibrillation. The patient currently lives in an assisted living residence. She is ambulatory with a walker and generally does not have symptoms of limiting dyspnea or symptoms of chest discomfort. She does suffer from periods of dizziness. This is a chronic complaint. She has not suffered from actual syncope and there has been no known at etiology for her dizziness. Last evening while ambulating to the bathroom she apparently fell and broke her hip. She also had a very minor head injury. She does not recall being dizzy at that time. She does not recall any sense of palpitation. She has not report a loss of consciousness. Currently she has significant pain at the fracture site. She is not describing chest pain. She does not describe orthopnea or paroxysmal nocturnal dyspnea. She has not been aware of palpitations. Her daughter who was at the bedside provided some supplemental history. She also did not endorse any symptoms of recent chest pain or limiting dyspnea. Allergies Allergy/AdvReac Type Severity Reaction Status Date / Time alendronate sodium Allergy Mild GI SYMPTOMS Verified 05/08/19 05:11 prednisone Allergy Unknown UNKOWN Verified 05/08/19 05:11 Home Medications Home Medications Medication Instructions Recorded Confirmed Type Lactobacillus acidophilus 1 tab PO DAILY 11/14/18 05/08/19 History acetaminophen [Tylenol] 650 mg PO TID PRN MDD 3g/24hr 11/14/18 05/08/19 History albuterol sulfate 2 inh INHALATION Q6H PRN 11/14/18 05/08/19 History apixaban [Eliquis] 2.5 mg PO BID 11/14/18 05/08/19 History atorvastatin 20 mg PO QPM 11/14/18 05/08/19 History bisacodyl [Dulcolax (bisacodyl)] 10 mg MA .Q48 PRN 11/14/18 05/08/19 History cholecalciferol (vitamin D3) 2,000 unit PO QAM 11/14/18 05/08/19 History [Vitamin D3] clopidogrel 75 mg PO QAM 11/14/18 05/08/19 History diclofenac sodium [Voltaren] 4 g TOPICAL BID PRN 11/14/18 05/08/19 History digoxin [Digox] 125 mcg PO QAM 11/14/18 05/08/19 History fluticasone propionate 2 spray INTRANASAL HS 11/14/18 05/08/19 History guaifenesin [Mucinex] 600 mg PO BID PRN 11/14/18 05/08/19 History levalbuterol HCl [Xopenex] 0.63 mg INHALATION QID PRN 11/14/18 05/08/19 History magnesium hydroxide [Milk of 30 ml PO .Q48H 11/14/18 05/08/19 History Magnesia] magnesium oxide 400 mg PO QPM 11/14/18 05/08/19 History melatonin 5 mg PO HS 11/14/18 05/08/19 History metoprolol tartrate 50 mg PO BID 11/14/18 05/08/19 History miscellaneous medical supply 11/14/18 03/06/19 History [Ocusoft Eyelid Cleansing Pads] [id number] 1,000 mg PO QAM 11/14/18 05/08/19 History [Airborne (lysine HCl)] [id number] 333 mg PO BID PRN 11/14/18 05/08/19 History [Airborne (ascorbate sodium)] nitroglycerin [Nitrostat] 0.4 mg SUBLINGUAL UD 11/14/18 05/08/19 History phenylephrine-witch susana 1 applic TOPICAL Q8H PRN 11/14/18 05/08/19 History [Preparation H(pe, witch susana)] ranitidine HCl 150 mg PO BID 11/14/18 05/08/19 History sennosides [senna] 8.6 mg PO 3XWK 11/14/18 05/08/19 History simethicone 80 mg PO TID PRN 11/14/18 05/08/19 History sodium chloride [Saline Nasal] 1 spray INTRANASAL Q6H PRN 11/14/18 05/08/19 History sodium phosphates [Fleet Enema] 118 ml MA Q72H 11/14/18 05/08/19 History wheat dextrin [Benefiber Sugar 3 g PO DAILY 11/14/18 05/08/19 History Free (dextrin)] witch susana [Tucks (witch susana)] 50 % TOPICAL Q8 PRN 11/14/18 05/08/19 History denosumab 60 mg/mL subcutaneous 60 mg SQ .COMPLEX ml 01/15/19 05/08/19 History syringe ascorbic acid (vitamin C) 500 mg 500 mg PO DAILY 01/29/19 05/08/19 History tablet amlodipine 2.5 mg tablet 2.5 mg PO DAILY 03/06/19 05/08/19 History Baby Shampoo 1 applic TOPICAL BID PRN 05/08/19 05/08/19 History fluticasone propion-salmeterol 1 inh INHALATION BID 05/08/19 05/08/19 History [Advair Diskus] hydrocortisone 1 applic TOPICAL BID PRN 05/08/19 05/08/19 History hydrocortisone 1 applic TOPICAL UD PRN MDD 14 05/08/19 05/08/19 History doses per month meclizine 25 mg PO TID PRN 05/08/19 05/08/19 History tramadol 25 mg PO Q4 PRN 12/03/19 12/03/19 History tramadol 25 mg PO QAM 05/08/19 05/08/19 History Patient History Medical History Atrial fibrillation (Acute) CAD (coronary artery disease) (Acute) CAD (coronary artery disease) (Chronic) Congestive heart failure Dementia Heart attack (Resolved) Myocardial infarction (Acute) Pulmonary embolism (Resolved) Vertigo Vision disturbance (Chronic) Surgical History H/O cardiac catheterization (Resolved) H/O heart surgery H/O lumpectomy History of tonsillectomy Status post breast lumpectomy Status post placement of cardiac pacemaker Stented coronary artery (Chronic) Family History Father Diabetes Brother Stroke Father Diabetes Brother Stroke syndrome Social History Preferred Language: [place] 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 Physical Exam Physical Exam: She is alert and oriented x3. Mood affect appear normal. She answered all questions appropriately. HEENT: Sclerae are anicteric. Pupils are equal and reactive to light and ac commodation. Extraocular movements were intact. Neuro: Cranial nerves intact Neck: Examination of the submandibular region did not reveal any significant lymphadenopathy. Carotids are palpable bilaterally and free of bruits on auscultation. There was no evidence of jugular venous distention. The thyroid was not enlarged. Lungs: Lungs are clear to auscultation bilaterally. There are no rales wheezes or rhonchi. She has normal respiratory effort without use of accessory muscles. There is normal pulmonary excursion. Cardiac: The rhythm was regular. S1 and S2 were normal. There are no murmurs on examination. The PMI was not markedly displaced on palpation. Abdomen: The abdomen was soft and nontender. Extremities: Patient has bilateral radial pulses that are equal in intensity. There is no evidence cyanosis or clubbing. Skin: There are no rashes noted on examination today. Results & Data Vital Signs (Past 12 Hours) Vital Signs Temp Pulse Pulse Resp BP BP Pulse Ox 05/08/19 06:38 36.7 C 70 16 175/92 H 96 05/08/19 06:00 107 H 19 162/82 H 99 05/08/19 05:30 66 14 176/92 H 98 05/08/19 05:14 80 19 188/91 H 93 05/08/19 04:30 68 18 180/91 H 95 05/08/19 04:02 36.8 C 66 14 183/96 H 95 05/08/19 04:00 67 20 182/94 H 94 Laboratory Results Abnormal Lab Results 05/08/19 05/08/19 05/08/19 04:28 04:28 04:28 WBC 4.19 L RBC 4.92 Hgb 15.3 Hct 45.8 MCV 93.1 MCH 31.1 MCHC 33.4 RDW Std Deviation 46.1 RDW Coeff of Oleg 13.5 Plt Count 173 MPV 9.6 Immature Gran % (Auto) 1.0 Neut % (Auto) 61.1 Lymph % (Auto) 25.5 [place] % (Auto) 11.2 Eos % (Auto) 1.2 Baso % (Auto) 0.0 Immature Gran # (Auto) 0.04 H Neut # (Auto) 2.56 Lymph # (Auto) 1.07 L [place]aston # (Auto) 0.47 Eos # (Auto) 0.05 Baso # (Auto) 0.00 PT 10.6 INR 1.0 APTT 24.7 PTT Ratio 0.9 Sodium 137 Potassium 3.9 Chloride 103 Carbon Dioxide 31 Anion Gap 3.0 BUN 15 Creatinine 0.76 Est Cr Clr Drug Dosing 39.7 Est GFR ( Amer) 80.6 Est GFR (Non-Af Amer) 69.5 BUN/Creatinine Ratio 19.2 Glucose 107 H Calcium 9.2 Urine Color Urine Appearance Urine pH Ur Specific [place] Urine Protein Urine Glucose (UA) Urine Ketones Urine Blood Urine Nitrite Urine Bilirubin Urine Urobilinogen Ur Leukocyte Esterase Urine RBC Urine WBC Ur Epithelial Cells Urine Bacteria Blood Type Antibody Screen 05/08/19 05/08/19 04:47 04:55 WBC RBC Hgb Hct MCV MCH MCHC RDW Std Deviation RDW Coeff of Oleg Plt Count MPV Immature Gran % (Auto) Neut % (Auto) Lymph % (Auto) [place] % (Auto) Eos % (Auto) Baso % (Auto) Immature Gran # (Auto) Neut # (Auto) Lymph # (Auto) Gaston # (Auto) Eos # (Auto) Baso # (Auto) PT INR APTT PTT Ratio Sodium Potassium Chloride Carbon Dioxide Anion Gap BUN Creatinine Est Cr Clr Drug Dosing Est GFR ( Amer) Est GFR (Non-Af Amer) BUN/Creatinine Ratio Glucose Calcium Urine Color Yellow Urine Appearance Slightly Cloudy Urine pH 8.0 H Ur Specific [place] 1.010 Urine Protein Negative Urine Glucose (UA) Negative Urine Ketones Negative Urine Blood Negative Urine Nitrite Positive A Urine Bilirubin Negative Urine Urobilinogen Negative Ur Leukocyte Esterase Negative Urine RBC 0-4 Urine WBC 10-30 H Ur Epithelial Cells 0-5 Urine Bacteria 2+ H Blood Type O Positive Antibody Screen NEGATIVE Diagnostic Findings X-rays obtained in emergency room revealed a left femoral neck fracture. CT scan of the head was also performed which did not reveal any acute fracture or acute process. Chest x-ray did not demonstrate any acute cardiopulmonary process. Echocardiogram performed 01/05/2018: Normal LV systolic function with an ejection fraction of 60-65 percent. Mild mitral regurgitation. I performed a complete device interrogation which revealed 5 percent atrial fibrillation since the last interrogation. She did have 1 episode 2 nights ago which lasted approximately 2 minutes. Overall ventricular rates seem to be well controlled. No other arrhythmias. Normal device function. ECG Additional Comments: Normal sinus rhythm with first-degree AV block and right bundle branch block. PG Care Time/CCT Total # of Minutes Spent Total Time Spent with Patient: Total time spent is greater than 50% in coordination of care (as documented) at patient's floor/unit and/or counseling patient:
[2019-05-08] MEDS: DIGOXIN 0.125 MG TAB PO SCH (16:13)
--- NOTE | 2019-05-08 17:22 | Orthopedic Consultation ---
Date of Consultation May 08, 2019 Assessment & Plan (1) Closed fracture of left hip: Left hip valgus impacted femoral neck fracture. I have indicated the patient for percutaneous hip pinning. Discussed risk, benefits, complications and alternatives with patient and family. Due to blood thinners, surgery to be delayed till 05/09/19. The patient and family wish to proceed with surgery. NPO after midnight. NWB LLE, bedrest, pain control. The risks, benefits and complications of surgery include but not limited to infection, acute blood loss, DVT/PE, injury to nerves, vessels, bone, soft tissue, arthrofibrosis, chronic pain, failure of the implants, hip dislocation, leg length discrepancy, need for additional surgery, cardiac and pulmonary events and . Alternatives include no surgery which would result in inability to ambulate, worsening clinical picture and symptoms. History of Present Illness Reason for Consultation: Left hip fracture Attending Physician: Helene Larsen MD History of Present Illness The patient is a 88 year old female who presented to [facility] ED secondary to a mechanical fall from standing height and subsequent left hip pain and inability to ambulate. XRs taken in the ED demonstrates a left femoral neck fracture and the patient was admitted for further inpatient observation and treatment. Patient denies hitting head or LOC. Denies associated pain or injuries. Denies numbness or tingling in left lower extremity. Allergies Allergy/AdvReac Type Severity Reaction Status Date / Time alendronate sodium Allergy Mild GI SYMPTOMS Verified 05/08/19 05:11 prednisone Allergy Unknown UNKOWN Verified 05/08/19 05:11 Home Medications Home Medications Medication Instructions Recorded Confirmed Type Lactobacillus acidophilus 1 tab PO DAILY 11/14/18 05/08/19 History acetaminophen [Tylenol] 650 mg PO TID PRN MDD 3g/24hr 11/14/18 05/08/19 History albuterol sulfate 2 inh INHALATION Q6H PRN 11/14/18 05/08/19 History apixaban [Eliquis] 2.5 mg PO BID 11/14/18 05/08/19 History atorvastatin 20 mg PO QPM 11/14/18 05/08/19 History bisacodyl [Dulcolax (bisacodyl)] 10 mg GA .Q48 PRN 11/14/18 05/08/19 History cholecalciferol (vitamin D3) 2,000 unit PO QAM 11/14/18 05/08/19 History [Vitamin D3] clopidogrel 75 mg PO QAM 11/14/18 05/08/19 History diclofenac sodium [Voltaren] 4 g TOPICAL BID PRN 11/14/18 05/08/19 History digoxin [Digox] 125 mcg PO QAM 11/14/18 05/08/19 History fluticasone propionate 2 spray INTRANASAL HS 11/14/18 05/08/19 History guaifenesin [Mucinex] 600 mg PO BID PRN 11/14/18 05/08/19 History levalbuterol HCl [Xopenex] 0.63 mg INHALATION QID PRN 11/14/18 05/08/19 History magnesium hydroxide [Milk of 30 ml PO .Q48H 11/14/18 05/08/19 History Magnesia] magnesium oxide 400 mg PO QPM 11/14/18 05/08/19 History melatonin 5 mg PO HS 11/14/18 05/08/19 History metoprolol tartrate 50 mg PO BID 11/14/18 05/08/19 History miscellaneous medical supply 11/14/18 03/06/19 History [Ocusoft Eyelid Cleansing Pads] [id number] 1,000 mg PO QAM 11/14/18 05/08/19 History [Airborne (lysine HCl)] [id number] 333 mg PO BID PRN 11/14/18 05/08/19 History [Airborne (ascorbate sodium)] nitroglycerin [Nitrostat] 0.4 mg SUBLINGUAL UD 11/14/18 05/08/19 History phenylephrine-witch susana 1 applic TOPICAL Q8H PRN 11/14/18 05/08/19 History [Preparation H(pe, witch susana)] ranitidine HCl 150 mg PO BID 11/14/18 05/08/19 History sennosides [senna] 8.6 mg PO 3XWK 11/14/18 05/08/19 History simethicone 80 mg PO TID PRN 11/14/18 05/08/19 History sodium chloride [Saline Nasal] 1 spray INTRANASAL Q6H PRN 11/14/18 05/08/19 History sodium phosphates [Fleet Enema] 118 ml GA Q72H 11/14/18 05/08/19 History wheat dextrin [Benefiber Sugar 3 g PO DAILY 11/14/18 05/08/19 History Free (dextrin)] witch susana [Tucks (witch susana)] 50 % TOPICAL Q8 PRN 11/14/18 05/08/19 History denosumab 60 mg/mL subcutaneous 60 mg SQ .COMPLEX ml 01/15/19 05/08/19 History syringe ascorbic acid (vitamin C) 500 mg 500 mg PO DAILY 01/29/19 05/08/19 History tablet amlodipine 2.5 mg tablet 2.5 mg PO DAILY 03/06/19 05/08/19 History Baby Shampoo 1 applic TOPICAL BID PRN 05/08/19 05/08/19 History fluticasone propion-salmeterol 1 inh INHALATION BID 05/08/19 05/08/19 History [Advair Diskus] hydrocortisone 1 applic TOPICAL BID PRN 05/08/19 05/08/19 History hydrocortisone 1 applic TOPICAL UD PRN MDD 14 05/08/19 05/08/19 History doses per month meclizine 25 mg PO TID PRN 05/08/19 05/08/19 History tramadol 25 mg PO Q4 PRN 05/08/19 05/08/19 History tramadol 25 mg PO QAM 05/08/19 05/08/19 History Patient History Medical History Atrial fibrillation (Acute) CAD (coronary artery disease) (Acute) CAD (coronary artery disease) (Chronic) Congestive heart failure Dementia Heart attack (Resolved) Myocardial infarction (Acute) Pulmonary embolism (Resolved) Vertigo Vision disturbance (Chronic) Surgical History H/O cardiac catheterization (Resolved) H/O heart surgery H/O lumpectomy History of tonsillectomy Status post breast lumpectomy Status post placement of cardiac pacemaker Stented coronary artery (Chronic) Family History Father Diabetes Brother Stroke Father Diabetes Brother Stroke syndrome Social History Preferred Language: Scottish Communication Ability: Effective 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 Beliefs That Will Affect Care: None marital status: / Current Living Situation: Personal Care Facility Feels Safe at Home: Yes Safety Concerns: Feels Safe At This Time Smoking Status: Never smoker Hx Alcohol Use: No Hx Substance Use: No Review of Systems Review of Systems: All systems reviewed & are unremarkable except as noted in HPI & below Constitutional: as per Subjective / HPI Physical Exam Physical Exam: LLE NVSI +EHL/FHL/TA/GS SILT grossly, +2 DP pulse, compartments soft NT, skin overlying left hip CDI, painful ROM Constitutional: WD/WN, vitals as above Results & Data Vital Signs (Past 12 Hours) Vital Signs Temp Pulse Pulse Resp BP BP Pulse Ox 05/08/19 16:13 66 05/08/19 15:09 36.9 C 67 17 134/75 91 05/08/19 06:38 36.7 C 70 16 175/92 H 96 05/08/19 06:00 107 H 19 162/82 H 99 05/08/19 05:30 66 14 176/92 H 98 Diagnostic Findings XR hip LT min 2V CLINICAL HISTORY: Left hip pain status post trauma COMPARISON: 11/14/2013 DISCUSSION: The bones are osteopenic. There is an acute subcapital left hip fracture. There is no dislocation IMPRESSION: Subcapital left hip fracture. XR femur LT 2V routine CLINICAL HISTORY: left hip fracture COMPARISON STUDY: Left hip 05/08/2019. FINDINGS: The bones are osteopenic. Redemonstration of the impacted left femoral subcapital neck fracture. No dislocation. No additional fractures within the mid to distal left femur. No significant knee effusion. IMPRESSION: 1. Redemonstration of the left femoral neck fracture. 2. No additional fractures identified within the mid to distal left femur. (1) Closed fracture of left hip Encounter type: initial encounter Qualified Code(s): S72.002A - Fracture of unspecified part of neck of left femur, initial encounter for closed fracture
--- NOTE | 2019-05-08 18:17 | Anesthesiology Consultation ---
Date of Service May 08, 2019 Assessment & Plan (1) Encounter for pre-operative examination: Chart Review Chart Review: Acceptable Risk for Surgery and Patient NOT seen in Pre Admission Testing Spoke to patient's son-in-law and patient's daughter (Mayuri [phone]) on the phone. We discussed the patient's medical history along with the anesthetic plan. Per the patient's daughter, the patient is on both Aspirin and Plavix and her last dose of each of these was 05/07/2019. Given that she would need to be off of Plavix for 7 days and eliquis for 72 hours prior to surgery, the plan will be a general anesthetic. Patient's daughter will be present tomorrow to sign consent as she is the POA. All questions were answered. Consults Requested none Teaching & Discussion Cardiology note 05/08/2019: (1) CAD (coronary artery disease): She has remote history of myocardial infarction. She is not currently having symptoms consistent with angina or coronary insufficiency. Her pe rcutaneous intervention was quite remote at this point it would seem reasonable to discontinue her Plavix to facilitate her operation. Control of her blood pressure, pulse, maintenance of good oxygenation and hemoglobin levels are standard recommendations in the perioperative period (2) Pacemaker: Normal device function. No arrhythmias identified with the exception of intermittent atrial fibrillation. Controlled ventricular rates. She is not pacemaker dependent no specific precautions are required in the intraoperative period. No reprogramming necessary. (3) Atrial fibrillation: She has intermittent episodes of atrial fibrillation which are not symptomatic. Overall ventricular rates appear to be well controlled. She has been maintained on systemic anticoagulation which can be interrupted to facilitate her surgery. Reinstitution of anticoagulation at the earliest oppor tunity postoperatively would be advisable. (4) Cardiomyopathy: This appears to be resolved on most recent echocardiogram. She does not describe symptoms consistent with decompensated heart failure. No findings on examination consistent with congestive heart failure. History Height/Weight Height: 5 ft 2 in Weight: 48.5 kg Allergies Allergy/AdvReac Type Severity Reaction Status Date / Time alendronate sodium Allergy Mild GI SYMPTOMS Verified 05/08/19 05:11 prednisone Allergy Unknown UNKOWN Verified 05/08/19 05:11 Medications Home Medications Medication Instructions Recorded Confirmed Last Taken Lactobacillus acidophilus 1 tab PO DAILY 11/14/18 05/08/19 Unknown acetaminophen [Tylenol] 650 mg PO TID PRN MDD 3g/24hr 11/14/18 05/08/19 Unknown albuterol sulfate 2 inh INHALATION Q6H PRN 11/14/18 05/08/19 Unknown apixaban [Eliquis] 2.5 mg PO BID 11/14/18 05/08/19 Unknown atorvastatin 20 mg PO QPM 11/14/18 05/08/19 Unknown bisacodyl [Dulcolax (bisacodyl)] 10 mg OK .Q48 PRN 11/14/18 05/08/19 Unknown cholecalciferol (vitamin D3) 2,000 unit PO QAM 11/14/18 05/08/19 Unknown [Vitamin D3] clopidogrel 75 mg PO QAM 11/14/18 05/08/19 Unknown diclofenac sodium [Voltaren] 4 g TOPICAL BID PRN 11/14/18 05/08/19 Unknown digoxin [Digox] 125 mcg PO QAM 11/14/18 05/08/19 Unknown fluticasone propionate 2 spray INTRANASAL HS 11/14/18 05/08/19 Unknown guaifenesin [Mucinex] 600 mg PO BID PRN 11/14/18 05/08/19 Unknown levalbuterol HCl [Xopenex] 0.63 mg INHALATION QID PRN 11/14/18 05/08/19 Unknown magnesium hydroxide [Milk of 30 ml PO .Q48H 11/14/18 05/08/19 Unknown Magnesia] magnesium oxide 400 mg PO QPM 11/14/18 05/08/19 Unknown melatonin 5 mg PO HS 11/14/18 05/08/19 Unknown metoprolol tartrate 50 mg PO BID 11/14/18 05/08/19 Unknown miscellaneous medical supply 11/14/18 03/06/19 Unknown [Ocusoft Eyelid Cleansing Pads] [id number] 1,000 mg PO QAM 11/14/18 05/08/19 Unknown [Airborne (lysine HCl)] [id number] 333 mg PO BID PRN 11/14/18 05/08/19 Unknown [Airborne (ascorbate sodium)] nitroglycerin [Nitrostat] 0.4 mg SUBLINGUAL UD 11/14/18 05/08/19 Unknown phenylephrine-witch susana 1 applic TOPICAL Q8H PRN 11/14/18 05/08/19 Unknown [Preparation H(pe, witch susana)] ranitidine HCl 150 mg PO BID 11/14/18 05/08/19 Unknown sennosides [senna] 8.6 mg PO 3XWK 11/14/18 05/08/19 Unknown simethicone 80 mg PO TID PRN 11/14/18 05/08/19 Unknown sodium chloride [Saline Nasal] 1 spray INTRANASAL Q6H PRN 11/14/18 05/08/19 Unknown sodium phosphates [Fleet Enema] 118 ml OK Q72H 11/14/18 05/08/19 Unknown wheat dextrin [Benefiber Sugar 3 g PO DAILY 11/14/18 05/08/19 Unknown Free (dextrin)] witch susana [Tucks (witch susana)] 50 % TOPICAL Q8 PRN 11/14/18 05/08/19 Unknown denosumab 60 mg/mL subcutaneous 60 mg SQ .COMPLEX ml 01/15/19 05/08/19 Unknown syringe ascorbic acid (vitamin C) 500 mg 500 mg PO DAILY 01/29/19 05/08/19 Unknown tablet amlodipine 2.5 mg tablet 2.5 mg PO DAILY 03/06/19 05/08/19 Unknown Baby Shampoo 1 applic TOPICAL BID PRN 05/08/19 05/08/19 Unknown fluticasone propion-salmeterol 1 inh INHALATION BID 05/08/19 05/08/19 Unknown [Advair Diskus] hydrocortisone 1 applic TOPICAL BID PRN 05/08/19 05/08/19 Unknown hydrocortisone 1 applic TOPICAL UD PRN MDD 14 05/08/19 05/08/19 Unknown doses per month meclizine 25 mg PO TID PRN 05/08/19 05/08/19 Unknown tramadol 25 mg PO Q4 PRN 05/08/19 05/08/19 Unknown tramadol 25 mg PO QAM 05/08/19 05/08/19 Unknown Active Medications Generic Name Dose Route Start Last Admin Trade Name Freq PRN Reason Stop Dose Admin Acetaminophen 650 mg 05/08/19 06:25 05/08/19 06:42 Tylenol PO 06/07/19 06:24 650 mg Q4H PRN Administration pain/fever Amlodipine Besylate 2.5 mg 05/08/19 09:00 05/08/19 08:05 Norvasc PO 06/07/19 08:59 2.5 mg DAILY ANGELINA Administration Digoxin 0.125 mg 05/08/19 16:00 05/08/19 16:13 Lanoxin PO 06/07/19 15:59 0.125 mg DAILY@1600 ANGELINA Administration Ceftriaxone Sodium 1,000 mg/ 50 mls @ 100 mls/hr 05/08/19 10:00 05/08/19 12:05 Dextrose IV 05/13/19 09:59 Infused Q24H ANGELINA Infusion Protocol Dextrose/Sodium Chloride 1,000 mls @ 50 mls/hr 05/08/19 13:00 05/08/19 15:26 D5w And 1/2nss IV 06/07/19 12:59 50 mls/hr .Q20H ANGELINA Infusion Metoprolol Tartrate 50 mg 05/08/19 09:00 05/08/19 08:05 Lopressor PO 06/07/19 08:59 50 mg BID ANGELINA Administration Morphine Sulfate 2 mg 05/08/19 08:59 05/08/19 13:32 Morphine Sulfate IV 05/22/19 08:58 2 mg Q2H PRN Administration Pain Fluticasone/Salmeterol 1 puffs 05/08/19 09:00 05/08/19 08:04 Advair Diskus 250/50 INH 06/07/19 08:59 1 puffs BID ANGELINA Administration Tramadol HCl 25 mg 05/08/19 05:38 05/08/19 06:43 Ultram PO 06/07/19 05:37 25 mg Q4 PRN Administration Pain NPO Date Last Intake of Fluids: 05/07/19 Date Last Intake of Solids: 05/07/19 Last Intake of Solids Comment: had pills with a few bites of pudding and a sip of H20 at 8am today Past Medical History Medical History Atrial fibrillation (Acute) CAD (coronary artery disease) (Acute) CAD (coronary artery disease) (Chronic) Congestive heart failure Dementia Heart attack (Resolved) Myocardial infarction (Acute) Pulmonary embolism (Resolved) Vertigo Vision disturbance (Chronic) Exercise / Class Metabolic Activity IV < 2 Limit ADL/Bedbound Past Family History Family History Father Diabetes Brother Stroke Father Diabetes Brother Stroke syndrome Past Surgical History Surgical History H/O cardiac catheterization (Resolved) H/O heart surgery H/O lumpectomy History of tonsillectomy Status post breast lumpectomy Status post placement of cardiac pacemaker Stented coronary artery (Chronic) Social History Smoking Status: Never smoker Do You Dip or Chew Tobacco: No Hx Alcohol Use: No Hx Substance Use: No Physical Exam Vital Signs Last Vital Signs Temp 36.9 C 05/08/19 15:09 Pulse 66 05/08/19 16:13 Resp 17 05/08/19 15:09 BP 134/75 05/08/19 15:09 Pulse Ox 91 05/08/19 15:09 Testing Laboratory Results 05/08/19 04:28 05/08/19 04:28 PT 10.6 Seconds (9.0-12.0) 05/08/19 04:28 INR 1.0 (0.9-1.1) 05/08/19 04:28 APTT 24.7 Seconds (21.0-31.0) 05/08/19 04:28 Urine Color Yellow 05/08/19 04:55 Urine Appearance Slightly Cloudy (Clear) 05/08/19 04:55 Urine pH 8.0 (4.5-7.5) H 05/08/19 04:55 Ur Specific [place] 1.010 (1.000-1.030) 05/08/19 04:55 Urine Protein Negative (Negative) 05/08/19 04:55 Urine Glucose (UA) Negative (Negative) 05/08/19 04:55 Urine Ketones Negative (Negative) 05/08/19 04:55 Urine Nitrite Positive (Negative) A 05/08/19 04:55 Ur Leukocyte Esterase Negative (Negative) 05/08/19 04:55 Urine RBC 0-4 /hpf (0-4) 05/08/19 04:55 Urine WBC 10-30 /hpf (0-5) H 05/08/19 04:55 Ur Epithelial Cells 0-5 /lpf (0-5) 05/08/19 04:55 Blood Type O Positive 05/08/19 04:47 Antibody Screen NEGATIVE 05/08/19 04:47 Electrocardiogram Date: 05/08/19 Findings: + NSR @ (70) Chest X-Ray Date: 05/08/19 XR chest 1V portable CLINICAL HISTORY: Chest pain status post trauma COMPARISON STUDY: 11/14/2018 FINDINGS: The cardiac and mediastinal contours remain stable. There is aortic tortuosity. There is a left subclavian dual-chamber central venous pacemaker. There is mild chronic interstitial thickening. There is no acute lobar co nsolidation. There are no pleural effusions. There is no overt failure. There is mild biapical pleural thickening. There is no pneumothorax.[ IMPRESSION: No active disease in the chest. Echocardiogram Date: 01/05/18 Echocardiogram performed 01/05/2018: Normal LV systolic function with an ejection fraction of 60-65 percent. Mild mitral regurgitation.
[2019-05-08] MEDS: ATORVASTATIN 20 MG TAB PO SCH (22:01)
--- NOTE | 2019-05-08 22:35 | Billing Data ---
Coding Level of Care Code 37105 Initial Inpt Care Lvl 3
[2019-05-09 07:06] LABS: Basophils # (auto) 0.01 K/uL (0-0.2); Basophils % (auto) 0.1 %; Eosinophils # (auto) 0.19 K/uL (0-0.5); Eosinophils % (auto) 2.6 %; Hematocrit (blood only) 42.7 % (37-47); Hemoglobin 14.3 g/dL (12.0-16.0); Immature Granulocytes # (auto) 0.03 K/uL (0.00-0.02); Immature Granulocytes % (auto) 0.4 %; Lymphocytes # (auto) 0.73 K/uL (1.2-3.4); Lymphocytes % (auto) 9.8 %; Mean Corpuscular Hemoglobin 31.4 pg (25-34); Mean Corpuscular Hgb Conc 33.5 g/dL (32-36); Mean Corpuscular Volume 93.6 fL (80-100); Mean Platelet Volume 9.2 fL (7.4-10.4); Monocytes # (auto) 0.95 K/uL (0.11-0.59); Monocytes % (auto) 12.8 %; Neutrophils # (auto) 5.54 K/uL (1.4-6.5); Neutrophils % (auto) 74.3 %; Platelet Count 132 K/uL (130-400); RDW Coefficient of Variation 13.7 % (11.5-14.5); RDW Standard Deviation 47.2 fL (36.4-46.3); Red Blood Count 4.56 M/uL (4.2-5.4); White Blood Count 7.45 K/uL (4.8-10.8)
[2019-05-09 07:32] LABS: BUN Creatinine Ratio 20.8 (10-20); Calcium 8.5 mg/dl (8.5-10.1); Creatinine Clr Calc Pharmacy 47.9 ml/min; Est GFR (African American) 93.2; Est GFR (Non-African American) 80.4; Potassium 3.8 mmol/L (3.5-5.1)
[2019-05-09] MEDS: MoRPHine SULFATE 2 MG/ML CARP IV PRN ×2 (07:42→17:35)
[2019-05-09] MEDS: METOPROLOL TARTRATE 50 MG TAB PO SCH ×3 (08:26→20:20)
[2019-05-09] MEDS: AMLODIPINE BESYLATE 5 MG TAB PO SCH (08:26)
[2019-05-09] MEDS: D5W AND 1/2NSS 1,000 ML IV SCH (08:35)
[2019-05-09] MEDS: FLUTICASONE/SALMETEROL 250/50 (ADVAIR) 14 PUFF/1 INHALER INH SCH ×2 (09:09→20:18)
[2019-05-09] MEDS: cefTRIAXone SODIUM 1,000 MG in DEXTROSE 5% 50 ML IV SCH (09:38)
[2019-05-09] MEDS ORDERED: fentaNYL citrate 100 MCG/2 ML VIAL ONE (12:36)
[2019-05-09] MEDS ORDERED: MIDAZOLAM HCL 1 MG/ML 2ML VIAL ONE (12:36)
[2019-05-09] MEDS ORDERED: DEXAMETHASONE SOD INJ 4 MG/ML VIAL ONE (12:38)
[2019-05-09] MEDS ORDERED: PROPOFOL IV EMULSION 10 MG/ML 20 ML VIAL IV ONE (12:38)
[2019-05-09] MEDS ORDERED: ONDANSETRON INJ 2 MG/ML 2 ML VIAL ONE (12:38)
--- NOTE | 2019-05-09 13:42 | History & Physical Bridge Note ---
Date of Service May 09, 2019 History & Physical Bridge Note I have examined the patient, reviewed the History & Physical and in the interval since the performance of the History & Physical I have noted the following changes of clinical significance: no changes noted Supervising Physician Co-Signing Physician Notes Patient was seen and examined by myself at bedside. During my face to face encounter, i obtained a history and physical examination. I later returned and discussed the case with the patient's daughter. My exam did not differ from above note. I agree with above note except for the following: Patient will be admitted to med/surg fr her subcapital fracture of her left femur. At the moment will limit her plavix and eliquis. May consider heparin infusion depending on when surgery will be held. Still awaiting input from ortho in regards to surgery. 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 The patient is known to Dr. Thompson and the [facility]. Daughter would like cardiology involved if we ultimately decide on switching her medications.
[2019-05-09] MEDS ORDERED: BUPIVACAINE/EPINEPHRINE 0.5% MPF 1:200,000 10 ML VIAL ONE (14:18)
[2019-05-09] MEDS ORDERED: BACITRACIN INJ 50,000 UNIT VIAL ONE (14:18)
[2019-05-09] MEDS ORDERED: LABETALOL HCL IV 5 MG/ML 20ML IV PRN (14:45)
[2019-05-09] MEDS ORDERED: ATROPINE SULFATE 0.1 MG/ML 10ML SYR IV PRN (14:45)
[2019-05-09] MEDS ORDERED: HYDROmorphone INJ 1 MG/ML SYRINGE IV PRN (14:45)
[2019-05-09] MEDS ORDERED: fentaNYL citrate 100 MCG/2 ML VIAL IV PRN (14:45)
[2019-05-09] MEDS ORDERED: ONDANSETRON INJ 2 MG/ML 2 ML VIAL IV PRN (14:45)
[2019-05-09] MEDS ORDERED: ePHEDrine sulfate 50 MG/ML AMP IV PRN (14:45)
[2019-05-09] MEDS ORDERED: PHENYLEPHRINE 100MCG/ML 5ML SYR IV PRN (14:45)
[2019-05-09] MEDS ORDERED: ROCURONIUM BROMIDE 10 MG/ML 5 ML VIAL ONE (14:47)
[2019-05-09] MEDS ORDERED: CEFAZOLIN 1000MG 1,000 MG/7.5 ML SYR IV SCH ×2 (15:15→15:30)
[2019-05-09] MEDS ORDERED: CEFAZOLIN 250 MG/ML 1 GM VIAL ONE (15:20)
[2019-05-09] MEDS ORDERED: PHENYLEPHRINE HCL 10 MG/ML VIAL ONE (15:20)
[2019-05-09] MEDS ORDERED: ePHEDrine sulfate 50 MG/ML AMP ONE (15:20)
[2019-05-09] MEDS ORDERED: NEOSTIGMINE METHYLSULFATE 5 MG/5 ML SYR ONE (15:24)
[2019-05-09] MEDS ORDERED: GLYCOPYRROLATE 0.2 MG/ML VIAL ONE (15:24)
--- NOTE | 2019-05-09 15:39 | Operative Report ---
Post Operative Report Pre & Post Diagnosis Operation Date: 05/09/19 14:40 Pre-Op Diagnosis: Closed fracture of left hip. Post-Op Diagnosis: Closed fracture of left hip. I identified the patient and participated in the time-out.: Yes Procedure Operation Date: 05/09/19 14:40 Actual Procedures p Left Hip Open Reduction Internal Fixation Cannulated Screws(Left) utilizing 7.3 cannulated screws times 370 mm x 1 short threaded 75 mm x 2 short threaded- German Starks DO Surgeon German Starks DO Operations Manager John CARDONA Estimated Blood Loss 10 Findings Consistent with Post-Op Diagnosis Patient presents with impacted subcapital fracture of the left hip for cannulated screw fixation device evaluation fluoroscopic cons was impacted sub- capital fracture left hip Specimens None Drains None Anesthesia Type General Complications none Disposition Accompanied Patient To Recovery: No Disposition: Recovery Room Indications Patient presents with a impacted subcapital fracture left hip Description of Procedure Initiation of general anesthesia the patient was socially placed in a well- padded protected fracture table the fracture was evaluated under fluoroscopic guidance and had been satisfactory line position both AP and lateral planes subsequently a 2 cm incision made over the region of the greater trochanteric region utilizing 7.3 cannulated guidewire screws 3 guidewires were placed utilizing 70 mm and 275 mm short threaded screws the fracture was maintained in excellent position both AP and lateral planes excellent decompression was noted wounds irrigated copious muscle sterile saline solution the deep fascia closed #1 Vicryl subcu was closed with 0 Vicryl skin was closed skin clips sterile compressive dressings placed patient was socially transferred to the recovery room bed patient neurologically intact. Please note John huitron was necessary prepping draping traction wound closure subcu skin was necessary for the case I attest to the content of the Intraoperative Record and any orders documented therein. Any exceptions are noted below.
--- NOTE | 2019-05-09 16:11 | Anesthesiology Progress Note ---
Date of Service May 09, 2019 Anesthesia Post Procedure Vital Signs Vital Signs: Temp Pulse Pulse Pulse Pulse Resp BP 05/09/19 16:05 72 14 05/09/19 15:55 73 15 05/09/19 15:45 73 16 05/09/19 15:38 37.4 C 78 14 05/09/19 12:20 37.4 C 71 18 138/87 05/09/19 07:55 37.8 C H 73 18 137/74 05/09/19 06:25 05/09/19 00:28 37.6 C H 77 16 127/72 05/08/19 21:52 84 130/68 05/08/19 16:13 66 BP Pulse Ox 05/09/19 16:05 176/80 H 94 05/09/19 15:55 178/81 H 97 05/09/19 15:45 167/77 H 98 05/09/19 15:38 172/79 H 99 05/09/19 12:20 94 05/09/19 07:55 92 05/09/19 06:25 92 05/09/19 00:28 92 05/08/19 21:52 05/08/19 16:13 Pain Intensity Left Head: Pain Intensity: 1 Left Leg: Pain Intensity: 1 Transfer of Care Handoff Completed per policy Notes Mental Status: alert / awake / arousable Patient Amnestic to Procedure: Yes Nausea / Vomiting: adequately controlled Pain: adequately controlled Airway Patency, RR, SpO2: stable & adequate BP & HR: stable & adequate Hydration State: stable & adequate Anesthetic Complications: no major complications apparent and Pt Satisfied with anesthetic care Notes: The patient is awake at her baseline. Her vitals are stable.
[2019-05-09] MEDS ORDERED: NALOXONE HCL 0.4 MG/1 ML VIAL/CARP IV PRN (16:57)
[2019-05-09] MEDS: DIGOXIN 0.125 MG TAB PO SCH (17:08)
[2019-05-09] MEDS ORDERED: COUGH DROP (SUGAR FREE) LOZ 24 LOZ/1 BOX BUCCAL PRN (17:43)
--- NOTE | 2019-05-09 17:45 | Hospitalist Progress Note ---
Date of Service May 09, 2019 Assessment & Plan (1) Hip fracture, left: Pt is an 88yo F PMH dementia, afib on eliquis, CAD s/p stent placement 2009, chronic systolic CHF (previous EF 35%, but then normalized 2017), SSS s/p pacemaker placement, h/o PE (on eliquis), chronic vertigo with excess falls and near-syncopal events admitted for acute L hip fracture. L hip fracture osteoporosis with current pathological fracture L hip -Ortho consulted, appreciate management-now s/p left hip ORIF -continue to hold eliquis/plavix and restart when ok with Ortho -Will need PT/OT -Head CT/Cervical spine CT no other fractures -DVT proph will be her Eliquis -pain control with morphine -follow CBC in AM -IVFs overnight -cepacol lozenges for sore throat from ETT Chronic systolic CHF-now resolved, was likely related to previous tachyarrhythmia -previous EF 35%, most recent now normal -monitor for volume overload -Continue home medications of metoprolol, digoxin Afib/SSS-in sinus rhythm here -On eliquis; held currently as above -Currently rate controlled. -Pacemaker in situ -continue metoprolol, digoxin CAD s/p stenting 2009 -holding home Plavix and restart when ok with Ortho -continue metoprolol, statin Dyspnea -Chronic; cont home inhalers Dementia -Watch for symptoms of delirium while in hospital Code: daughter would like pt to be a FULL CODE until she discusses further with her siblings as pt not able to make decisions. Advanced directive says DNR if in poor prognosis/end stage condition Dispo: continued stay DVTP: SCDs (2) Congestive heart failure: (3) Atrial fibrillation: (4) Stented coronary artery: (5) Dyspnea: (6) CAD (coronary artery disease): (7) Atrial flutter with rapid ventricular response: (8) Weakness: (9) Pre-syncope: (10) Dementia: (11) Dysphagia: (12) UTI (urinary tract infection): Subjective Pt just returned from surgery. Having a lot of pain in the left hip when moved. Is also c/o sore throat and even ice cream hurt her throat Review of Systems Review of Systems: All systems reviewed & are unremarkable except as noted in HPI & below Physical Exam Constitutional: + thin; no acute distress Eyes: + anicteric sclerae Neck: trachea midline, no thyromegaly Respiratory: normal respiratory effort, lungs clear to auscultation Cardiovascular: RRR, no murmur, no edema Chest (Breasts): Chest: normal inspection of chest Gastrointestinal (Abdomen): normal bowel sounds, soft, nontender, no hepatosplenomegaly Musculoskeletal: Extremities: + extremities abnormal to inspection (left hip with dressing in place, +TTP over left hip), no cyanosis and no clubbing Skin: no rashes, warm and dry Neurologic: moves all extremities and awake; no focal motor deficits Psychiatric: Orientation: alert, oriented to person and cooperative Genitourinary: Law in place Lymphatic: no lymphedema Results & Data Vital Signs (Past 12 Hours) Vital Signs Temp Pulse Pulse Pulse Resp BP BP 05/09/19 17:08 74 05/09/19 17:02 36.4 C L 74 16 157/78 H 05/09/19 16:45 36.8 C 78 16 169/80 H 05/09/19 16:30 78 16 166/97 H 05/09/19 16:15 72 15 166/97 H 05/09/19 16:05 36.5 C 72 14 176/80 H 05/09/19 15:55 73 15 178/81 H 05/09/19 15:45 73 16 167/77 H 05/09/19 15:38 37.4 C 78 14 172/79 H 05/09/19 12:20 37.4 C 71 18 138/87 05/09/19 07:55 37.8 C H 73 18 137/74 05/09/19 06:25 Pulse Ox 05/09/19 17:08 05/09/19 17:02 94 05/09/19 16:45 92 05/09/19 16:30 95 05/09/19 16:15 96 05/09/19 16:05 94 05/09/19 15:55 97 05/09/19 15:45 98 05/09/19 15:38 99 05/09/19 12:20 94 05/09/19 07:55 92 05/09/19 06:25 92 Laboratory Results labs reviewed, stable PG Care Time/CCT Total # of Minutes Spent Total Time Spent with Patient: Total time spent is greater than 50% in coordination of care (as documented) at patient's floor/unit and/or counseling patient:
[2019-05-09] MEDS: ATORVASTATIN 20 MG TAB PO SCH (20:22)
[2019-05-09] MEDS: CEFAZOLIN 1000MG 1,000 MG/7.5 ML SYR IV SCH (22:03)
[2019-05-10] MEDS: MoRPHine SULFATE 2 MG/ML CARP IV PRN (03:26)
[2019-05-10] MEDS: CEFAZOLIN 1000MG 1,000 MG/7.5 ML SYR IV SCH (05:09)
[2019-05-10 06:35] LABS: Eosinophils # (auto) 0.02 K/uL (0-0.5); Eosinophils % (auto) 0.2 %; Hematocrit (blood only) 39.4 % (37-47); Hemoglobin 13.1 g/dL (12.0-16.0); Immature Granulocytes # (auto) 0.03 K/uL (0.00-0.02); Immature Granulocytes % (auto) 0.3 %; Lymphocytes # (auto) 0.46 K/uL (1.2-3.4); Mean Corpuscular Hemoglobin 31.4 pg (25-34); Mean Corpuscular Hgb Conc 33.2 g/dL (32-36); Mean Corpuscular Volume 94.5 fL (80-100); Mean Platelet Volume 9.2 fL (7.4-10.4); Monocytes # (auto) 0.98 K/uL (0.11-0.59); Monocytes % (auto) 10.8 %; Neutrophils # (auto) 7.62 K/uL (1.4-6.5); Neutrophils % (auto) 83.7 %; Platelet Count 134 K/uL (130-400); RDW Coefficient of Variation 13.3 % (11.5-14.5); RDW Standard Deviation 45.9 fL (36.4-46.3); Red Blood Count 4.17 M/uL (4.2-5.4); White Blood Count 9.11 K/uL (4.8-10.8)
[2019-05-10 07:16] LABS: Calcium 7.9 mg/dl (8.5-10.1); Creatinine Clr Calc Pharmacy 56.2 ml/min; Est GFR (African American) 98.2; Est GFR (Non-African American) 84.7; Potassium 4.2 mmol/L (3.5-5.1)
--- NOTE | 2019-05-10 08:01 | Orthopedic Progress Note ---
Date of Service May 10, 2019 Assessment & Plan (1) Hip fracture, left: pod #1 s/p Left Hip Open Reduction Internal Fixation Cannulated Screws(Left) utilizing 7.3 cannulated screws NWB left leg ice left hip can resume her anticoagulants today as per medicine Subjective POD #1 s/p Left Hip Open Reduction Internal Fixation Cannulated Screws(Left) utilizing 7.3 cannulated screws Review of Systems Constitutional: no fever and no chills Respiratory: no cough and no dyspnea Cardiovascular: no chest pain Physical Exam Physical Exam: Vital Signs Temp 36.7 C 05/10/19 07:38 Pulse 64 05/10/19 07:38 Resp 16 05/10/19 07:38 BP 157/78 H 05/10/19 07:38 Pulse Ox 99 05/10/19 07:38 Intake & Output 05/09/19 05/10/19 05/10/19 18:59 06:59 18:59 Intake Total 879.167 / 1346.667 467.5 / 1346.667 Output Total 310 / 760 450 / 760 Balance 569.167 / 586.667 17.5 / 586.667 Weight 48.5 kg Intake: IV 379.167 / 646.667 267.5 / 646.667 D5w and 1/2Nss 1,000 ml @ 50 329.167 / 596.667 267.5 / 596.667 mls/hr IV .Q20 H ANGELINA Rx#: [id number] Rocephin 1,000 mg In D5w 50 ml 50 / 50 @ 100 mls/hr I V Q24H ANGELINA Rx#: [id number] IV Perioperative 500 / 500 Oral 200 / 200 Output: Estimated Blood Loss 10 / 10 Urine Amount (Ca theter) 300 / 750 450 / 750 Law/Indwelli ng 300 / 750 450 / 750 Musculoskeletal: left hip: dressing clean and dry. tender through thigh as expected. calf SNT. able to wiggle toes/ankle without pain Results & Data Vital Signs (Past 12 Hours) Vital Signs Temp Pulse Pulse Resp BP Pulse Ox 05/10/19 07:38 36.7 C 64 16 157/78 H 99 05/10/19 03:07 36.8 C 68 15 153/83 H 99 05/09/19 23:48 36.9 C 75 16 131/78 98 05/09/19 20:16 79 123/76 98 Laboratory Results Laboratory Results WBC 9.11 K/uL (4.8-10.8) 05/10/19 06:19 RBC 4.17 M/uL (4.2-5.4) L 05/10/19 06:19 Hgb 13.1 g/dL (12.0-16.0) 05/10/19 06:19 Hct 39.4 % (37-47) 05/10/19 06:19 MCV 94.5 fL (80-100) 05/10/19 06:19 MCH 31.4 pg (25-34) 05/10/19 06:19 MCHC 33.2 g/dL (32-36) 05/10/19 06:19 RDW Std Deviation 45.9 fL (36.4-46.3) 05/10/19 06:19 RDW Coeff of Oleg 13.3 % (11.5-14.5) 05/10/19 06:19 Plt Count 134 K/uL (130-400) 05/10/19 06:19 MPV 9.2 fL (7.4-10.4) 05/10/19 06:19 Immature Gran % (Auto) 0.3 % 05/10/19 06:19 Neut % (Auto) 83.7 % 05/10/19 06:19 Lymph % (Auto) 5.0 % 05/10/19 06:19 [place] % (Auto) 10.8 % 05/10/19 06:19 Eos % (Auto) 0.2 % 05/10/19 06:19 Baso % (Auto) 0.0 % 05/10/19 06:19 Immature Gran # (Auto) 0.03 K/uL (0.00-0.02) H 05/10/19 06:19 Neut # (Auto) 7.62 K/uL (1.4-6.5) H 05/10/19 06:19 Lymph # (Auto) 0.46 K/uL (1.2-3.4) L 05/10/19 06:19 [place] # (Auto) 0.98 K/uL (0.11-0.59) H 05/10/19 06:19 Eos # (Auto) 0.02 K/uL (0-0.5) 05/10/19 06:19 Baso # (Auto) 0.00 K/uL (0-0.2) 05/10/19 06:19 PT 10.6 Seconds (9.0-12.0) 05/08/19 04:28 INR 1.0 (0.9-1.1) 05/08/19 04:28 APTT 24.7 Seconds (21.0-31.0) 05/08/19 04:28 PTT Ratio 0.9 05/08/19 04:28 Sodium 135 mmol/L (136-145) L 05/10/19 06:19 Potassium 4.2 mmol/L (3.5-5.1) 05/10/19 06:19 Chloride 104 mmol/L (98-107) 05/10/19 06:19 Carbon Dioxide 26 mmol/L (21-32) 05/10/19 06:19 Anion Gap 5.0 (3-11) 05/10/19 06:19 BUN 12 mg/dl (7-18) 05/10/19 06:19 Creatinine 0.52 mg/dl (0.6-1.2) L 05/10/19 06:19 Est Cr Clr Drug Dosing 56.2 ml/min 05/10/19 06:19 Est GFR ( Amer) 98.2 05/10/19 06:19 Est GFR (Non-Af Amer) 84.7 05/10/19 06:19 BUN/Creatinine Ratio 23.0 (10-20) H 05/10/19 06:19 Glucose 139 mg/dl (70-99) H 05/10/19 06:19 Calcium 7.9 mg/dl (8.5-10.1) L 05/10/19 06:19 Urine Color Yellow 05/08/19 04:55 Urine Appearance Slightly Cloudy (Clear) 05/08/19 04:55 Urine pH 8.0 (4.5-7.5) H 05/08/19 04:55 Ur Specific [place] 1.010 (1.000-1.030) 05/08/19 04:55 Urine Protein Negative (Negative) 05/08/19 04:55 Urine Glucose (UA) Negative (Negative) 05/08/19 04:55 Urine Ketones Negative (Negative) 05/08/19 04:55 Urine Blood Negative (Negative) 05/08/19 04:55 Urine Nitrite Positive (Negative) A 05/08/19 04:55 Urine Bilirubin Negative (Negative) 05/08/19 04:55 Urine Urobilinogen Negative (Negative) 05/08/19 04:55 Ur Leukocyte Esterase Negative (Negative) 05/08/19 04:55 Urine RBC 0-4 /hpf (0-4) 05/08/19 04:55 Urine WBC 10-30 /hpf (0-5) H 05/08/19 04:55 Ur Epithelial Cells 0-5 /lpf (0-5) 05/08/19 04:55 Urine Bacteria 2+ (Negative) H 05/08/19 04:55 Blood Type O Positive 05/08/19 04:47 Antibody Screen NEGATIVE 05/08/19 04:47
[2019-05-10] MEDS: METOPROLOL TARTRATE 50 MG TAB PO SCH ×2 (08:39→20:02)
[2019-05-10] MEDS: ACETAMINOPHEN 325 MG TAB PO PRN ×3 (08:40→21:48)
[2019-05-10] MEDS: AMLODIPINE BESYLATE 5 MG TAB PO SCH (08:40)
[2019-05-10] MEDS: FLUTICASONE/SALMETEROL 250/50 (ADVAIR) 14 PUFF/1 INHALER INH SCH ×2 (08:40→20:00)
[2019-05-10] MEDS: cefTRIAXone SODIUM 1,000 MG in DEXTROSE 5% 50 ML IV SCH (09:48)
[2019-05-10] MEDS: CLOPIDOGREL BISULFATE 75 MG TAB PO SCH (12:56)
[2019-05-10] MEDS: D5W AND 1/2NSS 1,000 ML IV SCH (14:12)
--- NOTE | 2019-05-10 14:40 | Anesthesiology Progress Note ---
Date of Service May 10, 2019 Anesthesia Post Procedure Vital Signs Vital Signs: Temp Pulse Pulse Pulse Pulse Resp BP 05/10/19 12:21 36.5 C 67 16 113/66 05/10/19 11:40 05/10/19 07:38 36.7 C 64 16 157/78 H 05/10/19 03:07 36.8 C 68 15 153/83 H 05/09/19 23:48 36.9 C 75 16 131/78 05/09/19 20:16 79 123/76 05/09/19 19:58 36.8 C 77 17 132/79 05/09/19 18:48 36.8 C 78 17 137/80 05/09/19 17:44 36.3 C L 80 16 164/83 H 05/09/19 17:08 74 05/09/19 17:02 36.4 C L 74 16 157/78 H 05/09/19 16:45 36.8 C 78 16 169/80 H 05/09/19 16:30 78 16 166/97 H 05/09/19 16:15 72 15 166/97 H 05/09/19 16:05 36.5 C 72 14 176/80 H 05/09/19 15:55 73 15 178/81 H 05/09/19 15:45 73 16 167/77 H 05/09/19 15:38 37.4 C 78 14 172/79 H Pulse Ox 05/10/19 12:21 91 05/10/19 11:40 97 05/10/19 07:38 99 05/10/19 03:07 99 05/09/19 23:48 98 05/09/19 20:16 98 05/09/19 19:58 97 05/09/19 18:48 97 05/09/19 17:44 94 05/09/19 17:08 05/09/19 17:02 94 05/09/19 16:45 92 05/09/19 16:30 95 05/09/19 16:15 96 05/09/19 16:05 94 05/09/19 15:55 97 05/09/19 15:45 98 05/09/19 15:38 99 Pain Intensity Left Head: Pain Intensity: 1 Left Leg: Pain Intensity: 1 Notes Mental Status: alert / awake / arousable and participated in evaluation Patient Amnestic to Procedure: Yes Nausea / Vomiting: adequately controlled Pain: adequately controlled Airway Patency, RR, SpO2: stable & adequate BP & HR: stable & adequate Hydration State: stable & adequate Anesthetic Complications: no major complications apparent and Pt Satisfied with anesthetic care
[2019-05-10] MEDS: DIGOXIN 0.125 MG TAB PO SCH (15:12)
[2019-05-10] MEDS ORDERED: TEMAZEPAM 7.5 MG CAPSULE PO PRN (17:23)
[2019-05-10] MEDS ORDERED: ARTIFICIAL TEARS OP PRN (17:24)
--- NOTE | 2019-05-10 17:32 | Hospitalist Progress Note ---
Date of Service May 10, 2019 Assessment & Plan (1) Hip fracture, left: Pt is an 88yo F PMH dementia, afib on eliquis, CAD s/p stent placement 2009, chronic systolic CHF (previous EF 35%, but then normalized 2018), SSS s/p pacemaker placement, h/o PE (on eliquis), chronic vertigo with excess falls and near-syncopal events admitted for acute L hip fracture. L hip fracture Osteoporosis with current pathological fracture L hip -Ortho consulted, appreciate management-now POD#1 s/p left hip ORIF -Ok to restart Eliquis/plavix today which also serves as her DVT proph -Will need PT/OT evals -Head CT/Cervical spine CT no other fractures in fall -pain control with morphine, tylenol, po tramadol -Hgb with only minimal drop from admission and remains in normal range, no transfusion needed -follow CBC in AM -dcd IVFs (2) Congestive heart failure: Chronic systolic CHF-now resolved, was likely related to previous tachyarrhythmia -previous EF 35%, most recent now normal -monitor for volume overload-none so far -Continue home medications of metoprolol, digoxin -dcd IVFs (3) Atrial fibrillation: Afib/SSS-continues in sinus rhythm here -Restarted eliquis -Pacemaker in situ -continue metoprolol, digoxin (4) CAD (coronary artery disease): CAD s/p stenting 2009 No chest pain or acute issues -restart home Plavix -continue metoprolol, statin (5) Stented coronary artery: as above (6) Dyspnea: Dyspnea -Chronic; cont home inhalers (7) Pre-syncope: With a h/o such Is not what led to this fall--> this fall was suspected to be from poor vision and mechanical fall Pacer interrogated and no arrhythmias at time of fall (8) Dementia: [id number] -supportive care (9) UTI (urinary tract infection): With abnormal UA on arrival, Ur cx growing Klebsiella pneumoniae, pansens except intermediate to nitrofurantoin -continue Rocephin and convert to po abx tomorrow with keflex to finish out 7 day course (10) Underweight: BMI 19.6 -consult dietary for recommendations on improved nutrition-- recommend Boost Vanilla bid (11) Insomnia: Daughter requesting tempazepam for prn use-pt was on this for 2 years and recently stopped it and started melatonin -no melatonin available here--> she will bring in from home but in meantime requesting Restoril prn (12) DVT prophylaxis: Code: daughter would like pt to be a FULL CODE until she discusses further with her siblings as pt not able to make decisions. Advanced directive says DNR if in poor prognosis/end stage condition Dispo: continued stay, will need rehab placement back at [facility] likely in 2-3 days DVTP: SCDs , Eliquis Subjective Pt feeling well, much improved. Pain is controlled with tylenol alone. She is eating well, drinking, urinating on own after Law removed, no BM yet. No chest pain or SOB. Has watery discharge from chronic right eye lid droop- requesitng lid scrubs with baby shampoo and tear drops Requesting something for sleep as oer daughter Very cooperative today, mentally clear as per daughter Review of Systems Review of Systems: All systems reviewed & are unremarkable except as noted in HPI & below Physical Exam Constitutional: + thin; no acute distress Eyes: + anicteric sclerae Neck: trachea midline, no thyromegaly Respiratory: normal respiratory effort, lungs clear to auscultation Cardiovascular: RRR, no murmur, no edema Chest (Breasts): Chest: normal inspection of chest Gastrointestinal (Abdomen): normal bowel sounds, soft, nontender, no hepatosplenomegaly Musculoskeletal: Extremities: + extremities abnormal to inspection (left hip with dressing in place, +TTP over left hip), no cyanosis and no clubbing Skin: no rashes, warm and dry Neurologic: moves all extremities and awake; no focal motor deficits Psychiatric: Orientation: alert, oriented to person and cooperative Lymphatic: no lymphedema Results & Data Vital Signs (Past 12 Hours) Vital Signs Temp Pulse Pulse Resp BP BP Pulse Ox 05/10/19 15:12 67 05/10/19 15:09 36.7 C 67 17 126/64 92 05/10/19 12:21 36.5 C 67 16 113/66 91 05/10/19 11:40 97 05/10/19 07:38 36.7 C 64 16 157/78 H 99 Laboratory Results 05/10/19 05/10/19 Range/Units 06:19 06:19 WBC 9.11 (4.8-10.8) K/uL RBC 4.17 L (4.2-5.4) M/uL Hgb 13.1 (12.0-16.0) g/dL Hct 39.4 (37-47) % MCV 94.5 (80-100) fL MCH 31.4 (25-34) pg MCHC 33.2 (32-36) g/dL RDW Std Deviation 45.9 (36.4-46.3) fL RDW Coeff of Oleg 13.3 (11.5-14.5) % Plt Count 134 (130-400) K/uL MPV 9.2 (7.4-10.4) fL Immature Gran % (Auto) 0.3 % Neut % (Auto) 83.7 % Lymph % (Auto) 5.0 % [place] % (Auto) 10.8 % Eos % (Auto) 0.2 % Baso % (Auto) 0.0 % Immature Gran # (Auto) 0.03 H (0.00-0.02) K/uL Neut # (Auto) 7.62 H (1.4-6.5) K/uL Lymph # (Auto) 0.46 L (1.2-3.4) K/uL [place] # (Auto) 0.98 H (0.11-0.59) K/uL Eos # (Auto) 0.02 (0-0.5) K/uL Baso # (Auto) 0.00 (0-0.2) K/uL Sodium 135 L (136-145) mmol/L Potassium 4.2 (3.5-5.1) mmol/L Chloride 104 (98-107) mmol/L Carbon Dioxide 26 (21-32) mmol/L Anion Gap 5.0 (3-11) BUN 12 (7-18) mg/dl Creatinine 0.52 L (0.6-1.2) mg/dl Est Cr Clr Drug Dosing 56.2 ml/min Est GFR ( Amer) 98.2 Est GFR (Non-Af Amer) 84.7 BUN/Creatinine Ratio 23.0 H (10-20) Glucose 139 H (70-99) mg/dl Calcium 7.9 L (8.5-10.1) mg/dl PG Care Time/CCT Total # of Minutes Spent Total Time Spent with Patient: Total time spent is greater than 50% in coordination of care (as documented) at patient's floor/unit and/or counseling patient:
[2019-05-10] MEDS: FLUTICASONE PROPIONATE NA SPR 16 GM BTL NAE SCH (20:01)
[2019-05-10] MEDS: MAGNESIUM OXIDE 400 MG TAB PO SCH (20:02)
[2019-05-10] MEDS: ATORVASTATIN 20 MG TAB PO SCH (20:02)
[2019-05-10] MEDS: SENNA 8.6 MG TAB PO SCH (20:02)
[2019-05-10] MEDS: APIXABAN 2.5 MG TAB PO SCH (20:02)
[2019-05-10] MEDS: TRAMADOL HCL 50 MG TABLET PO PRN (23:34)
[2019-05-11] MEDS: TRAMADOL HCL 50 MG TABLET PO PRN (04:16)
--- NOTE | 2019-05-11 07:23 | Orthopedic Progress Note ---
Date of Service May 11, 2019 Assessment & Plan (1) Hip fracture, left: pod #2 s/p Left Hip Open Reduction Internal Fixation Cannulated Screws(Left) utilizing 7.3 cannulated screws NWB left leg ice left hip as per medicine Subjective POD #2 some confusion this am, she is aware that she is in the hospital, but continues to say that she isn't sure what is going on. Physical Exam Physical Exam: Vital Signs Temp 36.6 C 05/10/19 22:54 Pulse 64 05/10/19 22:54 Resp 16 05/10/19 22:54 BP 132/68 05/10/19 22:54 Pulse Ox 92 05/10/19 22:54 Intake & Output 05/10/19 05/11/19 05/11/19 18:59 06:59 18:59 Intake Total 1035.833 / 1035.83 3 Output Total 525 / 525 Balance 510.833 / 510.833 Intake: IV 605.833 / 605.833 D5w and 1/2Nss 1,000 ml @ 50 555.833 / 555.833 mls/hr IV .Q20 H ANGELINA Rx#: [id number] Rocephin 1,000 mg In D5w 50 ml 50 / 50 @ 100 mls/hr I V Q24H ANGELINA Rx#: [id number] Oral 430 / 430 Output: Urine 300 / 300 Urine Amount (Ca theter) 225 / 225 Law/Indwelli ng 225 / 225 Other: # Unmeasured Voi ds 1 Constitutional: no acute distress Musculoskeletal: Left Hip: incision is clean and dry, mild tenderness anterior thigh, calf SNT, able to wiggle her toes/ankle. Results & Data Vital Signs (Past 12 Hours) Vital Signs Temp Pulse Resp BP Pulse Ox 05/10/19 22:54 36.6 C 64 16 132/68 92 05/10/19 19:58 71 154/74 H
[2019-05-11] MEDS: FLUTICASONE/SALMETEROL 250/50 (ADVAIR) 14 PUFF/1 INHALER INH SCH ×2 (08:46→20:44)
[2019-05-11] MEDS: ACETAMINOPHEN 325 MG TAB PO PRN ×2 (08:47→20:48)
[2019-05-11] MEDS: METOPROLOL TARTRATE 50 MG TAB PO SCH ×2 (08:48→20:41)
[2019-05-11] MEDS: APIXABAN 2.5 MG TAB PO SCH ×2 (08:48→20:43)
[2019-05-11] MEDS: ATORVASTATIN 20 MG TAB PO SCH (08:48)
[2019-05-11] MEDS: CLOPIDOGREL BISULFATE 75 MG TAB PO SCH (08:49)
[2019-05-11] MEDS: ASCORBIC ACID 500 MG TAB PO SCH (08:49)
[2019-05-11] MEDS: AMLODIPINE BESYLATE 5 MG TAB PO SCH (08:49)
[2019-05-11] MEDS: CHOLECALCIFEROL 1,000 UNITS TAB PO SCH (08:50)
[2019-05-11] MEDS: cefTRIAXone SODIUM 1,000 MG in DEXTROSE 5% 50 ML IV SCH (10:04)
[2019-05-11 12:21] LABS: Basophils # (auto) 0.02 K/uL (0-0.2); Basophils % (auto) 0.2 %; Eosinophils # (auto) 0.52 K/uL (0-0.5); Eosinophils % (auto) 5.8 %; Hematocrit (blood only) 42.4 % (37-47); Hemoglobin 14.1 g/dL (12.0-16.0); Immature Granulocytes # (auto) 0.04 K/uL (0.00-0.02); Immature Granulocytes % (auto) 0.4 %; Lymphocytes # (auto) 0.75 K/uL (1.2-3.4); Lymphocytes % (auto) 8.4 %; Mean Corpuscular Hemoglobin 31.1 pg (25-34); Mean Corpuscular Hgb Conc 33.3 g/dL (32-36); Mean Corpuscular Volume 93.4 fL (80-100); Mean Platelet Volume 9.3 fL (7.4-10.4); Monocytes # (auto) 1.52 K/uL (0.11-0.59); Monocytes % (auto) 17.1 %; Neutrophils # (auto) 6.05 K/uL (1.4-6.5); Neutrophils % (auto) 68.1 %; Platelet Count 179 K/uL (130-400); RDW Coefficient of Variation 13.4 % (11.5-14.5); RDW Standard Deviation 45.8 fL (36.4-46.3); Red Blood Count 4.54 M/uL (4.2-5.4)
[2019-05-11 12:50] LABS: BUN Creatinine Ratio 24.3 (10-20); Calcium 9.2 mg/dl (8.5-10.1); Creatinine Clr Calc Pharmacy 50.3 ml/min; Est GFR (African American) 94.7; Est GFR (Non-African American) 81.7
--- NOTE | 2019-05-11 14:15 | Fluoroscopy Report ---
FL hip LT 2-3V CLINICAL HISTORY: ORIF of left hip with cannulated screws COMPARISON STUDY: None FLUOROSCOPY TIME: 17 seconds NUMBER OF FLUOROSCOPIC IMAGES: 2 FINDINGS: Findings consistent placement of Jewell pins traversing the left femoral neck. Alignment i s anatomic. IMPRESSION: Image intensifier usage for left hip pinning as discussed. The above report was generated using voice recognition software. It may contain grammatical, syntax or spelling errors. Electronically signed by: Malcolm Sweeney M.D. 05/11/2019 2:13 PM
[2019-05-11] MEDS: DIGOXIN 0.125 MG TAB PO SCH (16:21)
--- NOTE | 2019-05-11 20:09 | Hospitalist Progress Note ---
Date of Service May 11, 2019 Assessment & Plan (1) Hip fracture, left: Pt is an 88yo F PMH dementia, afib on eliquis, CAD s/p stent placement 2009, chronic systolic CHF (previous EF 35%, but then normalized 2018), SSS s/p pacemaker placement, h/o PE (on eliquis), chronic vertigo with excess falls and near-syncopal events admitted for acute L hip fracture. L hip fracture Osteoporosis with current pathological fracture L hip -Ortho consulted, appreciate management-now POD#2 s/p left hip ORIF -Continue Eliquis as her DVT proph -Continue PT/OT-plan for rehab after discharge -Head CT/Cervical spine CT no other fractures in fall -pain control with morphine, tylenol, po tramadol -Hgb with only minimal drop from admission and remains in normal range, no transfusion needed -follow CBC in AM Doing well We will give morphine for pain at bedtime which will also help with sleep as per daughter's request (2) Congestive heart failure: Chronic systolic CHF-now resolved, was likely related to previous tachyarrhythmia -previous EF 35%, most recent now normal -monitor for volume overload-none so far -Continue home medications of metoprolol, digoxin (3) Atrial fibrillation: Afib/SSS-was in sinus rhythm here, but now examines to be in an irregularly irregular rhythm but with rate control. Interrogation of her pacer prior to surgery shows that she does have periods of atrial fibrillation which are asymptomatic and rate controlled -Continue Eliquis -Pacemaker in situ -continue metoprolol, digoxin (4) CAD (coronary artery disease): CAD s/p stenting 2009 No chest pain or acute issues -Continue home Plavix -continue metoprolol, statin (5) Stented coronary artery: as above (6) Dyspnea: Dyspnea -Chronic; cont home inhalers (7) Pre-syncope: With a h/o such Is not what led to this fall--> this fall was suspected to be from poor vision and mechanical fall Pacer interrogated and no arrhythmias at time of fall (8) Dementia: [id number] -supportive care (9) UTI (urinary tract infection): With abnormal UA on arrival, Ur cx growing Klebsiella pneumoniae, pansens except intermediate to nitrofurantoin -continue Rocephin and convert to po abx with keflex to finish out 7 day course (10) Underweight: BMI 19.6 -consult dietary for recommendations on improved nutrition-- recommend Boost Vanilla bid (11) Insomnia: Daughter previously requested tempazepam for prn use-pt was on this for 2 years and recently stopped it and started melatonin -no melatonin available here--> she will bring in from home Restoril seem to make her agitated as per daughter -We will just work on good pain control perhaps with morphine tonight for sleep (12) DVT prophylaxis: Code: daughter would like pt to be a FULL CODE until she discusses further with her siblings as pt not able to make decisions. Advanced directive says DNR if in poor prognosis/end stage condition Dispo: continued stay, will need rehab placement back at [facility] possibly tomorrow DVTP: SCDs , Eliquis Subjective Patient was unable to sleep last night due to pain and seemed agitated as per daughter after receiving temazepam. Tramadol did not help with her pain. When I saw the patient this evening, she was very pleasant and sitting at the bedside chair and conversing with a friend and her son-in-law. She was having some nausea earlier which is now resolved. Denies shortness of breath. Review of Systems Review of Systems: Unobtainable due to cognitive status Physical Exam Constitutional: + thin; no acute distress Eyes: + anicteric sclerae Neck: trachea midline, no thyromegaly Respiratory: normal respiratory effort, lungs clear to auscultation Cardiovascular: Rate/Rhythm: regular rate and + irregularly irregular Heart Sounds: no murmur Extremities: no edema Chest (Breasts): Chest: normal inspection of chest Gastrointestinal (Abdomen): normal bowel sounds, soft, nontender, no hepatosplenomegaly Musculoskeletal: Extremities: + extremities abnormal to inspection (left hip with dressing in place, +TTP over left hip), no cyanosis and no clubbing Skin: no rashes, warm and dry Neurologic: moves all extremities and awake; no focal motor deficits Psychiatric: Orientation: alert, oriented to person and cooperative Lymphatic: no lymphedema Results & Data Vital Signs (Past 12 Hours) Vital Signs Temp Pulse Pulse Resp BP Pulse Ox 05/11/19 16:21 98 H 05/11/19 16:19 36.7 C 98 H 15 174/95 H 92 Laboratory Results 05/11/19 05/11/19 Range/Units 12:08 12:08 WBC 8.90 (4.8-10.8) K/uL RBC 4.54 (4.2-5.4) M/uL Hgb 14.1 (12.0-16.0) g/dL Hct 42.4 (37-47) % MCV 93.4 (80-100) fL MCH 31.1 (25-34) pg MCHC 33.3 (32-36) g/dL RDW Std Deviation 45.8 (36.4-46.3) fL RDW Coeff of Oleg 13.4 (11.5-14.5) % Plt Count 179 (130-400) K/uL MPV 9.3 (7.4-10.4) fL Immature Gran % (Auto) 0.4 % Neut % (Auto) 68.1 % Lymph % (Auto) 8.4 % [place] % (Auto) 17.1 % Eos % (Auto) 5.8 % Baso % (Auto) 0.2 % Immature Gran # (Auto) 0.04 H (0.00-0.02) K/uL Neut # (Auto) 6.05 (1.4-6.5) K/uL Lymph # (Auto) 0.75 L (1.2-3.4) K/uL [place] # (Auto) 1.52 H (0.11-0.59) K/uL Eos # (Auto) 0.52 H (0-0.5) K/uL Baso # (Auto) 0.02 (0-0.2) K/uL Sodium 134 L (136-145) mmol/L Potassium 4.0 (3.5-5.1) mmol/L Chloride 101 (98-107) mmol/L Carbon Dioxide 27 (21-32) mmol/L Anion Gap 6.0 (3-11) BUN 14 (7-18) mg/dl Creatinine 0.58 L (0.6-1.2) mg/dl Est Cr Clr Drug Dosing 50.3 ml/min Est GFR ( Amer) 94.7 Est GFR (Non-Af Amer) 81.7 BUN/Creatinine Ratio 24.3 H (10-20) Glucose 103 H (70-99) mg/dl Calcium 9.2 D (8.5-10.1) mg/dl PG Care Time/CCT Total # of Minutes Spent Total Time Spent with Patient: Total time spent is greater than 50% in coordination of care (as documented) at patient's floor/unit and/or counseling patient:
[2019-05-11] MEDS: MAGNESIUM OXIDE 400 MG TAB PO SCH (20:44)
[2019-05-11] MEDS: FLUTICASONE PROPIONATE NA SPR 16 GM BTL NAE SCH (20:44)
[2019-05-11] MEDS: SENNA 8.6 MG TAB PO SCH (20:44)
[2019-05-11] MEDS ORDERED: NON-FORMULARY MEDICATION (Melatonin 5 MG) PO SCH (21:00)
[2019-05-11] MEDS: MoRPHine SULFATE 2 MG/ML CARP IV PRN (21:38)
[2019-05-12 06:15] LABS: Basophils # (auto) 0.01 K/uL (0-0.2); Basophils % (auto) 0.2 %; Eosinophils # (auto) 0.44 K/uL (0-0.5); Eosinophils % (auto) 7.2 %; Hematocrit (blood only) 40.9 % (37-47); Hemoglobin 13.9 g/dL (12.0-16.0); Immature Granulocytes # (auto) 0.05 K/uL (0.00-0.02); Immature Granulocytes % (auto) 0.8 %; Lymphocytes # (auto) 0.81 K/uL (1.2-3.4); Lymphocytes % (auto) 13.3 %; Mean Corpuscular Hemoglobin 31.4 pg (25-34); Mean Corpuscular Volume 92.3 fL (80-100); Mean Platelet Volume 9.6 fL (7.4-10.4); Monocytes # (auto) 1.23 K/uL (0.11-0.59); Monocytes % (auto) 20.3 %; Neutrophils # (auto) 3.53 K/uL (1.4-6.5); Neutrophils % (auto) 58.2 %; Platelet Count 167 K/uL (130-400); RDW Coefficient of Variation 13.5 % (11.5-14.5); RDW Standard Deviation 45.5 fL (36.4-46.3); Red Blood Count 4.43 M/uL (4.2-5.4); White Blood Count 6.07 K/uL (4.8-10.8)
[2019-05-12 06:38] LABS: BUN Creatinine Ratio 17.8 (10-20); Calcium 8.7 mg/dl (8.5-10.1); Creatinine Clr Calc Pharmacy 53.1 ml/min; Est GFR (African American) 96.4; Est GFR (Non-African American) 83.2; Magnesium 2.3 mg/dl (1.8-2.4)
[2019-05-12] MEDS: APIXABAN 2.5 MG TAB PO SCH (08:06)
[2019-05-12] MEDS: METOPROLOL TARTRATE 50 MG TAB PO SCH (08:06)
[2019-05-12] MEDS: CLOPIDOGREL BISULFATE 75 MG TAB PO SCH (08:06)
[2019-05-12] MEDS: ACETAMINOPHEN 325 MG TAB PO PRN (08:06)
[2019-05-12] MEDS: LACTOBACILLUS ACIDOPHILUS (FLORANEX) TAB PO SCH ×2 (08:07→12:16)
[2019-05-12] MEDS: FLUTICASONE/SALMETEROL 250/50 (ADVAIR) 14 PUFF/1 INHALER INH SCH (08:07)
[2019-05-12] MEDS: ASCORBIC ACID 500 MG TAB PO SCH (08:08)
[2019-05-12] MEDS: AMLODIPINE BESYLATE 5 MG TAB PO SCH (08:08)
[2019-05-12] MEDS: CHOLECALCIFEROL 1,000 UNITS TAB PO SCH (08:08)
[2019-05-12] MEDS ORDERED: cephALEXin 500 MG CAP PO SCH (09:00)
--- NOTE | 2019-05-12 10:42 | Discharge Summary ---
Date of Service May 12, 2019 Admission HPI Per Admitting Provider 88yo F PMH dementia, afib on eliquis, CAD s/p stent placement 2009, CHF latest EF 35%, SSS s/p pacemaker placement, h/o PE, chronic vertigo with excess falls and near-syncopal events presents from [facility] after mechanical fall this morning. Patient unable to provide history, therefore information from [facility] and ER staff. Patient got up to use restroom this AM and reports she used her wheelchair/walker to get to the bathroom, but on her way fell from a standing position onto the ground/onto her L hip. Resulted in immediate L hip pain. Patient transported to ER where imaging confirmed a L hip fracture. Labwork otherwise grossly negative. Abnormal UA will be sent for culture. Principal Diagnosis Fall, left hip fracture, UTI Discharge Exam Constitutional + thin (Sitting in chair, very pleasant); no acute distress Eyes + anicteric sclerae ENMT Mouth: no oropharynx abnormality and no oral mucosal abnormality Neck trachea midline, no thyromegaly Respiratory normal respiratory effort, lungs clear to auscultation Cardiovascular RRR, no murmur, no edema Chest (Breasts) Chest: + pacemaker Gastrointestinal (Abdomen) normal bowel sounds, soft, nontender, no hepatosplenomegaly Musculoskeletal Extremities: + extremities abnormal to inspection (left hip with dressing in place, mild ecchymosis, minimal edema, able to do leg lifts bilaterally), no cyanosis and no clubbing Skin no rashes, warm and dry Neurologic moves all extremities and awake; no focal motor deficits Psychiatric Orientation: alert, oriented to person and cooperative Lymphatic no lymphedema Discharge Data Allergies Allergy/AdvReac Type Severity Reaction Status Date / Time alendronate sodium Allergy Mild GI SYMPTOMS Verified 05/08/19 05:11 prednisone Allergy Unknown UNKOWN Verified 05/08/19 05:11 Consultations 05/08/19 05:22 ED Decision to Admit Stat 05/08/19 06:25 Consult Case Management - Discharge Planning Routine Consult Orthopedic Surgery Routine 05/08/19 09:11 Consult Cardiology Routine 05/09/19 16:57 Consult Case Management - Discharge Planning Routine Procedures Performed Operation Date: 05/09/19 14:40 Actual Procedures p Left Hip Open Reduction Internal Fixation Cannulated Screws(Left) - German Starks DO Ordered Studies 05/08/19 04:22 CT cervical spine wo con Urgent CT head/brain wo con Urgent 05/09/19 FL fluoroscopy <1hr Routine FL hip LT 2-3V Routine Chest x-ray Hospital Course (1) Hip fracture, left: Pt is an 88yo F PMH dementia, afib on eliquis, CAD s/p stent placement 2009, chronic systolic CHF (previous EF 35%, but then normalized 2018), SSS s/p pacemaker placement, h/o PE (on eliquis), chronic vertigo with excess falls and near-syncopal events admitted for acute L hip fracture. L hip fracture Osteoporosis with current pathological fracture L hip -Ortho consulted, appreciate management-now POD#3 s/p left hip ORIF, doing very well -Continue Eliquis as her DVT proph -Continue PT/OT-plan for rehab after discharge today -Head CT/Cervical spine CT no other fractures in fall -pain control with morphine p.o. at bedtime only, tylenol, po tramadol during the day as needed for moderate pain -Continue senna daily and bowel regimen to prevent constipation -Hgb with only minimal drop from admission and remains in normal range, no transfusion needed Stable for discharge -Will need orthopedics follow-up as planned (2) Congestive heart failure: Chronic systolic CHF-now resolved, was likely related to previous tachyarrhythmia -previous EF 35%, most recent now normal -monitor for volume overload-none so far -Continue home medications of metoprolol, digoxin (3) Atrial fibrillation: Afib/SSS-was in sinus rhythm here, except she was in an irregularly irregular rhythm but with rate control on postoperative day #2. She was back in a regular rhythm on the day of discharge Interrogation of her pacer prior to surgery shows that she does have periods of atrial fibrillation which are asymptomatic and rate controlled -Continue Eliquis -Pacemaker in situ -continue metoprolol, digoxin -Routine outpatient follow-up with cardiology (4) CAD (coronary artery disease): CAD s/p stenting 2009 No chest pain or acute issues -Continue home Plavix -continue metoprolol, statin (5) Stented coronary artery: as above (6) Dyspnea: Dyspnea -Chronic; cont home inhalers (7) Pre-syncope: With a h/o such Is not what led to this fall--> this fall was suspected to be from poor vision and mechanical fall Pacer interrogated and no arrhythmias at time of fall (8) Dementia: [id number] -supportive care (9) UTI (urinary tract infection): With abnormal UA on arrival, Ur cx growing Klebsiella pneumoniae, pansens except intermediate to nitrofurantoin -Initially received Rocephin and converted to po abx with keflex to finish out 7 day course after discharge-needs 3 more days worth (10) Underweight: BMI 19.6 -consult dietary for recommendations on improved nutrition-- recommend Boost Vanilla bid (11) Insomnia: Daughter initially requested tempazepam for prn use-pt was on this for 2 years and recently stopped it and started melatonin -no melatonin available here Restoril seem to make her agitated as per daughter -She then slept well with 1 dose of IV morphine on postoperative day #2 -Daughter requesting oral morphine for at bedtime upon discharge-provided at a low dose of 7.5 mg of immediate release morphine at bedtime as needed for pain (12) DVT prophylaxis: Code: daughter would like pt to be a FULL CODE until she discusses further with her siblings as pt not able to make decisions. Advanced directive says DNR if in poor prognosis/end stage condition Dispo: Stable for discharge to fpc facility at [facility] DVTP: Teresa Turner Total Time Total Time Spent Total Time Spent (In Minutes): 35 min Total Time Includes: Examination of the Patient, Discharge Planning, Medication Reconciliation and Communication With Other Providers (Orthopedics physicians residential assistant) Discharge Plan Discharge Items Patient Disposition: Transfer [facility] Fac Reason For Visit: HIP FRACTURE Discharge Diagnosis: Left hip fracture Condition on Discharge: Good Activity: As commented below Weightbearing: Left non-weightbearing Weightbearing Comment: with walker or crutches Non-emergency contact: Primary Care Provider and Surgeon Call non-emergency contact if: you have any medication questions, your symptoms worsen, your pain is not controlled, your temperature is above 101.5, your wound has increased redness and your wound has increased drainage Follow-up/Referrals: Gray Keller MD [Primary Care Provider] - Diet: Heart Healthy Addtl Attending Provider Instructions: You can take morphine immediate release orally at bedtime as needed for pain and take Tylenol 1000 mg p.o. every 8 hours during the day for pain. Please finish out the course of cephalexin for your urinary tract infection for 3 more days. Please follow-up with your primary care physician within 1 week and with orthopedics as directed below. 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 You are to ambulate with a walker or crutches for approximately 6 weeks. B. You are NON WEIGHT BEARING on your operative lower extremity for at least 6 weeks. C. Wear low heeled shoes with non-slip soles D. Be sure that your floors are free of things that could trip you throw rugs, electrical cords, and small objects. Avoid wet and waxed floors, especially with crutches/walker/cane. E. Try to walk several times a day with rest periods between. F. You may shower 48 hours after surgery and get the incision area wet, but DO NOT soak or submerge incision area in water. (No baths, swimming pools, hot tubs) G. You may have a large, band-aid like dressing over your incision (Aquacel). This will remain on your incision for 7 days, and then can be removed. You CAN shower with this on. If incision is leaking through the dressing, please call the office . H. Do NOT apply soap or any ointment/lotions directly over incision. I. You may use ice as needed to operative site. SPECIAL CARE INSTRUCTIONS: VERY IMPORTANT TO READ AND REVIEW A. You may be at risk for phlebitis or blood clots. a. Wear surgical stockings (KATYA hose) for 2 weeks after surgery to improve circulation and reduce swelling. b. RESUME YOUR ELIQUIS AND PLAVIX YOUR DOCTOR HAS ORDERED. . B. There are a few signs you need to watch for after you are home. Call [facility] [place] at [phone] if you experience any of the following: a. If you have a temperature of 101 degrees or higher. b. Sudden increase in pain in your hip not relieved by rest or pain medication. c. Any fluid or drainage from the incision; redness of the incision. d. Shortness of breath or chest pain. C. Call your physician if: a. Temperature is greater than 101 degrees (F). b. Pain is not relieved by prescribed pain medications. c. Increase drainage or redness from incision. d. Unanswered questions or concerns. D. Pain Medication: a. You will be prescribed pain medication upon discharge that should last till your first post-operative appointment. b. If you experience nausea and/or skin rash, discontinue this medication and contact our office for an alternative medication. c. Caution- narcotic pain medication can cause constipation. FOLLOW UP VISIT: Please call [facility] [place] at [phone] to schedule a follow up appointment 10-14 days from the date of your surgery date. Pending Studies at Discharge: No Stand-Alone Forms: My [facility] Skilled Items Patient informed of condition?: Yes DNR: No Discharge Level of Care: Skilled Communicable Disease: No Discharge Prognosis: Improving Lines: None Urinary Catheter: No Medications and DC Order Prescriptions: New cephalexin 500 mg Capsule 500 mg PO BID 3 Days Qty: 6 RF: 0 acetaminophen 500 mg capsule 1,000 mg PO Q8 Qty: 30 RF: 0 morphine 15 mg tablet 7.5 mg PO HS PRN (Reason: severe pain) Qty: 5 RF: 0 tramadol 50 mg tablet 25 mg PO Q8H PRN (Reason: pain) Qty: 10 RF: 0 Continued amlodipine 2.5 mg tablet 2.5 mg PO DAILY RF: 0 Prolia 60 mg/mL syringe 60 mg SQ .COMPLEX RF: 0 atorvastatin 20 mg tablet 20 mg PO QPM RF: 0 levalbuterol HCl [Xopenex] 0.63 mg/3 mL Solution For Nebulization 0.63 mg inhalation QID PRN (Reason: Wheezing) RF: 0 clopidogrel 75 mg tablet 75 mg PO QAM RF: 0 magnesium hydroxide [Milk of Magnesia] 400 mg/5 mL Suspension 30 ml PO .Q48H RF: 0 Preparation H(pe, witch susana) 0.25-50 % Gel 1 applic topical Q8H PRN (Reason: Hemorrhoids) RF: 0 bisacodyl [Dulcolax (bisacodyl)] 10 mg Suppository 10 mg MA .Q48 PRN (Reason: Constipation) RF: 0 ranitidine HCl 150 mg tablet 150 mg PO BID RF: 0 metoprolol tartrate 50 mg tablet 50 mg PO BID RF: 0 Fleet Enema 19-7 gram/118 mL Enema 118 ml MA Q72H RF: 0 nitroglycerin [Nitrostat] 0.4 mg Tablet, Sublingual 0.4 mg sublingual UD RF: 0 digoxin [Digox] 125 mcg tablet 125 mcg PO QAM RF: 0 albuterol sulfate 90 mcg/actuation Hfa Aerosol Inhaler 2 inh inhalation Q6H PRN (Reason: Shortness Of Breath Or Wheezing) RF: 0 fluticasone propionate 50 mcg/actuation spray,suspension 2 spray intranasal HS RF: 0 simethicone 80 mg Tablet,Chewable 80 mg PO TID PRN (Reason: Abdominal Discomfort) RF: 0 sodium chloride [Saline Nasal] 0.65 % Aerosol,Pevely 1 spray intranasal Q6H PRN (Reason: nasal discomfort) RF: 0 Lactobacillus acidophilus Tablet,Chewable 1 tab PO DAILY RF: 0 (DME) [employer] Eyelid Cleansing Pads Pad RF: 0 Airborne (lysine HCl) 1,000-50 mg Tablet, Effervescent 1,000 mg PO QAM RF: 0 diclofenac sodium [Voltaren] 1 % Gel 4 g topical BID PRN (Reason: Pain) RF: 0 melatonin 5 mg Tablet 5 mg PO HS RF: 0 cholecalciferol (vitamin D3) [Vitamin D3] 2,000 unit Tablet 2,000 unit PO QAM RF: 0 Tucks (witch susana) 50 % Pads, Medicated 50 % topical Q8 PRN (Reason: Hemorrhoids) RF: 0 Eliquis 2.5 mg tablet 2.5 mg PO BID RF: 0 Airborne (ascorbate sodium) 333-1.7 mg Tablet,Chewable 333 mg PO BID PRN (Reason: SUPPLEMENT) RF: 0 Benefiber Sugar Free (dextrin) 3 gram/3.8 gram Powder 3 g PO DAILY RF: 0 guaifenesin [Mucinex] 600 mg Tablet Extended Release 12hr 600 mg PO BID PRN (Reason: Cough) RF: 0 magnesium oxide 400 mg magnesium Tablet 400 mg PO QPM RF: 0 ascorbic acid (vitamin C) [Vitamin C] 500 mg tablet 500 mg PO DAILY RF: 0 fluticasone propion-salmeterol [Advair Diskus] 250-50 mcg/dose blister with d evice 1 inh inhalation BID RF: 0 hydrocortisone 1 % Ointment 1 applic TOPICAL BID PRN (Reason: irritation) RF: 0 meclizine 25 mg Tablet 25 mg PO TID PRN (Reason: Dizziness) RF: 0 hydrocortisone 1 % Cream 1 applic TOPICAL UD MDD 14 doses per month PRN (Reason: facial rash) RF: 0 Baby Shampoo 1 applic topical BID PRN (Reason: eyelid wash) RF: 0 Changed sennosides [senna] 8.6 mg Tablet 8.6 mg PO DAILY Qty: 0 RF: 0 Discontinued acetaminophen [Tylenol] 325 mg Tablet 650 mg PO TID MDD 3g/24hr PRN (Reason: Pain) RF: 0 tramadol 50 mg tablet 25 mg PO Q4 PRN (Reason: Pain) RF: 0 Discharge Orders: Discharge Order (Routine); Ordered 05/12/19 Ordered By: Helene Larsen Admission Data Admit Date/Time: 05/08/19 05:48 Attending Provider: Helene Larsen Admit Provider: Lu Turner Primary Care Provider: Gray Keller Other Providers: Chang Shrestha ; Lexa Elder ; Lenny Gonzalez
--- NOTE | 2019-05-12 12:07 | Orthopedic Progress Note ---
Date of Service May 12, 2019 Assessment & Plan (1) Hip fracture, left: pod #3 s/p Left Hip Open Reduction Internal Fixation Cannulated Screws(Left) utilizing 7.3 cannulated screws NWB left leg ice left hip Okay for discharge per orthopedics Subjective Pain improved. She has been up with therapy without difficulty. Physical Exam Musculoskeletal: No calf tenderness. No pain with rotation of the leg. Results & Data Vital Signs (Past 12 Hours) Vital Signs Temp Pulse Pulse Pulse Resp BP BP 05/12/19 11:33 36.6 C 70 105 H 66 14 166/72 H 147/80 H 05/12/19 07:21 36.6 C 66 14 147/80 H Pulse Ox 05/12/19 11:33 96 05/12/19 07:21 96
== END 2019-05-12 14:17 | DRG 481 ==
LOC: ED 03:54 → 3E 05:48 → SUATTDRO 05:48 → 3E 06:04